=== PATIENT | male | born 1980 | race Caucasian/White ===

== ENCOUNTER → 2016-12-13 | Outpatient (CLI) | payer OTHER ==
[2016-12-13 17:29] LABS: Potassium 24 Hour,Urine 117.8 mmol/24 (25.0-125.0)
== END | disposition home or self-care (01) ==
LOC: LABWHC1 16:13
PROVIDERS: ATTEND Family Medicine
DX: R35.0 Frequency of micturition (principal)
CPT/HCPCS: 36415; 81050; 82340; 82575; 84133; 84156; 84300

== ENCOUNTER 2017-01-20 18:52 | Emergency (ER) | payer OTHER ==
[2017-01-20 19:06] VITALS: TEMP 98.5
[2017-01-20] MEDS ORDERED: LORazepam 2 MG/ML SYRINGE IV PRN ×3 (19:11)
[2017-01-20] MEDS ORDERED: SODIUM CHLORIDE 0.9% 1,000 ML IV STA (19:11)
[2017-01-20] MEDS ORDERED: THIAMINE 100 MG/ML 2 ML VIAL IM STA (19:11)
[2017-01-20 19:45] LABS: Basophils % (A) 1 %; CH 31.1; CHCM 32.9; Eosinophils % (A) 1 %; HCT 43.7 % (39.0-53.0); HDW 1.89; HGB 14.4 gm/dL (13.0-17.5); Luc # (Auto) 0.11; Luc % (Auto) 2; Lymphocytes # (A) 1.6 k/uL (1.0-4.8); Lymphocytes % (A) 29 %; MCH 31.4 pg (25.0-35.0); Mean Platelet Volume 6.7; Monocytes # (A) 0.3 k/uL (0-1.0); Monocytes % (A) 5 %; Neutrophils # (A) 3.6 k/uL (1.3-7.7); Neutrophils % (A) 63 %; RBC 4.59 m/uL (4.30-5.90); RDW 14.7 % (11.5-15.5); WBC 5.7 k/uL (3.8-10.6); WBC (Perox) 5.66
--- NOTE | 2017-01-20 19:56 | ED ---
Psych HPI - General Source: police, RN notes reviewed Mode of arrival: ambulatory <Loretta Nicholas - Last Filed: 01/21/17 05:00> <Niko Carter - Last Filed: 01/21/17 07:18> - General Chief Complaint: Psychiatric Symptoms Stated Complaint: Mental Health Time Seen by Provider: 01/20/17 18:55 - History of Present Illness Initial Comments: 36-year-old male presents to the emergency department with a chief complaint of dictation. The patient states that he is an alcoholic. Patient states that he is a current drinker. The patient states that his called the police to have him come here because detected her that he just wanted to be done with this. He states that he wanted be done with their relationship that they're currently from. The patient denies any suicidal or homicidal ideation with this. Patient denies any thoughts about hurting himself. Patient denies any recent fever, chills, shortness of breath, chest pain, back pain, abdominal pain, nausea vomiting, numbness or tingling, dysuria or hematuria, constipation or diarrhea, headaches or visual changes, or any other current symptoms. (Loretta Nicholas) - Related Data Home Medications Medication Instructions Recorded Confirmed Ibuprofen [Motrin] 800 mg PO Q6HR PRN 01/20/17 01/20/17 PARoxetine HCL [Paxil] 30 mg PO DAILY 01/20/17 01/20/17 busPIRone HCL 15 mg PO TID 01/20/17 01/20/17 Allergies Allergy/AdvReac Type Severity Reaction Status Date / Time No Known Allergies Allergy Verified 01/20/17 19:20 Review of Systems ROS Other: All systems not noted in ROS Statement are negative. <Loretta Nicholas - Last Filed: 01/21/17 05:00> ROS Other: All systems not noted in ROS Statement are negative. <Niko Carter - Last Filed: 01/21/17 07:18> ROS Statement: Those systems with pertinent positive or pertinent negative responses have been documented in the HPI. Past Medical History Past Medical History: No Reported History History of Any Multi-Drug Resistant Organisms: None Reported Past Surgical History: No Surgical Hx Reported Past Psychological History: Anxiety, Depression Smoking Status: Current every day smoker Past Alcohol Use History: Abuse Past Drug Use History: None Reported <Loretta Nicholas - Last Filed: 01/21/17 05:00> General Exam Limitations: no limitations General appearance: alert, in no apparent distress Neck exam: Present: normal inspection. Absent: tenderness, meningismus, lymphadenopathy Respiratory exam: Present: normal lung sounds bilaterally. Absent: respiratory distress, wheezes, rales, rhonchi, stridor Cardiovascular Exam: Present: regular rate, normal rhythm, normal heart sounds. Absent: systolic murmur, diastolic murmur, rubs, gallop, clicks Neurological exam: Present: alert, oriented X3 Psychiatric exam: Present: normal affect, normal mood Skin exam: Present: warm, dry, intact, normal color. Absent: rash <Loretta Nicholas - Last Filed: 01/21/17 05:00> Course <Loretta Nicholas - Last Filed: 01/21/17 05:00> <Niko Carter - Last Filed: 01/21/17 07:18> Vital Signs 01/20/17 01/21/17 19:02 06:00 Temperature 98.5 F Pulse Rate 122 H 78 Respiratory 17 18 Rate Blood Pressure 157/78 106/59 O2 Sat by Pulse 96 98 Oximetry - Reevaluation(s) Reevaluation #1: 01/21/17 05:00 this case will be signed out to Dr. Carter. (Loretta Nicholas) Medical Decision Making - Lab Data Result diagrams: 01/20/17 19:30 01/20/17 19:30 <Loretta Nicholas - Last Filed: 01/21/17 05:00> - Lab Data Result diagrams: 01/20/17 19:30 01/20/17 19:30 <Niko Carter - Last Filed: 01/21/17 07:18> - Medical Decision Making 36-year-old male presents to the emergency department with a chief complaint of medication. Discontinue patient denies any suicidal or homicidal ideation. Patient is at this time intoxicated. at this time patient is clear of any acute medical conditions and can be seen and evaluated by psych and treatment as necessary. (Loretta Nicholas) - Lab Data Lab Results 01/20/17 01/20/17 01/21/17 Range/Units 19:30 19:30 06:15 WBC 5.7 (3.8-10.6) k/uL RBC 4.59 (4.30-5.90) m/uL Hgb 14.4 (13.0-17.5) gm/dL Hct 43.7 (39.0-53.0) % MCV 95.0 (80.0-100.0) fL MCH 31.4 (25.0-35.0) pg MCHC 33.0 (31.0-37.0) g/dL RDW 14.7 (11.5-15.5) % Plt Count 203 (150-450) k/uL Neutrophils % 63 % Lymphocytes % 29 % Monocytes % 5 % Eosinophils % 1 % Basophils % 1 % Neutrophils # 3.6 (1.3-7.7) k/uL Lymphocytes # 1.6 (1.0-4.8) k/uL Monocytes # 0.3 (0-1.0) k/uL Eosinophils # 0.0 (0-0.7) k/uL Basophils # 0.0 (0-0.2) k/uL Sodium 146 H (137-145) mmol/L Potassium 4.0 (3.5-5.1) mmol/L Chloride 103 (98-107) mmol/L Carbon Dioxide 25 (22-30) mmol/L Anion Gap 18 mmol/L BUN 24 H (9-20) mg/dL Creatinine 0.90 (0.66-1.25) mg/dL Est GFR (MDRD) Af Amer >60 (>60 ml/min/1.73 sqM) Est GFR (MDRD) Non-Af >60 (>60 ml/min/1.73 sqM) Glucose 137 H (74-99) mg/dL Calcium 9.1 (8.4-10.2) mg/dL Phosphorus 3.6 (2.5-4.5) mg/dL Magnesium 1.8 (1.6-2.3) mg/dL Total Bilirubin 0.3 (0.2-1.3) mg/dL AST 28 (17-59) U/L ALT 29 (21-72) U/L Alkaline Phosphatase 56 (38-126) U/L Total Protein 7.3 (6.3-8.2) g/dL Albumin 4.6 (3.5-5.0) g/dL Amylase 94 (30-110) U/L Lipase 231 (23-300) U/L Urine Color Yellow Urine Appearance Cloudy (Clear) Urine pH 6.5 (5.0-8.0) Ur Specific Lexa 1.023 (1.001-1.035) Urine Protein Trace H (Negative) Urine Glucose (UA) Negative (Negative) Urine Ketones Negative (Negative) Urine Blood Negative (Negative) Urine Nitrite Negative (Negative) Urine Bilirubin Negative (Negative) Urine Urobilinogen <2.0 (<2.0) mg/dL Ur Leukocyte Esterase Negative (Negative) Urine RBC 1 (0-5) /hpf Urine WBC <1 (0-5) /hpf Amorphous Sediment Occasional H (None) /hpf Urine Mucus Rare H (None) /hpf Urine Opiates Screen Not Detected (NotDetected) Ur Oxycodone Screen Not Detected (NotDetected) Urine Methadone Screen Not Detected (NotDetected) Ur Propoxyphene Screen Not Detected (NotDetected) Ur Barbiturates Screen Not Detected (NotDetected) U Tricyclic Antidepress Not Detected (NotDetected) Ur Phencyclidine Scrn Not Detected (NotDetected) Ur Amphetamines Screen Not Detected (NotDetected) U Methamphetamines Scrn Not Detected (NotDetected) U Benzodiazepines Scrn Not Detected (NotDetected) Urine Cocaine Screen Not Detected (NotDetected) U Marijuana (THC) Screen Not Detected (NotDetected) Disposition <Loretta Nicholas - Last Filed: 01/21/17 05:00> <Niko Carter - Last Filed: 01/21/17 07:18> Clinical Impression: Alcohol intoxication Disposition: HOME SELF-CARE Condition: Fair Instructions: Alcohol Intoxication (ED) Referrals: Eliezer Sauceda MD [Primary Care Provider] - 1-2 days
[2017-01-20 20:08] LABS: ALT 29 U/L (21-72); AST 28 U/L (17-59); Alkaline Phosphatase 56 U/L (38-126); Amylase 94 U/L (30-110); Anion Gap 18 mmol/L; Blood Urea Nitrogen 24 mg/dL (9-20); Calcium 9.1 mg/dL (8.4-10.2); Carbon Dioxide 25 mmol/L (22-30); Chloride 103 mmol/L (98-107); Glucose 137 mg/dL (74-99); Magnesium 1.8 mg/dL (1.6-2.3); Non-African American GFR(MDRD) >60 (>60 ml/min/1.73 sqM); Phosphorous 3.6 mg/dL (2.5-4.5); Sodium 146 mmol/L (137-145); Total Bilirubin 0.3 mg/dL (0.2-1.3); Total Protein 7.3 g/dL (6.3-8.2)
[2017-01-21 06:10] VITALS: BP 106/59; PULSE 78; RESP 18
[2017-01-21 06:46] LABS: Amorphous Sediment,Urine Occasional /hpf; Appearance,Urine Cloudy (Clear); Bilirubin,Urine Negative (Negative); Glucose,Urine (UA) Negative (Negative); Ketones,Urine Negative (Negative); Leukocyte Esterase,Urine Negative (Negative); Mucus,Urine Rare /hpf; Nitrite,Urine Negative (Negative); PH, Urine 6.5 (5.0-8.0); Particle Count 4959; Protein,Urine Trace (Negative); RBC,Urine 1 /hpf (0-5); Specific Gravity,Urine 1.023 (1.001-1.035); UA Billing (MACRO vs. MICRO) MICRO; Urobilinogen,Urine <2.0 mg/dL (<2.0); WBC,Urine <1 /hpf (0-5)
[2017-01-21] MEDS ORDERED: THIAMINE 100 MG TAB PO SCH (12:00)
== END 2017-01-21 08:51 | disposition home or self-care (01) ==
LOC: EC 18:52
DX: F10.129 Alcohol abuse with intoxication, unspecified (principal); F32.9 Major depressive disorder, single episode, unspecified; F41.9 Anxiety disorder, unspecified; F17.200 Nicotine dependence, unspecified, uncomplicated; Z79.899 Other long term (current) drug therapy
CPT/HCPCS: 36415; 80053; 82150; 83690; 83735; 84100; 85025; 81001; 80306; 99284; 96374; 96361; 96372; J2060; J3411

== ENCOUNTER 2017-03-23 16:39 | Emergency (ER) | payer OTHER ==
--- NOTE | 2017-03-23 17:13 | ED ---
General Adult HPI - General Source: patient, police, RN notes reviewed Mode of arrival: ambulatory Limitations: no limitations <Kushal Guzman - Last Filed: 03/24/17 00:18> <Baldomero Price - Last Filed: 03/24/17 06:38> <Baldomero Fletcher - Last Filed: 03/24/17 08:28> - General Chief complaint: Psychiatric Symptoms Stated complaint: petition Time Seen by Provider: 03/23/17 16:50 - History of Present Illness Initial comments: Patient is a pleasant 36-year-old male presenting to the emergency department by police escort for psychiatric evaluation. Patient does have a petition and Court order. Patient does admit to being depressed. Patient does admit to taking alcohol and having a problem with alcohol.Please use medication as discussed. Please follow-up with family doctor in the next 2 days of symptoms have not improved. Please return to emergency room if the symptoms increase or worsen or for any other concerns. Denies suicidal thoughts or suicidal threats. Patient denies homicidal thoughts. Patient denies physical complaint except for a mild toothache. No hallucinations. Patient has previously been admitted for alcohol and psychiatric problems. (Kushal Guzman) - Related Data Home Medications Medication Instructions Recorded Confirmed Ibuprofen [Motrin] 800 mg PO Q8H PRN 01/20/17 03/23/17 busPIRone HCL 15 mg PO TID 01/20/17 03/23/17 Sertraline [Zoloft] 100 mg PO DAILY 03/23/17 03/23/17 Allergies Allergy/AdvReac Type Severity Reaction Status Date / Time No Known Allergies Allergy Verified 03/23/17 17:28 Review of Systems ROS Other: All systems not noted in ROS Statement are negative. Constitutional: Denies: fever Eyes: Denies: eye pain ENT: Reports: dental pain. Denies: ear pain Respiratory: Denies: cough Cardiovascular: Denies: chest pain Endocrine: Denies: fatigue Gastrointestinal: Denies: abdominal pain Genitourinary: Denies: dysuria Musculoskeletal: Denies: back pain Skin: Denies: rash Neurological: Denies: weakness Psychiatric: Reports: depression. Denies: auditory hallucinations, visual hallucinations, homicidal thoughts <Kushal Guzman - Last Filed: 03/24/17 00:18> ROS Other: All systems not noted in ROS Statement are negative. <Baldomero Price - Last Filed: 03/24/17 06:38> ROS Other: All systems not noted in ROS Statement are negative. <Baldomero Fletcher - Last Filed: 03/24/17 08:28> ROS Statement: Those systems with pertinent positive or pertinent negative responses have been documented in the HPI. Past Medical History Past Medical History: No Reported History History of Any Multi-Drug Resistant Organisms: None Reported Past Surgical History: No Surgical Hx Reported Past Psychological History: Anxiety, Depression Smoking Status: Current every day smoker Past Alcohol Use History: Abuse Past Drug Use History: None Reported <Kushal Guzman - Last Filed: 03/24/17 00:18> General Exam Limitations: no limitations General appearance: alert, in no apparent distress, appears intoxicated Head exam: Present: atraumatic Eye exam: Present: normal appearance, PERRL ENT exam: Present: normal oropharynx, other (Patient complains of discomfort of the right upper lateral incisor without swelling or erythema.) Neck exam: Present: normal inspection Respiratory exam: Present: normal lung sounds bilaterally Cardiovascular Exam: Present: regular rate, normal rhythm GI/Abdominal exam: Present: soft. Absent: tenderness Extremities exam: Present: normal inspection Neurological exam: Present: alert Psychiatric exam: Present: depressed Skin exam: Present: normal color <Kushal Guzman - Last Filed: 03/24/17 00:18> Course <Kushal Guzman - Last Filed: 03/24/17 00:18> <Baldomero Price - Last Filed: 03/24/17 06:38> <Baldomero Fletcher - Last Filed: 03/24/17 08:28> Vital Signs 03/23/17 03/24/17 16:43 04:01 Temperature 99.0 F Pulse Rate 96 60 Respiratory 18 18 Rate Blood Pressure 121/81 130/59 O2 Sat by Pulse 97 96 Oximetry - Reevaluation(s) Reevaluation #1: 03/24/17 00:59 Dr. Price will be taking over care patient for final disposition. Patient is medically stable for psychiatric evaluation pending patient being sober. (Kushal Guzman) Medical Decision Making <Kushal Guzman - Last Filed: 03/24/17 00:18> <Baldomero Price - Last Filed: 03/24/17 06:38> <Baldomero Fletcher - Last Filed: 03/24/17 08:28> - Medical Decision Making Dr. Fletcher will be taking over the care of this patient at 7 AM (Baldomero Price) 36 male seen and evaluated by psychiatry, patient meets qualifications for inpatient psychiatric evaluation and treatment (Baldomero Fletcher) - Lab Data Lab Results 03/23/17 Range/Units 17:26 Urine Opiates Screen Not Detected (NotDetected) Ur Oxycodone Screen Not Detected (NotDetected) Urine Methadone Screen Not Detected (NotDetected) Ur Propoxyphene Screen Not Detected (NotDetected) Ur Barbiturates Screen Not Detected (NotDetected) U Tricyclic Antidepress Not Detected (NotDetected) Ur Phencyclidine Scrn Not Detected (NotDetected) Ur Amphetamines Screen Not Detected (NotDetected) U Methamphetamines Scrn Not Detected (NotDetected) U Benzodiazepines Scrn Not Detected (NotDetected) Urine Cocaine Screen Not Detected (NotDetected) U Marijuana (THC) Screen Not Detected (NotDetected) Disposition <Kushal Guzman - Last Filed: 03/24/17 00:18> <Baldomero Price - Last Filed: 03/24/17 06:38> <Baldomero Fletcher - Last Filed: 03/24/17 08:28> Clinical Impression: Suicidal ideation, Depression Disposition: TRANSFER TO PSYCH HOSP/UNIT Condition: Fair Referrals: Eliezer Sauceda MD [Primary Care Provider] - 1-2 days
[2017-03-23] MEDS ORDERED: ACETAMINOPHEN TAB 325 MG TAB PO STA (18:53)
[2017-03-23] MEDS ORDERED: SERTRALINE 100 MG TAB PO STA (19:46)
[2017-03-23] MEDS ORDERED: busPIRone HCl 10 MG TAB PO STA (19:46)
[2017-03-24] MEDS ORDERED: IBUPROFEN 800 MG TAB PO STA (03:50)
[2017-03-24] MEDS ORDERED: LORazepam 1 MG TAB PO STA ×3 (03:50→11:28)
[2017-03-24] MEDS ORDERED: SERTRALINE 100 MG TAB PO STA (07:45)
[2017-03-24] MEDS ORDERED: busPIRone HCl 5 MG TAB PO STA (07:45)
[2017-03-24] MEDS ORDERED: ONDANSETRON ODT 4 MG TAB PO STA (08:55)
[2017-03-24 09:01] LABS: Appearance,Urine Clear (Clear); Bilirubin,Urine Negative (Negative); Calcium Oxalate Crystals,Urine Rare /hpf; Glucose,Urine (UA) Negative (Negative); Ketones,Urine Negative (Negative); Leukocyte Esterase,Urine Negative (Negative); Mucus,Urine Few /hpf; Nitrite,Urine Negative (Negative); Particle Count 4296; Protein,Urine 2+ (Negative); RBC,Urine 13 /hpf (0-5); Specific Gravity,Urine 1.023 (1.001-1.035); Squamous Epithelial Cell,Urine <1 /hpf (0-4); UA Billing (MACRO vs. MICRO) MICRO; Urobilinogen,Urine <2.0 mg/dL (<2.0); WBC,Urine <1 /hpf (0-5)
[2017-03-24 09:05] LABS: Basophils % (A) 0 %; CH 31.5; Eosinophils % (A) 0 %; HCT 44.1 % (39.0-53.0); HDW 1.94; HGB 15.2 gm/dL (13.0-17.5); Luc # (Auto) 0.11; Luc % (Auto) 2; Lymphocytes % (A) 14 %; MCH 31.9 pg (25.0-35.0); MCHC 34.4 g/dL (31.0-37.0); MCV 92.8 fL (80.0-100.0); Mean Platelet Volume 7.2; Monocytes # (A) 0.3 k/uL (0-1.0); Monocytes % (A) 4 %; Neutrophils # (A) 5.8 k/uL (1.3-7.7); Neutrophils % (A) 80 %; RBC 4.75 m/uL (4.30-5.90); RDW 13.5 % (11.5-15.5); WBC 7.3 k/uL (3.8-10.6); WBC (Perox) 7.58
[2017-03-24 09:14] LABS: ALT 44 U/L (21-72); AST 50 U/L (17-59); Alkaline Phosphatase 59 U/L (38-126); Anion Gap 10 mmol/L; Blood Urea Nitrogen 19 mg/dL (9-20); Calcium 9.5 mg/dL (8.4-10.2); Carbon Dioxide 27 mmol/L (22-30); Chloride 100 mmol/L (98-107); Glucose 108 mg/dL (74-99); Non-African American GFR(MDRD) >60 (>60 ml/min/1.73 sqM); Potassium 4.3 mmol/L (3.5-5.1); Sodium 137 mmol/L (137-145); Total Bilirubin 0.9 mg/dL (0.2-1.3); Total Protein 7.6 g/dL (6.3-8.2)
[2017-03-24 11:15] VITALS: BP 135/68; PULSE 67; RESP 16; TEMP 98.5
== END 2017-03-24 11:47 ==
LOC: EC 16:39
DX: F32.9 Major depressive disorder, single episode, unspecified (principal); R45.851 Suicidal ideations; F10.10 Alcohol abuse, uncomplicated; F17.200 Nicotine dependence, unspecified, uncomplicated; Z79.899 Other long term (current) drug therapy
CPT/HCPCS: 36415; 80053; 80306; 81001; 82075; 85025; 99285

== ENCOUNTER 2017-10-18 02:39 | Emergency (ER) | payer OTHER ==
[2017-10-18] MEDS ORDERED: ACETAMINOPHEN TAB 500 MG TAB PO STA (03:05)
--- NOTE | 2017-10-18 03:38 | XR ---
EXAM: XR Left Toe(s), 2 or More Views CLINICAL HISTORY: ITS.REASON XR Reason: Pain TECHNIQUE: Frontal, lateral and oblique views of toe(s) of the left foot. COMPARISON: No relevant prior studies available. FINDINGS: Bones/joints: Tiny ossific fragments adjacent to the first phalanx is likely due to remote injury. No acute fracture. No dislocation. Soft tissues: Mild soft tissue swelling adjacent to the first interphalangeal joint No radiopaque foreign body. IMPRESSION: No acute fracture.
--- NOTE | 2017-10-18 04:08 | ED ---
Wound/Laceration HPI - General Chief Complaint: Wound/Laceration Stated Complaint: head lac,toe injury Time Seen by Provider: 10/18/17 02:57 Source: patient Mode of arrival: ambulatory Limitations: no limitations - History of Present Illness Initial Comments: 37-year-old male patient presents to the emergency department today for evaluation after falling while hanging curtains. Patient states that he was standing on a toy box that was about 2 feet tall. He states that his foot fell through the toy box, he fell backwards, states that the lid of the toy box flew forward striking him in the forehead. He denies any loss of consciousness at time of injury. He reports a laceration to his forehead, reports a mild headache, and is complaining of left great toe pain and discomfort. He reports he did have a tetanus vaccine in the last 5 years. Patient denies any neck pain , back pain, chest pain, shortness of breath, dizziness, weakness, abdominal pain, nausea, vomiting, or difficulties with bowel movements or urination. - Related Data Previous Rx's Medication Instructions Recorded Amoxicillin/Potassium Clav 1 tab PO Q12HR #20 tab 08/06/17 [Augmentin 875-125 Tablet] HYDROmorphone [Dilaudid] 1 mg PO Q4HR PRN #12 tab 08/06/17 Allergies Allergy/AdvReac Type Severity Reaction Status Date / Time No Known Allergies Allergy Verified 10/18/17 02:48 Review of Systems ROS Statement: Those systems with pertinent positive or pertinent negative responses have been documented in the HPI. ROS Other: All systems not noted in ROS Statement are negative. Past Medical History Past Medical History: No Reported History History of Any Multi-Drug Resistant Organisms: None Reported Past Surgical History: No Surgical Hx Reported Past Psychological History: Anxiety, Depression Smoking Status: Current every day smoker Past Alcohol Use History: None Reported Past Drug Use History: None Reported General Exam Limitations: no limitations General appearance: alert, in no apparent distress, other (Social well-developed , well-nourished adult male patient in no acute distress. Vital signs upon presentation are temperature 97.6F, pulse 79, respirations 18, blood pressure 120/76, pulse ox 100% on room air.) Head exam: Present: other (Patient has a stellate laceration noted to the center of the forehead, there is surrounding hematoma.). Absent: atraumatic, normal inspection Eye exam: Present: normal appearance, PERRL, EOMI. Absent: scleral icterus, conjunctival injection, nystagmus, periorbital swelling, periorbital tenderness ENT exam: Present: normal exam, normal oropharynx, mucous membranes moist, TM's normal bilaterally Neck exam: Present: normal inspection, full ROM, other (Nontender, no step-off, no deformity to firm midline palpation of the posterior cervical spine. Full range of motion without pain or limitation.). Absent: tenderness, meningismus, lymphadenopathy Respiratory exam: Present: normal lung sounds bilaterally. Absent: respiratory distress, wheezes, rales, rhonchi, stridor Cardiovascular Exam: Present: regular rate, normal rhythm, normal heart sounds. Absent: systolic murmur, diastolic murmur, rubs, gallop, clicks GI/Abdominal exam: Present: soft, normal bowel sounds. Absent: distended, tenderness, guarding, rebound, rigid Extremities exam: Present: full ROM, normal capillary refill, other (Patient has a superficial abrasion noted to the medial left forearm, no bony tenderness. There is an abrasion and ecchymosis noted to the dorsum of the left great toe. Skin to all 4 extremities is pink, warm, and dry. Cap refills less than 3 seconds. Pedal and posttibial pulses are 2+ and equal bilaterally. Radial pulses are 2+ and equal bilaterally.). Absent: normal inspection, tenderness, pedal edema, joint swelling, calf tenderness Back exam: Present: normal inspection, other (Nontender, no step-off, no deformity to firm midline palpation of the thoracic and lumbar vertebrae. Full range of motion without pain or limitation.). Absent: vertebral tenderness Neurological exam: Present: alert, oriented X3, CN II-XII intact, other ( Strength in all 4 cavities is 5/5.) Psychiatric exam: Present: normal affect, normal mood Skin exam: Present: warm, dry, intact, normal color. Absent: rash Course Vital Signs 10/18/17 10/18/17 02:44 04:14 Temperature 97.6 F 97.9 F Pulse Rate 79 72 Respiratory 18 16 Rate Blood Pressure 120/76 137/82 O2 Sat by Pulse 100 98 Oximetry Procedures - Laceration Laceration #1 Consent Obtained: verbal consent Time Out Performed: Yes Indication: laceration Site: face (Forehead) Size (cm): 2 Description: stellate Depth: simple, single layer Anesthetic Used: lidocaine 1% Anesthesia Technique: local infiltration Amount (mls): 3 Pre-repair: irrigated extensively Type of Sutures: nylon Size of Sutures: 5-0, 6-0 Number of Sutures: 4 Technique: simple, interrupted Patient Tolerated Procedure: well, no complications Medical Decision Making - Medical Decision Making 37 old male patient presented to the emergency department today for evaluation after falling from a toy box. Physical examination did reveal a small 2 cm laceration to the center of the forehead. There is no bony step-off or deformity surrounding the laceration. Patient also had multiple abrasions and contusions. Patient is neurologically intact. He did describe a headache and some mild nausea. I did discuss that symptoms could be consistent with a mild concussion. He was educated regarding signs or symptoms of worsening head injury. I informed him that his x-ray of the toe was negative for any acute fractures. I discussed use of ice to the painful areas. Discussed use of Tylenol and IV for pain control. He is instructed to return here immediately for any new, worsening, or concerning symptoms. He verbalizes understanding and agrees with this plan. - Radiology Data Radiology results: report reviewed, image reviewed Two-view x-ray of the chest shows a heart and mediastinum are normal. Lungs are clear. Diaphragm is normal. Bony thorax appears normal. Impression by Dr. High shows normal chest with no change. Disposition Clinical Impression: Concussion, Laceration, Contusion of great toe Disposition: HOME SELF-CARE Condition: Good Instructions: Care For Your Stitches (ED), Laceration (ED), Concussion (ED), Contusion in Adults (ED), Hematoma (ED) Additional Instructions: Keep wound clean and dry. Return in 3-5 days to have your stitches removed. Clean wound twice daily with warm water and antibacterial soap. Apply ice to the painful areas 20 minutes at a time at least 4 times daily. Follow-up with your primary care physician for recheck in 1-2 days. Return here immediately for any new, worsening, or concerning symptoms. Referrals: Eliezer Sauceda MD [Primary Care Provider] - 1-2 days Time of Disposition: 04:08
[2017-10-18 04:15] VITALS: BP 137/82; PULSE 72; RESP 16; TEMP 97.9
== END 2017-10-18 04:14 | disposition home or self-care (01) ==
LOC: EC 02:39
DX: S06.0X0A Concussion without loss of consciousness, initial encounter (principal); S01.81XA Laceration without foreign body of other part of head, initial encounter; S90.112A Contusion of left great toe without damage to nail, initial encounter; F17.200 Nicotine dependence, unspecified, uncomplicated; W17.89XA Other fall from one level to another, initial encounter; W20.8XXA Other cause of strike by thrown, projected or falling object, initial encounter; Y92.009 Unspecified place in unspecified non-institutional (private) residence as the place of occurrence of the external cause
CPT/HCPCS: 12011; 99283

== ENCOUNTER → 2019-02-14 | Outpatient (CLI) | payer BC ==
--- NOTE | 2019-02-15 07:10 | US ---
EXAMINATION TYPE: US kidneys/renal and bladder DATE OF EXAM: 02/14/2019 COMPARISON: NONE CLINICAL HISTORY: R35.0 Frequency of micturition. Frequent urination EXAM MEASUREMENTS: Right Kidney: 11.0 x 4.6 x 5.0 cm Left Kidney: 11.1 x 6.4 x 5.0 cm Post Void Residual Volume: 12.8 mL Right Kidney: No hydronephrosis or nephrolithiasis Left Kidney: wnl Bladder: wnl Bilateral Jets seen: yes Normal Post Void Residual: yes IMPRESSION: No definite hydronephrosis or nephrolithiasis.
--- NOTE | 2019-02-15 07:13 | US ---
EXAMINATION TYPE: US scrotum with doppler. Grayscale and color Doppler Duplex imaging performed of t neha scrotum. DATE OF EXAM: 02/14/2019 COMPARISON: NONE CLINICAL HISTORY: N50.819.... Frequent urination EXAM MEASUREMENTS: TESTICLES: Right Testicle: 5.0 x 2.6 x 3.4 cm Left Testicle: 4.8 x 2.8 x 3.0 cm EPIDIDYMIS HEAD: Right Epididymis: 0.7 x 1.4 x 1.7 cm Left Epididymis: 1.0 x 1.3 x 1.6 cm Doppler performed to assess for testicular vascularity; good bilateral color flow and waveforms are s een. There is no evidence of testicular torsion. Presence of hydroceles: no Presence of varicoceles: no Left epididymis: 0.4cm cyst IMPRESSION: 1. There is a 4 mm left epididymal cyst.
== END | disposition home or self-care (01) ==
LOC: RADUSWWP 15:42
PROVIDERS: ATTEND Family Medicine
DX: N50.3 Cyst of epididymis (principal); R35.0 Frequency of micturition
CPT/HCPCS: 76770; 76870; 93975

== ENCOUNTER 2019-06-07 16:02 | Emergency (ER) | payer BC ==
[2019-06-07] MEDS ORDERED: SODIUM CHLORIDE 0.9% 1,000 ML IV ONE (16:40)
[2019-06-07] MEDS ORDERED: ONDANSETRON ODT 4 MG TAB PO STA (16:42)
[2019-06-07 17:17] LABS: Basophils % (A) 0 %; Eosinophils # (A) 0.1 k/uL (0-0.7); Eosinophils % (A) 1 %; HGB 13.8 gm/dL (13.0-17.5); Lymphocytes # (A) 2.3 k/uL (1.0-4.8); Lymphocytes % (A) 21 %; MCH 31.1 pg (25.0-35.0); MCHC 32.9 g/dL (31.0-37.0); MCV 94.4 fL (80.0-100.0); Mean Platelet Volume 7.1; Monocytes # (A) 0.5 k/uL (0-1.0); Monocytes % (A) 5 %; Neutrophils # (A) 8.2 k/uL (1.3-7.7); Neutrophils % (A) 73 %; Platelet Count 296 k/uL (150-450); RBC 4.45 m/uL (4.30-5.90); RDW 12.7 % (11.5-15.5); WBC 11.4 k/uL (3.8-10.6)
[2019-06-07 17:29] LABS: ALT 27 U/L (21-72); AST 26 U/L (17-59); African American GFR (CKD) >90 (>60 ml/min/1.73 sqM); Albumin 4.8 g/dL (3.5-5.0); Alkaline Phosphatase 45 U/L (38-126); Anion Gap 12 mmol/L; Blood Urea Nitrogen 7 mg/dL (9-20); Calcium 9.5 mg/dL (8.4-10.2); Carbon Dioxide 26 mmol/L (22-30); Chloride 100 mmol/L (98-107); Glucose 91 mg/dL (74-99); Potassium 4.4 mmol/L (3.5-5.1); Sodium 138 mmol/L (137-145); Total Bilirubin 0.6 mg/dL (0.2-1.3); Total Protein 7.7 g/dL (6.3-8.2)
--- NOTE | 2019-06-07 17:51 | ED ---
General Adult HPI - General Chief complaint: Recheck/Abnormal Lab/Rx Stated complaint: needs fluids, night sweats, shaking Time Seen by Provider: 06/07/19 16:10 Source: patient Mode of arrival: ambulatory Limitations: no limitations - History of Present Illness Initial comments: The patient is a 38-year-old male presents to the emergency department with reported "withdrawal like symptoms". The patient has a previous history of alcohol abuse. States that he hasn't had a drink in 30 days. His primary care physician did give him a shot of vivatrol 2 days ago. He states that one hour after the shot was administered that he began having symptoms of nausea, vomiting and decreased appetite. He was also reporting to shakes and generalized weakness. Called his primary care physician who recommended he come into the emergency room for laboratory studies. The patient denies drinking alcohol or using any illicit drugs. No other medication changes. He denies any sick contacts or recent travel. No abdominal pain. Denies any changes in bowel or bladder habits. No chest pain or shortness of breath. Her no other alleviating, precipitating or modifying factors - Related Data Home Medications Medication Instructions Recorded Confirmed busPIRone HCl [Buspar] 10 mg PO TID 06/07/19 06/07/19 Previous Rx's Medication Instructions Recorded LORazepam [Ativan] 0.5 mg PO TID PRN 3 Days #9 tab 06/07/19 Ondansetron Odt [Zofran Odt] 4 mg PO Q8HR PRN #10 tab 06/07/19 Allergies Allergy/AdvReac Type Severity Reaction Status Date / Time No Known Allergies Allergy Verified 06/07/19 17:14 Review of Systems ROS Statement: Those systems with pertinent positive or pertinent negative responses have been documented in the HPI. ROS Other: All systems not noted in ROS Statement are negative. Past Medical History Past Medical History: No Reported History History of Any Multi-Drug Resistant Organisms: None Reported Past Surgical History: No Surgical Hx Reported Past Psychological History: Anxiety, Depression Smoking Status: Current every day smoker Past Alcohol Use History: Abuse Past Drug Use History: None Reported General Exam Limitations: no limitations General appearance: alert, in no apparent distress Head exam: Present: atraumatic, normocephalic, normal inspection Eye exam: Present: normal appearance, PERRL, EOMI. Absent: scleral icterus, conjunctival injection, periorbital swelling ENT exam: Present: normal exam, mucous membranes moist Neck exam: Present: normal inspection. Absent: tenderness, meningismus, lymphadenopathy Respiratory exam: Present: normal lung sounds bilaterally. Absent: respiratory distress, wheezes, rales, rhonchi, stridor Cardiovascular Exam: Present: regular rate, normal rhythm, normal heart sounds. Absent: systolic murmur, diastolic murmur, rubs, gallop, clicks GI/Abdominal exam: Present: soft, normal bowel sounds. Absent: distended, tenderness, guarding, rebound, rigid Extremities exam: Present: normal inspection, full ROM, normal capillary refill. Absent: tenderness, pedal edema, joint swelling, calf tenderness Back exam: Present: normal inspection Neurological exam: Present: alert, oriented X3, CN II-XII intact Psychiatric exam: Present: normal affect, normal mood Skin exam: Present: warm, dry, intact, normal color. Absent: rash Course Vital Signs 06/07/19 06/07/19 16:05 19:31 Temperature 98.1 F 98.4 F Pulse Rate 78 70 Respiratory 20 18 Rate Blood Pressure 119/76 103/59 O2 Sat by Pulse 99 97 Oximetry EKG Findings - EKG Comments: EKG Findings:: EKG demonstrates a normal sinus rhythm with a ventricular rate of 64. AR interval 158. QRS 104. QTC 408. There are no acute ST segment elevations or depressions concerning for ischemic change. No signs of Ltvqi-[id number]-Uahpe or Brugada syndrome Medical Decision Making - Medical Decision Making Upon arrival the patient was placed into room 20. A history and physical exam was performed. PIV was established. Patient was given a liter bolus of normal saline. He was also given 4 mg of Zofran for nausea. Lab studies were conducted. Patient with blood cell count 11.4, BUN of 7. TSH is normal. Patient also has a 12-lead EKG performed. I did reevaluate the patient who reports improvement in his symptoms. At this time the patient does feel comfortable going home. I will prescribe him Zofran and Ativan to be taken at home for her symptoms. Side effect profile is discussed. He is to not work or drive while taking the medications. He needs to follow up with his primary care physician. The patient agreed to this. If he has any new or worsening symptoms, he should return to the emergency room. He was discharged home in stable condition - Lab Data Result diagrams: 06/07/19 17:09 06/07/19 17:09 Lab Results 06/07/19 06/07/19 06/07/19 Range/Units 17:09 17:09 17:09 WBC 11.4 H (3.8-10.6) k/uL RBC 4.45 (4.30-5.90) m/uL Hgb 13.8 (13.0-17.5) gm/dL Hct 42.0 (39.0-53.0) % MCV 94.4 (80.0-100.0) fL MCH 31.1 (25.0-35.0) pg MCHC 32.9 (31.0-37.0) g/dL RDW 12.7 (11.5-15.5) % Plt Count 296 (150-450) k/uL Neutrophils % 73 % Lymphocytes % 21 % Monocytes % 5 % Eosinophils % 1 % Basophils % 0 % Neutrophils # 8.2 H (1.3-7.7) k/uL Lymphocytes # 2.3 (1.0-4.8) k/uL Monocytes # 0.5 (0-1.0) k/uL Eosinophils # 0.1 (0-0.7) k/uL Basophils # 0.0 (0-0.2) k/uL Sodium 138 (137-145) mmol/L Potassium 4.4 (3.5-5.1) mmol/L Chloride 100 (98-107) mmol/L Carbon Dioxide 26 (22-30) mmol/L Anion Gap 12 mmol/L BUN 7 L (9-20) mg/dL Creatinine 0.83 (0.66-1.25) mg/dL Est GFR (CKD-EPI)AfAm >90 (>60 ml/min/1.73 sqM) Est GFR (CKD-EPI)NonAf >90 (>60 ml/min/1.73 sqM) Glucose 91 (74-99) mg/dL Plasma Lactic Acid Mustapha 0.8 (0.7-2.0) mmol/L Calcium 9.5 (8.4-10.2) mg/dL Total Bilirubin 0.6 (0.2-1.3) mg/dL AST 26 (17-59) U/L ALT 27 (21-72) U/L Alkaline Phosphatase 45 (38-126) U/L Total Protein 7.7 (6.3-8.2) g/dL Albumin 4.8 (3.5-5.0) g/dL TSH 0.823 (0.465-4.680) mIU/L Disposition Clinical Impression: Nausea, Medication adverse effect Disposition: HOME SELF-CARE Condition: Stable Instructions (If sedation given, give patient instructions): Acute Nausea and Vomiting (ED) Additional Instructions: Please follow-up with your primary care doctor in 2-4 days. Return to the emergency room for any new or worsening symptoms. Please take the Ativan as directed. Do not work or drive while you take it. Prescriptions: LORazepam [Ativan] 0.5 mg PO TID PRN 3 Days #9 tab PRN Reason: Anxiety Ondansetron Odt [Zofran Odt] 4 mg PO Q8HR PRN #10 tab PRN Reason: Nausea Is patient prescribed a controlled substance at d/c from ED?: Yes When asked, does pt state using other controlled substances?: No If prescribed controlled substance>3 days was MAPS reviewed?: Prescribed <3 Days Referrals: Jo-Ann Barnett MD [Primary Care Provider] - 1-2 days Time of Disposition: 19:10
[2019-06-07 19:31] VITALS: BP 103/59; PULSE 70; RESP 18; TEMP 98.4
== END 2019-06-07 19:32 | disposition home or self-care (01) ==
LOC: EC 16:02
DX: R11.2 Nausea with vomiting, unspecified (principal); T50.7X5A Adverse effect of analeptics and opioid receptor antagonists, initial encounter; R53.1 Weakness; F32.9 Major depressive disorder, single episode, unspecified; F17.200 Nicotine dependence, unspecified, uncomplicated; F41.9 Anxiety disorder, unspecified; Z79.899 Other long term (current) drug therapy
CPT/HCPCS: 36415; 80053; 83605; 84443; 85025; 93005; 96360; 96361; 99283

== ENCOUNTER → 2021-03-17 | Outpatient (CLI) | payer BC ==
--- NOTE | 2021-03-18 03:02 | MR ---
EXAMINATION TYPE: MR brain wo/w con DATE OF EXAM: 03/17/2021 COMPARISON: None HISTORY: Intermittant headache with vision changes, dizziness CONTRAST: Standard multiplanar, multisequence MRI departmental protocol utilizing 9 mL intravenous Gadavist jhonny olinium contrast. Diffusion images show no evidence of an acute infarct. Ventricles have normal size. There is no mass effect nor midline shift. There is no evidence of intracranial hemorrhage. Brainstem is intact. Cerebellum is intact. Sweet-white matter structures have fairly normal signal pat tern. There is no evidence of cerebral edema. Corpus callosum appears normal. Optic chiasm appears no rmal. There is no evidence of orbital mass. Contrast images show no pathologic enhancement there is n ormal enhancement of the venous sinuses. IMPRESSION: Negative MR scan of the brain.
== END | disposition home or self-care (01) ==
LOC: RADMRIMAIN 09:32
PROVIDERS: ATTEND Family Medicine
DX: R51.9 Headache, unspecified (principal); R42 Dizziness and giddiness; H53.9 Unspecified visual disturbance
CPT/HCPCS: 70553; A9585

== ENCOUNTER 2021-06-13 17:54 | Inpatient (IN) | payer BC ==
[2021-06-13] MEDS ORDERED: SODIUM CHLORIDE 0.9% 1,000 ML IV STA (18:23)
[2021-06-13] MEDS ORDERED: ONDANSETRON 4 MG/2 ML VIAL IVP STA (18:23)
[2021-06-13] MEDS ORDERED: diphenhydrAMINE 50 MG/ML 1 ML VIAL IVP STA (18:23)
[2021-06-13] MEDS ORDERED: MORPHINE SULFATE 4 MG/ML SYRINGE IV STA (18:23)
[2021-06-13] MEDS ORDERED: acetaZOLAMIDE 250 MG TAB PO STA (18:24)
[2021-06-13 19:16] LABS: ALT 30 U/L (4-49); AST 39 U/L (17-59); African American GFR (CKD) >90 (>60 ml/min/1.73 sqM); Albumin 3.3 g/dL (3.5-5.0); Alcohol <10 mg/dL; Alkaline Phosphatase 78 U/L (38-126); Anion Gap 9 mmol/L; Blood Urea Nitrogen 5 mg/dL (9-20); Calcium 8.2 mg/dL (8.4-10.2); Carbon Dioxide 20 mmol/L (22-30); Chloride 97 mmol/L (98-107); Glucose 120 mg/dL (74-99); Magnesium 1.9 mg/dL (1.6-2.3); Non-African American GFR(CKD) >90 (>60 ml/min/1.73 sqM); Potassium 2.9 mmol/L (3.5-5.1); Sodium 126 mmol/L (137-145); Total Bilirubin 1.2 mg/dL (0.2-1.3); Total Protein 5.9 g/dL (6.3-8.2)
[2021-06-13 19:21] LABS: Amylase 713 U/L (30-110)
[2021-06-13 19:34] LABS: Appearance,Urine Clear (Clear); Bilirubin,Urine Negative (Negative); Blood,Urine Trace (Negative); Color,Urine Yellow; Glucose,Urine (UA) Negative (Negative); Ketones,Urine 1+ (Negative); Leukocyte Esterase,Urine Negative (Negative); Nitrite,Urine Negative (Negative); Protein,Urine 1+ (Negative); RBC,Urine 1 /hpf (0-5); Specific Gravity,Urine 1.006 (1.001-1.035); Urobilinogen,Urine <2.0 mg/dL (<2.0); WBC,Urine <1 /hpf (0-5)
[2021-06-13 19:35] LABS: Partial Thromboplastin Time 25.7 sec (22.0-30.0); Prothrombin Time 11.1 sec (9.0-12.0)
[2021-06-13 19:37] LABS: Basophils % (A) 0 %; Eosinophils % (A) 0 %; HCT 38.9 % (39.0-53.0); Lymphocytes # (A) 0.8 k/uL (1.0-4.8); Lymphocytes % (A) 6 %; MCH 32.4 pg (25.0-35.0); MCHC 35.9 g/dL (31.0-37.0); MCV 90.2 fL (80.0-100.0); Mean Platelet Volume 9.6; Monocytes # (A) 0.6 k/uL (0-1.0); Monocytes % (A) 4 %; Neutrophils # (A) 12.3 k/uL (1.3-7.7); Neutrophils % (A) 89 %; RBC 4.32 m/uL (4.30-5.90); RDW 13.2 % (11.5-15.5); WBC 13.9 k/uL (3.8-10.6)
[2021-06-13] MEDS ORDERED: POTASSIUM CHLORIDE ER 20 MEQ TAB.ER PO STA ×2 (19:44→22:32)
--- NOTE | 2021-06-13 19:48 | XR ---
EXAMINATION TYPE: XR chest 2V DATE OF EXAM: 06/13/2021 COMPARISON: NONE HISTORY: Chest pain TECHNIQUE: 2 views FINDINGS: Heart and mediastinum are normal. Lungs are clear. Diaphragm is normal. Bony thorax is inta ct. IMPRESSION: Normal chest. No change.
--- NOTE | 2021-06-13 19:50 | ED ---
General Adult HPI - General Chief complaint: Chest Pain Stated complaint: abd pain/chest pain Time Seen by Provider: 06/13/21 17:58 Source: patient, EMS Mode of arrival: EMS Limitations: no limitations - History of Present Illness Initial comments: Patient is a 40-year-old male with past medical history remarkable for pseudotumor cerebri, chronic neck pain, alcohol abuse who presents from [facility] where he is completing alcohol abuse rehab. He is concerned for having chest tightness throughout the day today and yesterday, as well as mild dyspnea. He is also endorsing some epigastric abdominal pain as well as generalized abdominal pain that is sharp and achy. He is very nonspecific with his pain. He states he has noticed loose stools. He is having nausea as well as nonbilious emesis. He believes that he may have seen some blood in both his stools and emesis, however but is unable to provide how much. He denies any fevers, chills, cough. Denies any current headaches but does endorse worsening neck pain which is acute on chronic secondary to an accident at work. He does not believe he has any acute trauma, however he is expressing worsening neck pain. He is on Acetazolamide for pseudotumor cerebri and did not take his evening medication. He'll ice take lines any acute complaints at this time. Patient was about to be discharged from the rehab facility when he began expressing these symptoms. Denies any history of blood clots. Does endorse a family history of cardiovascular disease. Received aspirin, as well as nitro and Ativan by EMS en route to the hospital. - Related Data Home Medications Medication Instructions Recorded Confirmed Cyclobenzaprine [Flexeril] 5 mg PO HS PRN 06/13/21 06/13/21 acetaZOLAMIDE [Diamox] 250 mg PO BID 06/13/21 06/13/21 Allergies Allergy/AdvReac Type Severity Reaction Status Date / Time pineapple Allergy Unknown Verified 06/13/21 22:17 Review of Systems ROS Statement: Those systems with pertinent positive or pertinent negative responses have been documented in the HPI. Review of Systems: CONST: Denies fever EYES: Denies blurry vision ENT: Denies nasal congestion C/V: Endorses chest tightness RESP: Denies shortness of breath GI: Endorses abdominal pain : Denies dysuria SKIN: Denies rash. MSK: Endorses acute on chronic neck pain NEURO: Denies headache ROS Other: All systems not noted in ROS Statement are negative. Past Medical History Past Medical History: No Reported History Additional Past Medical History / Comment(s): psedotumor History of Any Multi-Drug Resistant Organisms: None Reported Past Surgical History: Tonsillectomy Past Psychological History: Anxiety, Depression Smoking Status: Former smoker Past Alcohol Use History: Abuse Past Drug Use History: Marijuana General Exam - General Exam Comments Initial Comments: General: He is in mild distress secondary primarily to abdominal pain. HEAD: Normal with no signs of head trauma. EYES: PERRLA, EOMI, conjunctiva normal, no discharge. ENT: Hearing grossly intact, normal oropharynx. RESPIRATORY: [Clear breath sounds bilaterally. No wheezes, rales, or rhonchi. C/V: Regular rate and rhythm. S1 and S2 auscultated, no edema, peripheral pulses 2+ and intact throughout ABD: Abdomen is soft, nondistended. Patient is tender to palpation generally, with mild focus in the epigastric region. No rebound tenderness. No peritoneal signs. No guarding. EXT: Mild midline cervical spine tenderness to palpation. SKIN: No rashes or lesions observed on exposed skin. NEURO: Alert and oriented x 4. Cranial nerves II-XII intact. No focal sensory or strength deficits. Limitations: no limitations Course Vital Signs 06/13/21 06/13/21 18:00 21:05 Temperature 98.6 F Pulse Rate 112 H 99 Respiratory 20 20 Rate Blood Pressure 119/77 130/83 O2 Sat by Pulse 98 100 Oximetry Medical Decision Making - Medical Decision Making Based on the patient's presentation and physical exam, I'm concerned for possible intra-abdominal pathology for his current symptoms. Due to his nonspecific chest pain, rule out cardiac etiology pulmonary etiology either. Therefore we will obtain a cardiac workup as well as abdominal labs and d-dimer rule out for pulmonary embolism. Chest x-ray, EKG will also be obtained. I will give him a dose of his nightly acetazolamide. He will be symptomatically treated with IV morphine, IV Zofran, as well as 1 L fluid bolus. He also received 25 mg IV Benadryl. Patient was in agreement this plan. EKG was remarkable for minor sinus tachycardia without any obvious ischemic changes. Patient's chest x-ray showed no acute cardiopulmonary process. There were trace studies are remarkable for a leukocytosis of 13.9. D-dimer is slightly elevated at 3.06. Patient has some electrode abnormalities including hyponatremia of 126, hypokalemia of 2.9, hypochloremia of 97. Patient's tro ponin is negative. Patient has pancreatitis with an elevated amylase of 713 and lipase of 3000. Urinalysis is unremarkable. ETOH level is negative. Covid level is negative. Due to the patient's elevated d-dimer as well as pancreatitis we will obtain CT imaging of the chest as well as abdomen and pelvis. CTA of the chest revealed no signs of acute pulmonary embolism. CT abdomen and pelvis revealed findings concerning for acute pancreatitis. There are no, dictation to the pancreatitis. CT of the cervical spine was also obtained due to his acute on chronic pain which revealed no acute changes. On reevaluation, patient still complaining of nausea as well as abdominal pain. Due to his acute pancreatitis at and electrode abnormalities of like to admit him to the hospital. Due to his hypokalemia was replenished 20 mEq in the emergency department initially additional 20 later on. He was in agreement with this plan. We will continue with pain management and fluid hydration. I spoke with the admitting physician Dr. Coronado was in agreement this plan. Patient was admitted in serious condition. - Lab Data Result diagrams: 06/13/21 18:42 06/13/21 18:42 Lab Results 06/13/21 06/13/21 06/13/21 Range/Units 18:42 18:42 18:42 WBC 13.9 H (3.8-10.6) k/uL RBC 4.32 (4.30-5.90) m/uL Hgb 14.0 (13.0-17.5) gm/dL Hct 38.9 L (39.0-53.0) % MCV 90.2 (80.0-100.0) fL MCH 32.4 (25.0-35.0) pg MCHC 35.9 (31.0-37.0) g/dL RDW 13.2 (11.5-15.5) % Plt Count 61 L (150-450) k/uL MPV 9.6 Neutrophils % 89 % Lymphocytes % 6 % Monocytes % 4 % Eosinophils % 0 % Basophils % 0 % Neutrophils # 12.3 H (1.3-7.7) k/uL Lymphocytes # 0.8 L (1.0-4.8) k/uL Monocytes # 0.6 (0-1.0) k/uL Eosinophils # 0.0 (0-0.7) k/uL Basophils # 0.0 (0-0.2) k/uL PT 11.1 (9.0-12.0) sec INR 1.0 (<1.2) APTT 25.7 (22.0-30.0) sec D-Dimer 3.06 H (<0.60) mg/L FEU Sodium (137-145) mmol/L Potassium (3.5-5.1) mmol/L Chloride (98-107) mmol/L Carbon Dioxide (22-30) mmol/L Anion Gap mmol/L BUN (9-20) mg/dL Creatinine (0.66-1.25) mg/dL Est GFR (CKD-EPI)AfAm (>60 ml/min/1.73 sqM) Est GFR (CKD-EPI)NonAf (>60 ml/min/1.73 sqM) Glucose (74-99) mg/dL Calcium (8.4-10.2) mg/dL Magnesium (1.6-2.3) mg/dL Total Bilirubin (0.2-1.3) mg/dL AST (17-59) U/L ALT (4-49) U/L Alkaline Phosphatase (38-126) U/L Troponin I (0.000-0.034) ng/mL Total Protein (6.3-8.2) g/dL Albumin (3.5-5.0) g/dL Amylase (30-110) U/L Lipase (23-300) U/L Urine Color Yellow Urine Appearance Clear (Clear) Urine pH 7.0 (5.0-8.0) Ur Specific [place] 1.006 (1.001-1.035) Urine Protein 1+ H (Negative) Urine Glucose (UA) Negative (Negative) Urine Ketones 1+ H (Negative) Urine Blood Trace H (Negative) Urine Nitrite Negative (Negative) Urine Bilirubin Negative (Negative) Urine Urobilinogen <2.0 (<2.0) mg/dL Ur Leukocyte Esterase Negative (Negative) Urine RBC 1 (0-5) /hpf Urine WBC <1 (0-5) /hpf Serum Alcohol mg/dL Coronavirus (PCR) (Not Detectd) 06/13/21 06/13/21 06/13/21 Range/Units 18:42 18:42 18:42 WBC (3.8-10.6) k/uL RBC (4.30-5.90) m/uL Hgb (13.0-17.5) gm/dL Hct (39.0-53.0) % MCV (80.0-100.0) fL MCH (25.0-35.0) pg MCHC (31.0-37.0) g/dL RDW (11.5-15.5) % Plt Count (150-450) k/uL MPV Neutrophils % % Lymphocytes % % Monocytes % % Eosinophils % % Basophils % % Neutrophils # (1.3-7.7) k/uL Lymphocytes # (1.0-4.8) k/uL Monocytes # (0-1.0) k/uL Eosinophils # (0-0.7) k/uL Basophils # (0-0.2) k/uL PT (9.0-12.0) sec INR (<1.2) APTT (22.0-30.0) sec D-Dimer (<0.60) mg/L FEU Sodium 126 L (137-145) mmol/L Potassium 2.9 L (3.5-5.1) mmol/L Chloride 97 L (98-107) mmol/L Carbon Dioxide 20 L (22-30) mmol/L Anion Gap 9 mmol/L BUN 5 L (9-20) mg/dL Creatinine 0.79 (0.66-1.25) mg/dL Est GFR (CKD-EPI)AfAm >90 (>60 ml/min/1.73 sqM) Est GFR (CKD-EPI)NonAf >90 (>60 ml/min/1.73 sqM) Glucose 120 H (74-99) mg/dL Calcium 8.2 L (8.4-10.2) mg/dL Magnesium 1.9 (1.6-2.3) mg/dL Total Bilirubin 1.2 (0.2-1.3) mg/dL AST 39 (17-59) U/L ALT 30 (4-49) U/L Alkaline Phosphatase 78 (38-126) U/L Troponin I <0.012 (0.000-0.034) ng/mL Total Protein 5.9 L (6.3-8.2) g/dL Albumin 3.3 L (3.5-5.0) g/dL Amylase 713 H* (30-110) U/L Lipase 3411 H (23-300) U/L Urine Color Urine Appearance (Clear) Urine pH (5.0-8.0) Ur Specific Karn[place] (1.001-1.035) Urine Protein (Negative) Urine Glucose (UA) (Negative) Urine Ketones (Negative) Urine Blood (Negative) Urine Nitrite (Negative) Urine Bilirubin (Negative) Urine Urobilinogen (<2.0) mg/dL Ur Leukocyte Esterase (Negative) Urine RBC (0-5) /hpf Urine WBC (0-5) /hpf Serum Alcohol <10 mg/dL Coronavirus (PCR) Not Detected (Not Detectd) - EKG Data -: EKG Interpreted by Me EKG Comments: 12-lead Electrocardiogram Interpretation Note EKG was reviewed and interpreted by myself. 12-lead ECG performed at 1811 is interpreted by me as revealing sinus tachycardia at a rate of 106 beats per minute. Gower is normal. CT interval is undetectable 6 ms, QRS duration is 82 ms, QTc is 409 ms.. There were no ST or T wave abnormalities to suggest myocardial ischemia or injury. R wave progression across the precordium was satisfactory. By my interpretation this EKG is non-diagnostic for acute ischemia. Disposition Clinical Impression: Hyponatremia, Hypokalemia, Acute pancreatitis, History of alcohol abuse, Elevated d-dimer Disposition: ADMITTED IP TO THIS [facility] Condition: Serious Referrals: Jo-Ann Barnett MD [Primary Care Provider] - 1-2 days
[2021-06-13 19:57] LABS: Lipase 3411 U/L (23-300)
--- NOTE | 2021-06-13 20:00 | CT ---
EXAMINATION TYPE: CT cervical spine wo con DATE OF EXAM: 06/13/2021 COMPARISON: None HISTORY: Pain. History of pseudo tumor cerebri. CT DLP: 316 mGycm Automated exposure control for dose reduction was used. Images obtained from the skull base to T1 vertebra without contrast. The cervical vertebra have normal alignment. Posterior elements are intact. Facet joints are intact. There is degenerative disc space narrowing at C5-6. There is spurring of the endplates. Facet joints are intact. There is no evidence of a fracture. Endplate spur formation at C5-6 show some mild encroachment on the spinal canal. Canal measures 6.5 m m. IMPRESSION: Spondylosis at C5-6 and mild bilateral stenosis. No fracture.
[2021-06-13] MEDS ORDERED: LORazepam 2 MG/ML INJ IV PRN ×3 (20:37)
[2021-06-13] MEDS ORDERED: THIAMINE 100 MG/ML 2 ML VIAL IM STA (20:37)
[2021-06-13 20:47] LABS: Platelet Count 61 k/uL (150-450)
--- NOTE | 2021-06-13 21:31 | CT ---
EXAMINATION TYPE: CT chest angio for PE DATE OF EXAM: 06/13/2021 COMPARISON: None HISTORY: Shortness of breath and abdominal pain. CT DLP: 1412.2 mGycm Automated exposure control for dose reduction was used. CONTRAST: Performed with IV Contrast, patient injected with 100 mL of Isovue 370. Images obtained from the thoracic inlet to the diaphragm with IV contrast Isovue 100 mL. There are 3-D post processed images. The lungs are clear of consolidation. There is some mild interstitial density and subsegmental atelec tasis at the posterior lung bases. There is no pleural effusion. Heart size is normal. There is no pe ricardial effusion. There are no hilar masses. There is no mediastinal adenopathy. Thoracic aorta is intact. There is no aneurysm or dissection. The re is normal contrast opacification of the pulmonary arteries. There are no filling defects. There is bilateral gynecomastia. The thoracic spine is intact. There is no compression fracture. IMPRESSION: No evidence of pulmonary embolism. Mild subsegmental atelectasis.
--- NOTE | 2021-06-13 21:38 | CT ---
EXAMINATION TYPE: CT abdomen pelvis w con DATE OF EXAM: 06/13/2021 COMPARISON: None HISTORY: Shortness of breath and abdominal pain. CT DLP: 1412.2 mGycm Automated exposure control for dose reduction was used. CONTRAST: Performed with IV Contrast, patient injected with 100 mL of Isovue 370. Images obtained from the diaphragm to the floor the pelvis with IV contrast. There is mild subsegmental atelectasis at the lung bases. Heart size is normal. There is minimal pleu ral thickening left lung base. Liver spleen stomach appear intact. There is some fat stranding and fl uid around the tail of the pancreas and body of the pancreas. Gallbladder appears normal. The bile du cts are not dilated. There is no adrenal mass. Kidneys show satisfactory contrast opacification. There is no hydronephrosi s. Ureters are not dilated. There is no retroperitoneal adenopathy. There is free fluid in the pelvis and paracolic gutters with low attenuation. There is no mesenteric edema. There is no sign of free air. There is no sign of thickened appendix. The lumbar vertebra have normal alignment. There is no compression fracture. Bony pelvis is intact. H ip joints are intact. IMPRESSION: There is some retroperitoneal fluid involving the pancreas and left anterior pararenal space suggesti ve of acute pancreatitis. There is some mild abdominal ascites.
[2021-06-13] MEDS ORDERED: MORPHINE SULFATE 4 MG/ML SYRINGE IV PRN (21:40)
[2021-06-13] MEDS ORDERED: ONDANSETRON 4 MG/2 ML VIAL IVP PRN (21:40)
[2021-06-13] MEDS ORDERED: NALOXONE 0.4 MG/ML 1 ML VIAL IV PRN (21:40)
--- NOTE | 2021-06-13 21:48 | HP ---
HISTORY AND PHYSICAL DATE OF SERVICE: 06/13/2021 CHIEF COMPLAINTS: Multiple symptoms, including headache, neck pain, abdominal pain, weakness and anxiety. HISTORY OF PRESENT ILLNESS: This 40-year-old gentleman with a past medical history of multiple medical problems, including pseudotumor cerebri, history of anxiety, depression, being followed Dr. Jo-Ann Barnett in the outpatient setting, was receiving alcohol rehab at [facility]. The patient apparently was in the detox unit, and after one week the patient was able to be transferred. The patient complained of chest tightness, had neck pain, abdominal pain, multiple symptomatology. Abdominal pain was sharp and achy, and the patient was transferred to [facility] for evaluation and treatment. Evaluation in the ER showed sodium 126, potassium 2.9 and evidence of pancreatitis with amylase 713 and lipase 3411. Patient was admitted for further evaluation. COVID-19 is negative. Serum alcohol was less than 10. The patient also had a CT of the brain which was reviewed and showed only spondylosis. CT of the abdomen was requested. There is no history of any fever, rigor or chills at this time. PAST MEDICAL HISTORY: History of pseudotumor cerebri, history of anxiety, depression. MEDICATIONS: Medications prior to admission include buspirone, Zofran, Ativan. Doses are reviewed. ALLERGIES: P[place]APPLE. FAMILY HISTORY: No history of heart disease or strokes in the family. SOCIAL HISTORY: Previous history of smoking. History of alcohol and THC, as mentioned earlier. REVIEW OF SYSTEMS: ENT: No diminished hearing. No diminished vision. CARDIOVASCULAR SYSTEM: No angina, palpitations. RESPIRATORY SYSTEM: No cough, hemoptysis. GI: As mentioned earlier. : No dysuria. NERVOUS SYSTEM: No numbness, weakness. ALLERGY/IMMUNOLOGY: No asthma or hay fever. MUSCULOSKELETAL: As mentioned earlier. HEMATOLOGY/ONCOLOGY: No history of anemia. ENDOCRINE: No history of diabetes or hypothyroidism. CONSTITUTIONAL: As mentioned earlier. DERMATOLOGY: Negative. RHEUMATOLOGY: Negative. PSYCHIATRY: As mentioned earlier. PHYSICAL EXAMINATION: Patient alert and oriented x3. Pulse 112, blood pressure 119/77, respiration 20, temperature 98.6, pulse ox 98% on room air. HEENT: Conjunctivae normal. NECK: No jugular venous distention. CARDIOVASCULAR: S1, S2 muffled. RESPIRATION: Breath sounds diminished at the bases. A few scattered rhonchi and crackles. ABDOMEN: Soft. Mild diffuse discomfort on palpation. LEGS: No edema. No swelling. NERVOUS SYSTEM: Higher functions as mentioned earlier. Moves all 4 limbs. No focal motor or sensory deficit. LYMPHATICS: No lymph node palpable in neck, axillae or groin. SKIN: No ulcer, rash, bleeding. JOINTS: No active deforming arthropathy. LAB STUDIES: WBC 13.9, sodium 126, potassium 2.9. Other labs are noted. ASSESSMENT: 1. Acute delirium tremens and acute alcohol withdrawal syndrome. 2. Acute pancreatitis. 3. Hyponatremia. 4. Hypokalemia. 5. Acute metabolic acidosis. 6. Increased white count. 7. History of pseudotumor cerebri. 8. History of anxiety, depression. 9. History of nicotine dependence. 10.History of THC. RECOMMENDATIONS AND DISCUSSION: In this 40-year-old gentleman who presented with multiple complex medical issues, we will monitor the patient closely, continue the current medications, continue with symptomatic treatment. Otherwise at this time I recommend continuing with DT precautions. Ativan. White count is elevated at this time. No evidence of infection at this time. Will obtain blood cultures. Repeat amylase and lipase. Electrolytes will be repeated at this time. Potassium and magnesium supplements are also done. Prognosis is extremely guarded because of multiple complex medical issues. Further recommendations to follow. A copy of this dictation is being forwarded to Dr. Jo-Ann Barnett, who is the primary physician. MMODL / CARSONN: [id number] /
[2021-06-13] MEDS: SODIUM CHLORIDE 0.9% 1,000 ML IV SCH (22:13)
[2021-06-13] MEDS: HEPARIN SODIUM,PORCINE/PF 5,000 UNIT/0.5 ML SYRINGE SQ SCH (22:14)
[2021-06-13] MEDS: 0.9% NACL WITH KCL 20 MEQ/L 1,000 ML with THIAMINE 100 MG, FOLIC ACID 1 MG IV SCH ×3 (22:14)
[2021-06-13] MEDS: PANTOPRAZOLE 40 MG/10 ML VIAL IVP SCH (22:14)
[2021-06-13] MEDS: HYDROmorphone 0.5 MG/0.5 ML SYRINGE IVP PRN (22:22)
[2021-06-13] MEDS ORDERED: CYCLOBENZAPRINE 5 MG TAB PO PRN (22:32)
[2021-06-14] MEDS: HYDROmorphone 0.5 MG/0.5 ML SYRINGE IVP PRN ×3 (05:25→20:44)
[2021-06-14] MEDS: HYDROcodone/APAP 5-325MG 1 EACH TAB PO PRN ×2 (09:57→22:34)
[2021-06-14] MEDS: PANTOPRAZOLE 40 MG/10 ML VIAL IVP SCH ×2 (09:58→20:46)
[2021-06-14] MEDS: acetaZOLAMIDE 250 MG TAB PO SCH ×2 (09:58→20:51)
[2021-06-14] MEDS: HEPARIN SODIUM,PORCINE/PF 5,000 UNIT/0.5 ML SYRINGE SQ SCH ×2 (09:58→20:46)
[2021-06-14 10:32] LABS: ALT 21 U/L (4-49); AST 34 U/L (17-59); African American GFR (CKD) >90 (>60 ml/min/1.73 sqM); Albumin 2.6 g/dL (3.5-5.0); Alkaline Phosphatase 70 U/L (38-126); Amylase 277 U/L (30-110); Anion Gap 7 mmol/L; Blood Urea Nitrogen 6 mg/dL (9-20); Calcium 7.7 mg/dL (8.4-10.2); Carbon Dioxide 19 mmol/L (22-30); Chloride 104 mmol/L (98-107); Glucose 91 mg/dL (74-99); Lipase 1427 U/L (23-300); Non-African American GFR(CKD) >90 (>60 ml/min/1.73 sqM); Potassium 3.3 mmol/L (3.5-5.1); Sodium 130 mmol/L (137-145); Total Bilirubin 0.8 mg/dL (0.2-1.3); Total Protein 5.1 g/dL (6.3-8.2)
[2021-06-14 10:42] LABS: Basophils % (A) 0 %; Eosinophils % (A) 0 %; HGB 12.3 gm/dL (13.0-17.5); Lymphocytes # (A) 0.8 k/uL (1.0-4.8); Lymphocytes % (A) 7 %; MCH 32.5 pg (25.0-35.0); MCHC 35.2 g/dL (31.0-37.0); MCV 92.2 fL (80.0-100.0); Mean Platelet Volume 9.7; Monocytes # (A) 0.6 k/uL (0-1.0); Monocytes % (A) 5 %; Neutrophils % (A) 86 %; RDW 13.3 % (11.5-15.5); WBC 11.6 k/uL (3.8-10.6)
[2021-06-14 10:59] LABS: Platelet Count 70 k/uL (150-450)
[2021-06-14] MEDS: 0.9% NACL WITH KCL 20 MEQ/L 1,000 ML with THIAMINE 100 MG, FOLIC ACID 1 MG IV SCH ×3 (13:54)
[2021-06-14] MEDS: SODIUM CHLORIDE 0.9% 1,000 ML IV SCH ×2 (13:54→20:52)
--- NOTE | 2021-06-14 17:49 | PN ---
PROGRESS NOTE DATE OF SERVICE: 06/14/2021 This 40-year-old gentleman who was admitted with acute delirium tremens and acute alcohol withdrawal is being closely monitored. Patient also had acute pancreatitis. The patient is being followed closely. An abdomen and pelvis CAT scan was done yesterday which showed some retroperitoneal fluid involving the pancreas suggestive of acute pancreatitis. A CT angio of the chest was also done which was reviewed personally by me and showed no evidence of pulmonary embolism, mild subsegmental atelectasis noted. PAST MEDICAL HISTORY: Reviewed. REVIEW OF SYSTEMS: CARDIOVASCULAR No angina or palpitations. RESPIRATORY No cough, no hemoptysis. GI As mentioned earlier. No dysuria or hematuria. NERVOUS No numbness or weakness. CURRENT MEDICATIONS: Reviewed include [place], Diamox, Flexeril. Ativan, morphine, Protonix, ( ). PHYSICAL EXAMINATION: Alert and oriented x2. Pulse 99, blood pressure 142/80, respiration 18, temperature 98.2, pulse ox 98% on room air. HEENT: Conjunctivae normal. Oral mucosa moist. NECK: No jugular venous distention. No lymph node enlargement. CARDIOVASCULAR: S1, S2, muffled. No S3, no S4, RESPIRATORY: Diminished breath sounds at the bases. A few scattered rhonchi. ABDOMEN: Soft, nontender. LEGS: No edema, no swelling. NERVOUS SYSTEM: No focal deficits. LABS: WBC 7.2, hemoglobin 12.2, sodium 130, potassium 3.3. Amylase 277 and lipase 1427. ASSESSMENT: 1. Acute delirium tremens with acute alcohol withdrawal syndrome. 2. Acute pancreatitis with possible sepsis, present on admission. 3. Hyponatremia. 4. Hypokalemia. 5. Acute metabolic acidosis. 6. Increased WBC. 7. History of pseudotumor cerebri. 8. History of anxiety and depression. 9. History of nicotine dependence. 10.History of THC. RECOMMENDATIONS: Recommend to continue current medications, continue symptomatic treatment. Otherwise, I would also recommend a short course of antibiotics and as well as cultures. Continue with IV fluids. Prognosis guarded because of multiple complex medical issues. Further recommendations to follow. MMODL / IJN: [id number] /
[2021-06-14] MEDS: MEROPENEM 2 GM in SODIUM CHLORIDE 0.9% 100 ML IVPB SCH (17:59)
[2021-06-15] MEDS: MEROPENEM 2 GM in SODIUM CHLORIDE 0.9% 100 ML IVPB SCH ×4 (00:22→23:43)
[2021-06-15] MEDS: 0.9% NACL WITH KCL 20 MEQ/L 1,000 ML with THIAMINE 100 MG, FOLIC ACID 1 MG IV SCH ×6 (00:22→12:05)
[2021-06-15] MEDS: HYDROmorphone 0.5 MG/0.5 ML SYRINGE IVP PRN ×4 (02:27→21:56)
[2021-06-15] MEDS: SODIUM CHLORIDE 0.9% 1,000 ML IV SCH ×2 (04:37→15:58)
[2021-06-15] MEDS: HYDROcodone/APAP 5-325MG 1 EACH TAB PO PRN ×3 (07:14→20:39)
[2021-06-15] MEDS: HEPARIN SODIUM,PORCINE/PF 5,000 UNIT/0.5 ML SYRINGE SQ SCH ×2 (07:19→20:40)
[2021-06-15 07:58] LABS: Basophils % (A) 0 %; Eosinophils % (A) 0 %; HGB 11.7 gm/dL (13.0-17.5); Lymphocytes # (A) 0.7 k/uL (1.0-4.8); Lymphocytes % (A) 7 %; MCH 32.9 pg (25.0-35.0); MCHC 34.5 g/dL (31.0-37.0); MCV 95.5 fL (80.0-100.0); Mean Platelet Volume 8.2; Monocytes # (A) 0.7 k/uL (0-1.0); Monocytes % (A) 7 %; Neutrophils # (A) 8.4 k/uL (1.3-7.7); Neutrophils % (A) 84 %; RBC 3.56 m/uL (4.30-5.90); RDW 13.6 % (11.5-15.5)
[2021-06-15 07:59] LABS: ALT 16 U/L (4-49); AST 19 U/L (17-59); African American GFR (CKD) >90 (>60 ml/min/1.73 sqM); Albumin 2.4 g/dL (3.5-5.0); Alkaline Phosphatase 57 U/L (38-126); Amylase 131 U/L (30-110); Anion Gap 5 mmol/L; Blood Urea Nitrogen 4 mg/dL (9-20); Calcium 7.7 mg/dL (8.4-10.2); Carbon Dioxide 18 mmol/L (22-30); Chloride 107 mmol/L (98-107); Glucose 91 mg/dL (74-99); Lipase 870 U/L (23-300); Non-African American GFR(CKD) >90 (>60 ml/min/1.73 sqM); Potassium 3.3 mmol/L (3.5-5.1); Sodium 130 mmol/L (137-145); Total Bilirubin 0.6 mg/dL (0.2-1.3); Total Protein 4.8 g/dL (6.3-8.2)
[2021-06-15 08:00] LABS: Platelet Count 108 k/uL (150-450)
[2021-06-15] MEDS: PANTOPRAZOLE 40 MG/10 ML VIAL IVP SCH ×2 (09:02→20:39)
[2021-06-15] MEDS: acetaZOLAMIDE 250 MG TAB PO SCH ×2 (09:03→20:39)
[2021-06-15] MEDS: LORazepam 1 MG TAB PO PRN (12:06)
--- NOTE | 2021-06-15 18:08 | PN ---
PROGRESS NOTE DATE OF SERVICE: 06/15/2021. This 40-year-old gentleman who was admitted with acute alcohol withdrawal and delirium tremens also had acute pancreatitis. The patient is slightly better. He still complains of abdominal pain. No chest pain. No palpitations. Patient is on CIWA protocol. PHYSICAL EXAMINATION: Alert and oriented x3. Pulse 102, blood pressure 119/63, respirations 16, temperature is 99.3, pulse ox 98% on room air. HEENT: Conjunctivae normal. NECK: No jugular venous distention. CARDIOVASCULAR: S1, S2 muffled. RESPIRATION: Breath sounds diminished at the bases. A few scattered rhonchi and crackles. ABDOMEN: Soft. Minimal diffuse tenderness. No guarding. No rigidity. No mass palpable. LEGS: No edema. No swelling. NERVOUS SYSTEM: No focal deficit. LABS: WBC 10, hemoglobin 10.2. Sodium n potassium 3.3. ASSESSMENT: 1. Acute delirium tremens with acute alcohol withdrawal syndrome. 2. Acute pancreatitis with possible sepsis, present on admission. 3. Hyponatremia. 4. Hypokalemia. 5. Acute metabolic acidosis. 6. Increased white count. 7. History of pseudotumor cerebri. 8. Change in mental status, acute metabolic encephalopathy, multifactorial. 9. History of anxiety, depression. 10.History of nicotine dependence. 11.History of THC. RECOMMENDATIONS AND DISCUSSION: I recommend to continue current medications, continue with symptomatic treatment. Otherwise, supplement potassium. I would also recommend adding clonidine to the current regimen. Closely monitor. Patient is on empiric Merrem. Symptomatic treatment. Prognosis guarded. Further recommendations to follow. MMODL / IJN: [id number] / [facility]ALS[facility]
[2021-06-16] MEDS ORDERED: Potassium Replacement Protocol 1 EACH MISC MISCELLANE PRN (00:47)
[2021-06-16] MEDS: HYDROcodone/APAP 5-325MG 1 EACH TAB PO PRN ×4 (02:34→21:08)
[2021-06-16] MEDS: HYDROmorphone 0.5 MG/0.5 ML SYRINGE IVP PRN ×3 (04:15→17:39)
[2021-06-16] MEDS: 0.9% NACL WITH KCL 20 MEQ/L 1,000 ML with THIAMINE 100 MG, FOLIC ACID 1 MG IV SCH ×6 (05:26→07:46)
[2021-06-16 07:27] LABS: Basophils % (A) 0 %; Eosinophils % (A) 0 %; HCT 34.6 % (39.0-53.0); HGB 11.5 gm/dL (13.0-17.5); Lymphocytes # (A) 0.7 k/uL (1.0-4.8); Lymphocytes % (A) 8 %; MCH 32.2 pg (25.0-35.0); MCHC 33.3 g/dL (31.0-37.0); MCV 96.9 fL (80.0-100.0); Mean Platelet Volume 7.3; Monocytes % (A) 11 %; Neutrophils % (A) 77 %; RBC 3.57 m/uL (4.30-5.90)
[2021-06-16 07:39] LABS: ALT 20 U/L (4-49); AST 26 U/L (17-59); African American GFR (CKD) >90 (>60 ml/min/1.73 sqM); Albumin 2.8 g/dL (3.5-5.0); Alkaline Phosphatase 62 U/L (38-126); Amylase 140 U/L (30-110); Anion Gap 8 mmol/L; Blood Urea Nitrogen 3 mg/dL (9-20); Calcium 8.1 mg/dL (8.4-10.2); Carbon Dioxide 18 mmol/L (22-30); Chloride 107 mmol/L (98-107); Glucose 97 mg/dL (74-99); Lipase 818 U/L (23-300); Non-African American GFR(CKD) >90 (>60 ml/min/1.73 sqM); Potassium 3.9 mmol/L (3.5-5.1); Sodium 133 mmol/L (137-145); Total Bilirubin 0.6 mg/dL (0.2-1.3); Total Protein 5.4 g/dL (6.3-8.2)
[2021-06-16] MEDS: HEPARIN SODIUM,PORCINE/PF 5,000 UNIT/0.5 ML SYRINGE SQ SCH ×2 (07:45→21:07)
[2021-06-16] MEDS: LORazepam 1 MG TAB PO PRN ×2 (07:45→19:49)
[2021-06-16] MEDS: acetaZOLAMIDE 250 MG TAB PO SCH ×2 (07:46→21:07)
[2021-06-16] MEDS: PANTOPRAZOLE 40 MG/10 ML VIAL IVP SCH ×2 (07:46→21:07)
[2021-06-16] MEDS: MEROPENEM 2 GM in SODIUM CHLORIDE 0.9% 100 ML IVPB SCH ×2 (07:46→15:01)
[2021-06-16 07:50] LABS: Platelet Count 177 k/uL (150-450)
--- NOTE | 2021-06-16 17:34 | PN ---
PROGRESS NOTE DATE OF SERVICE: 06/16/2021 This 40-year-old gentleman who was admitted with acute delirium tremens with acute alcohol withdrawal seizures also had features of acute pancreatitis. Patient complains of some abdominal discomfort. Amylase and lipase have improved significantly to 140 and 818 at this time. No chest pain. No palpitations. No fever. Abdominal and pelvis CT scan is noted. PHYSICAL EXAMINATION: Alert and oriented x3. Pulse is 104, blood pressure 124/73, respiration 17, temperature 98 degrees, pulse ox 100% on room air. HEENT: Conjunctivae normal. NECK: No jugular venous distention. CARDIOVASCULAR: S1, S2 muffled. RESPIRATION: Breath sounds diminished at the bases. ABDOMEN: Soft. Mild diffuse distention and mild diffuse tenderness also present. No guarding. No rigidity. No mass palpable. LEGS: No edema. No swelling. NERVOUS SYSTEM: No focal deficit. LABS: WBC 9, hemoglobin 11.5. LFTs are noted. ASSESSMENT: 1. Acute delirium tremens with acute alcohol withdrawal syndrome. 2. Acute pancreatitis with possible sepsis, present on admission. 3. Hyponatremia. 4. Hypokalemia. 5. Acute metabolic acidosis. 6. Increased white count. 7. History of pseudotumor cerebri. 8. Change in mental status, acute metabolic encephalopathy, multifactorial. 9. History of anxiety, depression. 10.History of nicotine dependence. 11.History of THC. RECOMMENDATIONS AND DISCUSSION: I recommend to continue current medications, continue with symptomatic treatment. Advance the diet. Otherwise, repeat labs in the morning. Regarding the alcohol rehab, the patient and the patient's fiancee communicated to me that the patient was at [facility] only for "detox purpose, not really for rehab." The patient is going to do the rehab on his own apparently with some help with AA meetings. In any case, the prognosis is guarded. Discussed at length with the patient and the fiancee about the options, and they will follow up closely with the primary physician, Dr. Jo-Ann Barnett. MMJANETL / CARSONN: [id number] /
[2021-06-17] MEDS: 0.9% NACL WITH KCL 20 MEQ/L 1,000 ML with THIAMINE 100 MG, FOLIC ACID 1 MG IV SCH ×3 (00:15)
[2021-06-17] MEDS: HYDROmorphone 0.5 MG/0.5 ML SYRINGE IVP PRN ×2 (00:15→06:00)
[2021-06-17] MEDS: MEROPENEM 2 GM in SODIUM CHLORIDE 0.9% 100 ML IVPB SCH ×2 (00:16→08:11)
[2021-06-17 01:46] VITALS: RESP 18
[2021-06-17] MEDS: HYDROcodone/APAP 5-325MG 1 EACH TAB PO PRN ×2 (03:02→09:08)
[2021-06-17 04:28] LABS: Basophils % (A) 0 %; Eosinophils % (A) 0 %; HCT 33.4 % (39.0-53.0); HGB 11.3 gm/dL (13.0-17.5); Lymphocytes # (A) 0.9 k/uL (1.0-4.8); Lymphocytes % (A) 10 %; MCH 32.3 pg (25.0-35.0); MCHC 33.7 g/dL (31.0-37.0); MCV 95.9 fL (80.0-100.0); Mean Platelet Volume 7.3; Monocytes # (A) 1.2 k/uL (0-1.0); Monocytes % (A) 13 %; Neutrophils % (A) 74 %; Platelet Count 251 k/uL (150-450); RBC 3.48 m/uL (4.30-5.90); RDW 13.1 % (11.5-15.5); WBC 9.5 k/uL (3.8-10.6)
[2021-06-17 04:29] LABS: ALT 26 U/L (4-49); AST 34 U/L (17-59); African American GFR (CKD) >90 (>60 ml/min/1.73 sqM); Albumin 2.7 g/dL (3.5-5.0); Alkaline Phosphatase 65 U/L (38-126); Amylase 128 U/L (30-110); Anion Gap 6 mmol/L; Blood Urea Nitrogen 2 mg/dL (9-20); Calcium 8.4 mg/dL (8.4-10.2); Carbon Dioxide 20 mmol/L (22-30); Chloride 108 mmol/L (98-107); Glucose 104 mg/dL (74-99); Lipase 725 U/L (23-300); Magnesium 2.1 mg/dL (1.6-2.3); Non-African American GFR(CKD) >90 (>60 ml/min/1.73 sqM); Potassium 3.8 mmol/L (3.5-5.1); Sodium 134 mmol/L (137-145); Total Bilirubin 0.4 mg/dL (0.2-1.3); Total Protein 5.4 g/dL (6.3-8.2)
[2021-06-17 07:39] VITALS: BP 127/81; PULSE 105; TEMP 99.2
[2021-06-17] MEDS: acetaZOLAMIDE 250 MG TAB PO SCH (08:11)
[2021-06-17] MEDS: PANTOPRAZOLE 40 MG/10 ML VIAL IVP SCH (08:11)
[2021-06-17] MEDS: HEPARIN SODIUM,PORCINE/PF 5,000 UNIT/0.5 ML SYRINGE SQ SCH (08:17)
[2021-06-17] MEDS: LORazepam 1 MG TAB PO PRN (12:16)
--- NOTE | 2021-06-18 10:26 | DS ---
DISCHARGE SUMMARY DATE OF SERVICE: 06/17/2021 FINAL DIAGNOSES: 1. Acute delirium tremens and acute alcohol withdrawal syndrome. 2. Acute pancreatitis with possible sepsis, present on admission. 3. Hyponatremia. 4. Hypokalemia. 5. Acute metabolic acidosis. 6. Increased WBC. 7. History of pseudotumor cerebri. 8. History of change in mental status acute metabolic encephalopathy multifactorial. 9. History of anxiety, depression. 10.History of nicotine dependence. 11.History of THC. DISCHARGE DISPOSITION: The patient will be discharged in stable condition with guarded prognosis. HISTORY OF PRESENT ILLNESS: This 40-year-old gentleman with a past medical history of multiple medical problems admitted with features of acute delirium tremens and multiple other complications. Patient is sent from [facility]. The patient apparently was admitted to [facility] only for detox and the patient wanted to do the rehab part by himself and after several discussions, outpatient followup is recommended. EXAM: Vitals signs stable. Cardiovascular: S1, S2 muffled. Abdomen soft. Nervous system: No focal deficits. DISCHARGE INSTRUCTIONS: 1. Discharge diet is cardiac diet. 2. Activity limited until followup. 3. Follow up with Dr. Jo-Ann Barnett in 2-3 days. 4. Follow up with [facility] and psych as mentioned earlier. 5. Follow up with AA. 6. No alcohol. 7. Diamox 250 mg p.o. b.i.d. 8. Flexeril 5 mg q.h.s. p.r.n. 9. Folic acid 1 mg p.o. daily. 10.Multivitamins one p.o. daily. 11.[place] 5 mg q.6h p.r.n. 12.Multivitamins/Thiamin 100 mg p.o. daily. Once again, the patient will be discharged in stable condition with guarded prognosis. MMODL / IJN: [id number] /
== END 2021-06-17 13:53 | disposition home or self-care (01) | DRG 871 ==
LOC: EC 17:54 → 5NMEDONC 21:41 → 1SOBS 06-14 00:58
PROVIDERS: ADMIT Hospitalist; ATTEND Hospitalist
PROC: HZ2ZZZZ Detoxification Services for Substance Abuse Treatment (ICD-10-PCS; principal; 2021-06-13)
DX: A41.9 Sepsis, unspecified organism (principal); K85.90 Acute pancreatitis without necrosis or infection, unspecified; G93.41 Metabolic encephalopathy; F10.231 Alcohol dependence with withdrawal delirium; E87.1 Hypo-osmolality and hyponatremia; E87.2 Acidosis; J98.11 Atelectasis; E87.6 Hypokalemia; Z20.822 Contact with and (suspected) exposure to COVID-19; R56.9 Unspecified convulsions; E87.8 Other disorders of electrolyte and fluid balance, not elsewhere classified; R74.8 Abnormal levels of other serum enzymes; G93.2 Benign intracranial hypertension; F41.9 Anxiety disorder, unspecified; F32.9 Major depressive disorder, single episode, unspecified; M47.9 Spondylosis, unspecified; G89.29 Other chronic pain; M54.2 Cervicalgia; Z79.899 Other long term (current) drug therapy; Z87.891 Personal history of nicotine dependence; Z91.02 Food additives allergy status; X58.XXXA Exposure to other specified factors, initial encounter
CPT/HCPCS: 36415; 71046; 71275; 72125; 74177; 80053; 80320; 81001; 82150; 83690; 83735; 84484; 85025; 85379; 85610; 85730; 87040; 87086; 87635; 93005; 96361; 96374; 96375; 99285

== ENCOUNTER 2021-07-02 22:18 | Emergency (ER) | payer BC ==
[2021-07-02 22:38] VITALS: BP 149/99; PULSE 127; RESP 20; TEMP 98.1
[2021-07-02] MEDS ORDERED: HYDROmorphone 1 MG/ML 1 ML SYRINGE IVP STA (23:05)
[2021-07-02] MEDS ORDERED: SODIUM CHLORIDE 0.9% 500 ML 500 ML IV STA (23:05)
[2021-07-02] MEDS ORDERED: SODIUM CHLORIDE 0.9% 1,000 ML IV STA (23:05)
[2021-07-02] MEDS ORDERED: ONDANSETRON 4 MG/2 ML VIAL IVP STA (23:05)
[2021-07-02 23:22] LABS: Appearance,Urine Clear (Clear); Bilirubin,Urine Negative (Negative); Blood,Urine Negative (Negative); Color,Urine Light Yellow; Glucose,Urine (UA) Negative (Negative); Ketones,Urine Negative (Negative); Leukocyte Esterase,Urine Negative (Negative); Nitrite,Urine Negative (Negative); Protein,Urine Negative (Negative); Specific Gravity,Urine 1.004 (1.001-1.035); Urobilinogen,Urine <2.0 mg/dL (<2.0)
[2021-07-02 23:23] LABS: Basophils # (A) 0.1 k/uL (0-0.2); Basophils % (A) 1 %; Eosinophils # (A) 0.1 k/uL (0-0.7); Eosinophils % (A) 1 %; HCT 37.2 % (39.0-53.0); HGB 11.9 gm/dL (13.0-17.5); Lymphocytes # (A) 2.5 k/uL (1.0-4.8); Lymphocytes % (A) 24 %; MCH 30.8 pg (25.0-35.0); MCHC 32.1 g/dL (31.0-37.0); MCV 95.8 fL (80.0-100.0); Mean Platelet Volume 6.9; Monocytes # (A) 0.5 k/uL (0-1.0); Monocytes % (A) 5 %; Neutrophils # (A) 6.9 k/uL (1.3-7.7); Neutrophils % (A) 68 %; Platelet Count 451 k/uL (150-450); RBC 3.88 m/uL (4.30-5.90); RDW 13.6 % (11.5-15.5); WBC 10.2 k/uL (3.8-10.6)
[2021-07-02 23:36] LABS: ALT 16 U/L (4-49); AST 23 U/L (17-59); African American GFR (CKD) >90 (>60 ml/min/1.73 sqM); Albumin 4.4 g/dL (3.5-5.0); Alkaline Phosphatase 47 U/L (38-126); Anion Gap 11 mmol/L; Blood Urea Nitrogen 4 mg/dL (9-20); Calcium 9.4 mg/dL (8.4-10.2); Carbon Dioxide 26 mmol/L (22-30); Chloride 100 mmol/L (98-107); Glucose 111 mg/dL (74-99); Lipase 158 U/L (23-300); Non-African American GFR(CKD) >90 (>60 ml/min/1.73 sqM); Potassium 3.9 mmol/L (3.5-5.1); Sodium 137 mmol/L (137-145); Total Bilirubin 0.4 mg/dL (0.2-1.3); Total Protein 7.4 g/dL (6.3-8.2)
[2021-07-03] MEDS ORDERED: ACET/COD 300 MG/30 MG STARTER PACK 6 TAB BTL PO STA (00:14)
[2021-07-03] MEDS ORDERED: HYDROmorphone 1 MG/ML 1 ML SYRINGE IVP STA (00:14)
[2021-07-03] MEDS ORDERED: ONDANSETRON 4 MG ODT STARTER PACK 2 TAB BTL PO STA (00:14)
--- NOTE | 2021-07-03 00:14 | ED ---
Abdominal Pain HPI - General Chief Complaint: Abdominal Pain Stated Complaint: Vomiting Time Seen by Provider: 07/02/21 22:39 Source: patient Mode of arrival: ambulatory Limitations: no limitations - History of Present Illness Initial Comments: 40-year-old male patient presents the emergency department today for evaluation of upper abdominal pain and vomiting for the last 2 days. States he is unable to keep down food or fluids. States he was recently hospitalized for pancreatitis and his symptoms feel similar though maybe a little worse. States he has tried to stop eating but is not helping his symptoms. States he took Tylenol without relief. Denies fever or chills. Denies any constipation or diarrhea. Denies any urinary symptoms. Patient does have past history of alcohol abuse, last drink was one month ago. Denies any street drugs. Patient denies any recent rash, cough, shortness of breath, chest pain, back pain, numbness, tingling, dizziness, weakness, hematuria, dysuria, urinary urgency, urinary frequency, headache, visual changes, or any other complaints. - Related Data Home Medications Medication Instructions Recorded Confirmed Cyclobenzaprine [Flexeril] 5 mg PO HS PRN 06/13/21 07/02/21 acetaZOLAMIDE [Diamox] 250 mg PO BID 06/13/21 07/02/21 Omeprazole 20 mg PO DAILY 07/02/21 07/02/21 hydrOXYzine HCL [Atarax] 25 mg PO HS 07/02/21 07/02/21 Previous Rx's Medication Instructions Recorded Folic Acid 1 mg PO DAILY #30 tablet 06/17/21 Multivitamins, Thera [Multivitamin] 1 tab PO DAILY #30 tablet 06/17/21 Thiamine [Vitamin B-1] 100 mg PO DAILY #30 tablet 06/17/21 Ondansetron [Zofran ODT] 4 mg PO Q8HR PRN #20 tab 07/03/21 Allergies Allergy/AdvReac Type Severity Reaction Status Date / Time pineapple Allergy Unknown Verified 07/02/21 22:38 Review of Systems ROS Statement: Those systems with pertinent positive or pertinent negative responses have been documented in the HPI. ROS Other: All systems not noted in ROS Statement are negative. Past Medical History Past Medical History: No Reported History Additional Past Medical History / Comment(s): psuedotumor,pancreatitis with abdominal pain-n/v, pain back of head, neck pain and 3 buldging disc History of Any Multi-Drug Resistant Organisms: None Reported Past Surgical History: Tonsillectomy Past Anesthesia/Blood Transfusion Reactions: No Reported Reaction Past Psychological History: Anxiety, Depression Smoking Status: Current every day smoker Past Alcohol Use History: None Reported Past Drug Use History: Marijuana General Exam Limitations: no limitations General appearance: alert, in no apparent distress, other (This is a well- developed, well-nourished adult male patient in no acute distress.) Eye exam: Present: normal appearance, PERRL, EOMI. Absent: scleral icterus, conjunctival injection, periorbital swelling ENT exam: Present: normal exam, normal oropharynx, mucous membranes moist Respiratory exam: Present: normal lung sounds bilaterally. Absent: respiratory distress, wheezes, rales, rhonchi, stridor Cardiovascular Exam: Present: normal rhythm, tachycardia, normal heart sounds. Absent: systolic murmur, diastolic murmur, rubs, gallop, clicks GI/Abdominal exam: Present: soft, tenderness (Midepigastric, left upper quadrant, left lower quadrant), normal bowel sounds. Absent: distended, guarding, rebound, rigid Neurological exam: Present: alert, oriented X3, CN II-XII intact Psychiatric exam: Present: normal affect, normal mood Skin exam: Present: warm, dry, intact, normal color. Absent: rash Course Vital Signs 07/02/21 22:34 Temperature 98.1 F Pulse Rate 127 H Respiratory 20 Rate Blood Pressure 149/99 O2 Sat by Pulse 98 Oximetry Medical Decision Making - Medical Decision Making 40-year-old male patient presented to the emergency department today for evaluation of upper abdominal pain and vomiting. Physical examination did reveal midepigastric, left upper quadrant, left lower quadrant abdominal tenderness. Labs reviewed and revealed normal white blood cell count, normal liver function, normal lipase. Urinalysis is negative for any infection or hematuria. I did discuss findings results with him. We did discuss swelling clear liquid diet for the next 24 hours. He is given medication for nausea and vomiting. He'll be discharged follow up with his primary care physician and GI specialist. Return parameters were discussed in detail. He verbalizes understanding and agrees with this plan. Case discussed with my attending Dr. Fletcher. - Lab Data Result diagrams: 07/02/21 23:07 07/02/21 23:07 Lab Results 07/02/21 07/02/21 07/02/21 Range/Units 23:07 23:07 23:07 WBC 10.2 (3.8-10.6) k/uL RBC 3.88 L (4.30-5.90) m/uL Hgb 11.9 L (13.0-17.5) gm/dL Hct 37.2 L (39.0-53.0) % MCV 95.8 (80.0-100.0) fL MCH 30.8 (25.0-35.0) pg MCHC 32.1 (31.0-37.0) g/dL RDW 13.6 (11.5-15.5) % Plt Count 451 H (150-450) k/uL MPV 6.9 Neutrophils % 68 % Lymphocytes % 24 % Monocytes % 5 % Eosinophils % 1 % Basophils % 1 % Neutrophils # 6.9 (1.3-7.7) k/uL Lymphocytes # 2.5 (1.0-4.8) k/uL Monocytes # 0.5 (0-1.0) k/uL Eosinophils # 0.1 (0-0.7) k/uL Basophils # 0.1 (0-0.2) k/uL Sodium 137 (137-145) mmol/L Potassium 3.9 (3.5-5.1) mmol/L Chloride 100 (98-107) mmol/L Carbon Dioxide 26 (22-30) mmol/L Anion Gap 11 mmol/L BUN 4 L (9-20) mg/dL Creatinine 0.58 L (0.66-1.25) mg/dL Est GFR (CKD-EPI)AfAm >90 (>60 ml/min/1.73 sqM) Est GFR (CKD-EPI)NonAf >90 (>60 ml/min/1.73 sqM) Glucose 111 H (74-99) mg/dL Plasma Lactic Acid [place] (0.7-2.0) mmol/L Calcium 9.4 (8.4-10.2) mg/dL Total Bilirubin 0.4 (0.2-1.3) mg/dL AST 23 (17-59) U/L ALT 16 (4-49) U/L Alkaline Phosphatase 47 (38-126) U/L Total Protein 7.4 (6.3-8.2) g/dL Albumin 4.4 (3.5-5.0) g/dL Lipase 158 (23-300) U/L Urine Color Light Yellow Urine Appearance Clear (Clear) Urine pH 6.0 (5.0-8.0) Ur Specific [place] 1.004 (1.001-1.035) Urine Protein Negative (Negative) Urine Glucose (UA) Negative (Negative) Urine Ketones Negative (Negative) Urine Blood Negative (Negative) Urine Nitrite Negative (Negative) Urine Bilirubin Negative (Negative) Urine Urobilinogen <2.0 (<2.0) mg/dL Ur Leukocyte Esterase Negative (Negative) 07/02/21 Range/Units 23:07 WBC (3.8-10.6) k/uL RBC (4.30-5.90) m/uL Hgb (13.0-17.5) gm/dL Hct (39.0-53.0) % MCV (80.0-100.0) fL MCH (25.0-35.0) pg MCHC (31.0-37.0) g/dL RDW (11.5-15.5) % Plt Count (150-450) k/uL MPV Neutrophils % % Lymphocytes % % Monocytes % % Eosinophils % % Basophils % % Neutrophils # (1.3-7.7) k/uL Lymphocytes # (1.0-4.8) k/uL Monocytes # (0-1.0) k/uL Eosinophils # (0-0.7) k/uL Basophils # (0-0.2) k/uL Sodium (137-145) mmol/L Potassium (3.5-5.1) mmol/L Chloride (98-107) mmol/L Carbon Dioxide (22-30) mmol/L Anion Gap mmol/L BUN (9-20) mg/dL Creatinine (0.66-1.25) mg/dL Est GFR (CKD-EPI)AfAm (>60 ml/min/1.73 sqM) Est GFR (CKD-EPI)NonAf (>60 ml/min/1.73 sqM) Glucose (74-99) mg/dL Plasma Lactic Acid [place] 1.1 (0.7-2.0) mmol/L Calcium (8.4-10.2) mg/dL Total Bilirubin (0.2-1.3) mg/dL AST (17-59) U/L ALT (4-49) U/L Alkaline Phosphatase (38-126) U/L Total Protein (6.3-8.2) g/dL Albumin (3.5-5.0) g/dL Lipase (23-300) U/L Urine Color Urine Appearance (Clear) Urine pH (5.0-8.0) Ur Specific [place] (1.001-1.035) Urine Protein (Negative) Urine Glucose (UA) (Negative) Urine Ketones (Negative) Urine Blood (Negative) Urine Nitrite (Negative) Urine Bilirubin (Negative) Urine Urobilinogen (<2.0) mg/dL Ur Leukocyte Esterase (Negative) Disposition Clinical Impression: Vomiting, Abdominal pain Disposition: HOME SELF-CARE Condition: Good Instructions (If sedation given, give patient instructions): Acute Nausea and Vomiting (ED), Abdominal Pain (ED) Additional Instructions: Do clear liquid diet for at least the next 24 hours. Take medications as directed. Follow up with the primary care physician for recheck in 1-2 days. Return for any new, worsening, or concerning symptoms. Prescriptions: Ondansetron [Zofran ODT] 4 mg PO Q8HR PRN #20 tab PRN Reason: Nausea Is patient prescribed a controlled substance at d/c from ED?: No Referrals: Jo-Ann Barnett MD [Primary Care Provider] - 1-2 days Time of Disposition: 00:14
== END 2021-07-03 00:47 | disposition home or self-care (01) ==
LOC: EC 22:18
DX: R10.12 Left upper quadrant pain (principal); R11.10 Vomiting, unspecified; F41.9 Anxiety disorder, unspecified; F32.9 Major depressive disorder, single episode, unspecified; F17.200 Nicotine dependence, unspecified, uncomplicated; F12.90 Cannabis use, unspecified, uncomplicated; Z90.89 Acquired absence of other organs; Z87.19 Personal history of other diseases of the digestive system
CPT/HCPCS: 99284; 96374; 96375; 96376; 96361; 36415; 80053; 83605; 83690; 85025; 81003; J2405; J1170 ×2; S0119

== ENCOUNTER → 2021-07-08 | Outpatient (CLI) | payer BC ==
[2021-07-08 11:23] VITALS: BP 118/77; PULSE 87; RESP 18
--- NOTE | 2021-07-08 12:00 | P.PAINCN ---
History of Present Illness - Reason for Consult Consult date: 07/08/21 - Chief Complaint Head Ache - History of Present Illness Antony is a 40-year-old male presented to clinic today for initial evaluation of headaches. He has been diagnosed with idiopathic intracranial hypertension. He was referred to our clinic by Dr. Joanna Mckeon for bilateral occipital nerve blocks. He reports that his headaches have increased in frequency, duration and severity over time. This began in the back of the neck to the back of his head to the front of his skull. This is been going on for about 4 years now. He describes it as a sharp stabbing sensation gives him blurred vision and difficulty walking. Pain is aggravated with changes in weather, heat, and lights. Pain is better with Tylenol, and ice packs. He is scheduled to begin physical therapy this month. He has not had any massage therapy or career development counselor for this. She rates his pain as a 4 or 5 out of 10 however can be up to 10 out of 10 at a 0-10 pain scale. Past Medical History Past Medical History: No Reported History Additional Past Medical History / Comment(s): psuedotumor,pancreatitis with abdominal pain-n/v, pain back of head, neck pain and 3 buldging disc History of Any Multi-Drug Resistant Organisms: None Reported Past Surgical History: Tonsillectomy Past Anesthesia/Blood Transfusion Reactions: No Reported Reaction Past Psychological History: Anxiety, Depression Smoking Status: Current every day smoker Past Alcohol Use History: None Reported Additional Past Alcohol Use History / Comment(s): "recovering alcoholic" Past Drug Use History: Marijuana Additional Drug Use History / Comment(s): cbd Medications and Allergies Home Medications Medication Instructions Recorded Confirmed Type Cyclobenzaprine [Flexeril] 5 mg PO HS PRN 06/13/21 07/08/21 History acetaZOLAMIDE [Diamox] 250 mg PO BID 06/13/21 07/08/21 History Folic Acid 1 mg PO DAILY #30 tablet 06/17/21 07/08/21 Rx Multivitamins, Thera [Multivitamin] 1 tab PO DAILY #30 tablet 06/17/21 07/08/21 Rx Thiamine [Vitamin B-1] 100 mg PO DAILY #30 tablet 06/17/21 07/08/21 Rx Omeprazole 20 mg PO DAILY 07/02/21 07/08/21 History hydrOXYzine HCL [Atarax] 25 mg PO HS 07/02/21 07/08/21 History Ondansetron [Zofran ODT] 4 mg PO Q8HR PRN #20 tab 07/03/21 07/08/21 Rx Allergies Allergy/AdvReac Type Severity Reaction Status Date / Time pineapple Allergy Unknown Verified 07/08/21 11:36 Physical Exam REVIEW OF ORGAN SYSTEMS: CONSTITUTIONAL: No fevers or chills. No recent weight loss. EYES: denies troubles with vision. HEENT: No difficulties with hearing. No nosebleeds. No difficulty swallowing. RESPIRATORY: Denies any troubles with breathing or dyspnea on exertion. CARDIOVASCULAR: Denies any chest pain, palpitations, or recent heart attacks. GASTROINTESTINAL: Denies fatty food intolerance. Has change in bowel habits and gas bloat. GENITOURINARY: Denies any blood in urine. Has increased urinary frequency. NEUROLOGICAL: (-) numbness and tingling along the distal extremities. No seizure disorders. headaches. MUSCULOSKELETAL: Has neck pain. SKIN:no skin cancer. No rash. PSYCHIATRIC: Denies current depression or suicidal thoughts. ENDOCRINE: Denies current thyroid disorders. Denies any blood sugar glucose intolerance. HEME/LYMPHATIC: Denies any lumps and bumps around the neck. History of deep venous thrombosis. ALLERGY/IMMUNOLOGY: No immunoglobulin therapy. No immune deficiencies. BREAST: Denies current breast lumps, pain or nipple discharge. Physical Examinations : Constitutiona : Cooperative , not in acute distress . HEENT : nech : supple , no Lymphadenopathy , normal thyroid size . : eyes no ptosis , no icterus, no photophobia . : ENT normal of hearing , normal oropharynx , no Thrush . Respiratory : Chest clear to auscultations Bilaterally , no wheezing , no Rhonchi . Cardiovascula : regular rate and rhythem , S1 , S2 , no S3 , no S4. Gastrointestina : abdomen soft no tenderness , bowel sounds , no organomegally . Genitourinary : Defferred . neurologic : Cranial nerve II to XII intact , no focal neurological deffecit . psychatric : alert , oriented X 3 , appropriate affect , intact judgment and insight . Lymphatic : no Lymphadenopathy . musculoskeltal : Cervical Spine motor stregnth in the deltoid and biceps, normal right side , normal Left side motor stregnth biceps and the wrist extensors normal right side ,normal left side . motor stregnth in the triceps muscle . normal Right side , normal Left side deep tendon reflexes= normal at the biceps , normal at Brachioradialis , normal at triceps. cervical facet loading test: Positive Bilaterally Spurling test= positive bilaterally. Neck distraction test= positive bilaterally. Clarissa sign= negative Results CT Scan - head: report reviewed MRI - head: report reviewed Assessment and Plan Assessment: Assessment and plan= Assessment: Bilateral occipital neuralgia Idiopathic intracranial hypertension Plan: Patient could benefit from bilateral occipital nerve blocks up to 2 After completion of nerve blocks referred back to Dr. Joanna Mckeon Diagnoses, prognosis, treatment options, including but not limited to physical therapy, medication management, interventional therapies, and surgery, were discussed with the patient All the questions answered The narcotic consent was not signed. MAPS Reviwed and it was apropriate . Medication managements= I spent extensive time with the patient and review of his records. Medications seem to be offering good relief. There is no signs of any misuse or diversion. I have spent 50 minutes on patient care today. The time was used to review the medical records including relevant urine studies and Prescription history (MAPs), review of the available imaging, evaluation and examination of the patient, coordination of care with the medical staff and if applicable referring physicians, as well as creation of the medical record. Maps were checked and appropriate, opioid start talking form is on file and updated, urine drug screens of been appropriate and have been reviewed. - PQRS measures = - Patient's medications are documented in the chart. -Tobacco use is positive/negative and counseling.Given. -Patient's has not received pneumococcal vaccine. -Advanced care planning discussed, patient not eligible. -Opiate contract signed. -Pain positive and follow-up visit/procedure is scheduled. -Patient's blood pressure measured [ ] , and documented in the record ,and patient will follow up with the primary care. -Patient's weight was measured and body mass index [ ] above the,within the normal limits and counseling was done. and patient instructed to follow-up with the primary care physician. -Patient was not identified as an unhealthy alcohol user Time with Patient: Greater than 30 PQRS Measure Charge Sheet - Pain Location Occipital Non-Pharmacological Interventions: Darkened Room, Ice, Inactivity, Position/Reposition, Reduce Environmental Stimuli Pharmacological Interventions: PRN Medication PQRS Narrative: Smoking Status Current every day smoker Pain Intensity [Occipital] 2 Scale Used Numeric (1 - 10) Home Medications: Ambulatory Orders Cyclobenzaprine [Flexeril] 5 mg PO HS PRN 06/13/21 acetaZOLAMIDE [Diamox] 250 mg PO BID 06/13/21 Folic Acid 1 mg PO DAILY #30 tablet 06/17/21 Multivitamins, Thera [Multivitamin] 1 tab PO DAILY #30 tablet 06/17/21 Thiamine [Vitamin B-1] 100 mg PO DAILY #30 tablet 06/17/21 Omeprazole 20 mg PO DAILY 07/02/21 hydrOXYzine HCL [Atarax] 25 mg PO HS 07/02/21 Ondansetron [Zofran ODT] 4 mg PO Q8HR PRN #20 tab 07/03/21
== END ==
LOC: PNWHC3 10:48
PROVIDERS: ATTEND Student in an Organized Health Care Education/Training Program
DX: M54.81 Occipital neuralgia (principal); G93.2 Benign intracranial hypertension; F17.200 Nicotine dependence, unspecified, uncomplicated; F41.9 Anxiety disorder, unspecified; F32.9 Major depressive disorder, single episode, unspecified; Z91.018 Allergy to other foods
CPT/HCPCS: 99211

== ENCOUNTER → 2022-01-20 | Outpatient (CLI) | payer BC ==
--- NOTE | 2022-01-20 10:21 | CT ---
EXAMINATION TYPE: CT brain wo con DATE OF EXAM: 01/20/2022 COMPARISON: MRI brain March 17, 2021 HISTORY: Pseudotumor cerebri CT DLP: 1222 mGycm. Automated Exposure Control for Dose Reduction was Utilized. TECHNIQUE: CT scan of the head is performed without contrast. FINDINGS: There is no acute intracranial hemorrhage, mass effect, or midline shift identified. The ventricles and sulci remain within normal limits in size. Ventricular size unchanged from prior MRI. No cerebellar tonsillar herniation. Suprasellar cistern is maintained. The globes are intact and the visualized sinuses are clear. IMPRESSION: Unremarkable study. No significant change from prior MRI.
== END | disposition home or self-care (01) ==
LOC: RADCTMAIN 09:27
PROVIDERS: ATTEND Psychiatry & Neurology Neurology
DX: G93.2 Benign intracranial hypertension (principal)
CPT/HCPCS: 70450

== ENCOUNTER 2022-01-24 18:17 | Inpatient (IN) | payer BC, OTHER ==
[2022-01-24 20:02] LABS: Glucose,Whole Blood 109 mg/dL (75-99)
[2022-01-24] MEDS ORDERED: SODIUM CHLORIDE 0.9% 1,000 ML IV STA (20:34)
--- NOTE | 2022-01-24 20:36 | ED ---
General Adult HPI - General Chief complaint: Syncope Stated complaint: vision issues/felling like passing out Time Seen by Provider: 01/24/22 20:13 Source: patient Mode of arrival: wheelchair Limitations: no limitations - History of Present Illness Initial comments: Antony is a 41yo M with a past medical history of pseudotumor cerebri for which she is following with the surgeon out of [facility] in [place]. The patient presents to the emergency Department today reporting that 8 days ago he hit the back of his head at work, he began to feel dizzy and had to have a significant other. Michael. He states that since that time he sat headache and nausea and today had 2 syncopal episodes. Patient denies chest pain or shortness of breath. Complains of headache. Patient's significant other reports she feels he appears jaundiced and that he h as been drinking daily for 2 weeks. Patient does have a history of alcohol abuse. - Related Data Home Medications Medication Instructions Recorded Confirmed Cyclobenzaprine [Flexeril] 5 mg PO HS PRN 06/13/21 01/24/22 acetaZOLAMIDE [Diamox] 250 mg PO BID 06/13/21 01/24/22 Gabapentin [Neurontin] 100 mg PO BID 01/24/22 01/24/22 Allergies Allergy/AdvReac Type Severity Reaction Status Date / Time pineapple Allergy Unknown Verified 01/24/22 21:54 Review of Systems ROS Statement: Those systems with pertinent positive or pertinent negative responses have been documented in the HPI. ROS Other: All systems not noted in ROS Statement are negative. Past Medical History Past Medical History: No Reported History Additional Past Medical History / Comment(s): psuedotumor,pancreatitis with abdo mickie pain-n/v, pain back of head, neck pain and 3 buldging disc History of Any Multi-Drug Resistant Organisms: None Reported Past Surgical History: Tonsillectomy Past Anesthesia/Blood Transfusion Reactions: No Reported Reaction Past Psychological History: Anxiety, Depression Smoking Status: Current every day smoker Past Alcohol Use History: Abuse, Daily, Heavy Past Drug Use History: Marijuana General Exam - General Exam Comments Initial Comments: Physical Exam GENERAL: Patient is well-developed and well-nourished. Patient is nontoxic and well-hydrated and is in no distress. HENT: Normocephalic, Atraumatic. EYES: PERRL, EOMI Mild scleral icterus PULMONARY: Unlabored respirations. No audible rales rhonchi or wheezing was noted. CARDIOVASCULAR: There is a regular rate and rhythm without any murmurs gallops or rubs. ABDOMEN: Soft and nontender with normal bowel sounds. SKIN: Skin is clear with no lesions or rashes and otherwise unremarkable. : Deferred NEUROLOGIC: Patient is alert and oriented x3. Moving all extremities spontaneously MUSCULOSKELETAL: Normal extremities with adequate strength and full range of motion. No lower extremity swelling or edema. No calf tenderness. PSYCHIATRIC: Normal psychiatric evaluation. Limitations: no limitations Course Vital Signs 01/24/22 01/24/22 01/24/22 18:35 20:17 21:42 Temperature 98.9 F Pulse Rate 104 H 92 88 Respiratory 16 18 Rate Blood Pressure 111/68 129/74 117/71 O2 Sat by Pulse 94 L 98 99 Oximetry EKG Findings - EKG Comments: EKG Findings:: EKG was obtained due to complaint of syncope, EKG was obtained at 1841, rate is 93 rhythm is sinus I'll access normal intervals, IL 142 ROS 82 QTc [address] elevations or depressions no evidence of ischemia or infarction. Medical Decision Making - Medical Decision Making The patient was seen and evaluated, history is obtained from patient and significant other at bedside, patient with headache decreased oral intake and according to significant other binge drinking Patient's labs are consistent with his alcohol abuse, patient has transaminitis, hyponatremia, hypokalemia Head CT is unremarkable, patient will be admitted for electrolyte abnormalities dehydration, I'll call withdrawal protocol was ordered, patient's headache was treated with Toradol Benadryl Admission plan was discussed with nurse practitioner Michelle from the [facility] hospitalist group who accepts the admission. - Lab Data Result diagrams: 01/24/22 20:38 01/24/22 20:38 Lab Results 01/24/22 01/24/22 01/24/22 Range/Units 20:01 20:38 20:38 WBC 12.5 H (3.8-10.6) k/uL RBC 4.37 (4.30-5.90) m/uL Hgb 14.5 (13.0-17.5) gm/dL Hct 43.4 (39.0-53.0) % MCV 99.3 (80.0-100.0) fL MCH 33.1 (25.0-35.0) pg MCHC 33.3 (31.0-37.0) g/dL RDW 13.9 (11.5-15.5) % Plt Count 103 L (150-450) k/uL MPV 8.9 Neutrophils % 92 % Lymphocytes % 4 % Monocytes % 3 % Eosinophils % 0 % Basophils % 0 % Neutrophils # 11.5 H (1.3-7.7) k/uL Lymphocytes # 0.4 L (1.0-4.8) k/uL Monocytes # 0.4 (0-1.0) k/uL Eosinophils # 0.0 (0-0.7) k/uL Basophils # 0.0 (0-0.2) k/uL PT 9.9 (9.0-12.0) sec INR 0.9 (<1.2) APTT 30.7 H (22.0-30.0) sec Sodium (137-145) mmol/L Potassium (3.5-5.1) mmol/L Chloride (98-107) mmol/L Carbon Dioxide (22-30) mmol/L Anion Gap mmol/L BUN (9-20) mg/dL Creatinine (0.66-1.25) mg/dL Est GFR (CKD-EPI)AfAm (>60 ml/min/1.73 sqM) Est GFR (CKD-EPI)NonAf (>60 ml/min/1.73 sqM) Glucose (74-99) mg/dL POC Glucose (mg/dL) 109 H (75-99) mg/dL POC Glu Lead Php Developer ID Meir Frausto Calcium (8.4-10.2) mg/dL Magnesium (1.6-2.3) mg/dL Total Bilirubin (0.2-1.3) mg/dL AST (17-59) U/L ALT (4-49) U/L Alkaline Phosphatase (38-126) U/L Ammonia (<30) umol/L Troponin I (0.000-0.034) ng/mL Total Protein (6.3-8.2) g/dL Albumin (3.5-5.0) g/dL 01/24/22 01/24/22 01/24/22 Range/Units 20:38 20:38 20:43 WBC (3.8-10.6) k/uL RBC (4.30-5.90) m/uL Hgb (13.0-17.5) gm/dL Hct (39.0-53.0) % MCV (80.0-100.0) fL MCH (25.0-35.0) pg MCHC (31.0-37.0) g/dL RDW (11.5-15.5) % Plt Count (150-450) k/uL MPV Neutrophils % % Lymphocytes % % Monocytes % % Eosinophils % % Basophils % % Neutrophils # (1.3-7.7) k/uL Lymphocytes # (1.0-4.8) k/uL Monocytes # (0-1.0) k/uL Eosinophils # (0-0.7) k/uL Basophils # (0-0.2) k/uL PT (9.0-12.0) sec INR (<1.2) APTT (22.0-30.0) sec Sodium 129 L (137-145) mmol/L Potassium 3.3 L (3.5-5.1) mmol/L Chloride 90 L (98-107) mmol/L Carbon Dioxide 26 (22-30) mmol/L Anion Gap 13 mmol/L BUN 10 (9-20) mg/dL Creatinine 0.92 (0.66-1.25) mg/dL Est GFR (CKD-EPI)AfAm >90 (>60 ml/min/1.73 sqM) Est GFR (CKD-EPI)NonAf >90 (>60 ml/min/1.73 sqM) Glucose 109 H (74-99) mg/dL POC Glucose (mg/dL) (75-99) mg/dL POC Glu Lead Php Developer ID Calcium 9.2 (8.4-10.2) mg/dL Magnesium 2.6 H (1.6-2.3) mg/dL Total Bilirubin 1.9 H (0.2-1.3) mg/dL AST 239 H (17-59) U/L ALT 206 H (4-49) U/L Alkaline Phosphatase 90 (38-126) U/L Ammonia <9 (<30) umol/L Troponin I 0.012 (0.000-0.034) ng/mL Total Protein 8.1 (6.3-8.2) g/dL Albumin 5.1 H (3.5-5.0) g/dL Disposition Clinical Impression: Hypokalemia, History of alcohol abuse, Hyponatremia, Transaminitis Disposition: ADMITTED IP TO THIS HOSP Condition: Stable Referrals: Jo-Ann Barnett MD [Primary Care Provider] - 1-2 days
[2022-01-24 21:00] LABS: Basophils % (A) 0 %; Eosinophils % (A) 0 %; HCT 43.4 % (39.0-53.0); HGB 14.5 gm/dL (13.0-17.5); Lymphocytes # (A) 0.4 k/uL (1.0-4.8); Lymphocytes % (A) 4 %; MCH 33.1 pg (25.0-35.0); MCHC 33.3 g/dL (31.0-37.0); MCV 99.3 fL (80.0-100.0); Mean Platelet Volume 8.9; Monocytes # (A) 0.4 k/uL (0-1.0); Monocytes % (A) 3 %; Neutrophils # (A) 11.5 k/uL (1.3-7.7); Neutrophils % (A) 92 %; Platelet Count 103 k/uL (150-450); RBC 4.37 m/uL (4.30-5.90); RDW 13.9 % (11.5-15.5); WBC 12.5 k/uL (3.8-10.6)
[2022-01-24 21:18] LABS: ALT 206 U/L (4-49); AST 239 U/L (17-59); African American GFR (CKD) >90 (>60 ml/min/1.73 sqM); Albumin 5.1 g/dL (3.5-5.0); Alkaline Phosphatase 90 U/L (38-126); Anion Gap 13 mmol/L; Blood Urea Nitrogen 10 mg/dL (9-20); Calcium 9.2 mg/dL (8.4-10.2); Carbon Dioxide 26 mmol/L (22-30); Chloride 90 mmol/L (98-107); Glucose 109 mg/dL (74-99); Magnesium 2.6 mg/dL (1.6-2.3); Non-African American GFR(CKD) >90 (>60 ml/min/1.73 sqM); Potassium 3.3 mmol/L (3.5-5.1); Sodium 129 mmol/L (137-145); Total Bilirubin 1.9 mg/dL (0.2-1.3); Total Protein 8.1 g/dL (6.3-8.2)
--- NOTE | 2022-01-24 21:26 | CT ---
EXAMINATION TYPE: CT brain wo con DATE OF EXAM: 01/24/2022 COMPARISON: 01/20/2022 HISTORY: Syncope. CT DLP: 1094.4 mGycm. Automated Exposure Control for Dose Reduction was Utilized. TECHNIQUE: CT scan of the head is performed without contrast. FINDINGS: There is no acute intracranial hemorrhage, mass effect, or midline shift identified. The ventricles and sulci are within normal limits in size. The globes are intact and the visualized sin uses are clear. IMPRESSION: No acute intracranial hemorrhage, mass effect, or midline shift is seen.
--- NOTE | 2022-01-24 21:27 | XR ---
EXAMINATION TYPE: XR chest 2V DATE OF EXAM: 01/24/2022 COMPARISON: 06/13/2021 HISTORY: Syncope TECHNIQUE: Frontal and lateral views of the chest are obtained. FINDINGS: There is no focal air space opacity, pleural effusion, or pneumothorax seen. The cardiac silhouette size is within normal limits. The osseous structures are intact. IMPRESSION: No acute cardiopulmonary process.
[2022-01-24 21:35] LABS: INR 0.9 (<1.2); Partial Thromboplastin Time 30.7 sec (22.0-30.0); Prothrombin Time 9.9 sec (9.0-12.0)
[2022-01-24] MEDS ORDERED: diphenhydrAMINE 50 MG/ML 1 ML VIAL IVP STA (22:12)
[2022-01-24] MEDS ORDERED: KETOROLAC 15 MG/ML 1 ML VIAL IVP STA (22:12)
[2022-01-24] MEDS ORDERED: POTASSIUM CHLORIDE ER 20 MEQ TAB.ER PO STA (22:12)
[2022-01-24] MEDS ORDERED: ONDANSETRON 4 MG/2 ML VIAL IVP STA (22:12)
[2022-01-24] MEDS ORDERED: LORazepam 2 MG/ML INJ IV PRN ×3 (22:13)
[2022-01-24 22:17] LABS: Amorphous Sediment,Urine Moderate /hpf; Appearance,Urine Cloudy (Clear); Bilirubin,Urine Negative (Negative); Blood,Urine Negative (Negative); Color,Urine Yellow; Glucose,Urine (UA) Negative (Negative); Hyaline Casts,Urine 5 /lpf (0-2); Ketones,Urine 2+ (Negative); Leukocyte Esterase,Urine Negative (Negative); Nitrite,Urine Negative (Negative); PH, Urine 8.5 (5.0-8.0); Protein,Urine 1+ (Negative); RBC,Urine 1 /hpf (0-5); Specific Gravity,Urine 1.011 (1.001-1.035); Urobilinogen,Urine <2.0 mg/dL (<2.0); WBC,Urine 1 /hpf (0-5)
[2022-01-24] MEDS: THIAMINE 100 MG TAB PO SCH (22:23)
[2022-01-24] MEDS ORDERED: levETIRAcetam IV 1,000 MG in SALINE 1 100ML.BAG IVPB STA (23:18)
[2022-01-25] MEDS ORDERED: DIAZEPAM 5 MG/ML 2 ML INJ IVP STA (01:16)
[2022-01-25] MEDS ORDERED: ONDANSETRON 4 MG/2 ML VIAL IVP PRN (01:16)
[2022-01-25] MEDS ORDERED: NALOXONE 0.4 MG/ML 1 ML VIAL IV PRN (01:16)
[2022-01-25] MEDS ORDERED: MORPHINE SULFATE 4 MG/ML SYRINGE IV PRN (01:16)
[2022-01-25] MEDS: DIAZEPAM 5 MG/ML 2 ML INJ IVP SCH ×2 (01:34→16:00)
[2022-01-25] MEDS: THIAMINE 100 MG TAB PO SCH ×2 (07:43→17:27)
[2022-01-25] MEDS ORDERED: POTASSIUM CHLORIDE ER 20 MEQ TAB.ER PO STA (10:11)
[2022-01-25] MEDS ORDERED: CYCLOBENZAPRINE 5 MG TAB PO PRN (10:20)
--- NOTE | 2022-01-25 10:21 | P.HPIM ---
History of Present Illness Patient is a pleasant 41-year-old male came in with complaints of severe headache and radiating pain to the back of the head and through seizures yesterday morning and 1 seizure in the ER details of the seizure were not clear, 1 was witnessed by his 1 was witnessed by the nursing staff although details are not available patient denied any loss of bowel or bladder continence. It appears patient had a postictal phase denied any tongue biting, as per the nursing staff patient had a grand mal seizure further details are not available at this time. Patient denied any fever chills. Patient is an alcoholic use to drink 1 pint of alcohol per day which he started drinking about 5 days ago as per the patient patient has been mostly bedbound because of his severe pain for last few days in the head.. Patient had a CT of the head which did not show any hematoma or any bleed. Patient is bit jaundiced with mildly elevated liver enzymes and serum sodium being low at 129. Patient has C3-C4 vertebral disease for which patient is scheduled for surgery at [facility] was [place]. Patient had a history of seizures last seizure was when he was 21 years old and he was told it's at all call withdrawal seizure patient is presently not on any antiseizure medications was given a dose of Keppra in ER last night and patient is on Ativan for alcohol withdrawals. he is still complaining of headache. Patient has significant generalized weakness but no focal weakness REVIEW OF SYSTEMS: CONSTITUTIONAL: No fever, no malaise, no fatigue. HEENT: No recent visual problems or hearing problems. Denied any sore throat. CARDIOVASCULAR: No chest pain, orthopnea, PND, no palpitations, no syncope. PULMONARY: No shortness of breath, no cough, no hemoptysis. GASTROINTESTINAL: No diarrhea, no nausea, no vomiting, no abdominal pain. NEUROLOGICAL: no numbness. HEMATOLOGICAL: Denies any bleeding or petechiae. GENITOURINARY: Denies any burning micturition, frequency, or urgency. MUSCULOSKELETAL/RHEUMATOLOGICAL: Denies any joint pain, swelling, or any muscle pain. ENDOCRINE: Denies any polyuria or polydipsia. The rest of the 14-point review of systems is negative. PHYSICAL EXAMINATION: GENERAL: The patient is alert and oriented x3, not in any acute distress. Well developed, well nourished. HEENT: Pupils are round and equally reacting to light. EOMI. mild scleral icterus. No conjunctival pallor. Normocephalic, atraumatic. No pharyngeal erythema. No thyromegaly. CARDIOVASCULAR: S1 and S2 present. No murmurs, rubs, or gallops. PULMONARY: Chest is clear to auscultation, no wheezing or crackles. ABDOMEN: Soft, nontender, nondistended, normoactive bowel sounds. No palpable organomegaly. MUSCULOSKELETAL: No joint swelling or deformity. EXTREMITIES: No cyanosis, clubbing, or pedal edema. NEUROLOGICAL: Gross neurological examination did not reveal any focal deficits but does have significant generalized weakness in all 4 extremities. SKIN: No rashes. Assessment and plan -Seizures probably all call withdrawal seizures, continue with the Ativan CIWA protocol, neurology will be consulted, and EEG will be obtained. 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: Patient was started on antiplatelet medications and [place] as needed for pain morphine will be discontinued -Alcohol abuse: Counseling was provided -Alcohol withdrawal -Acute alcoholic hepatitis -Hyponatremia hypovolemic hyponatremia from alcoholism: Patient was started on IV fluids -Mild metabolic alkalosis: Probably due to acetazolamide -Leukocytosis reactive secondary to possible seizure -History of pseudotumor cerebri for which patient is on acetazolamide DVT prophylaxis: Lovenox Past Medical History Past Medical History: No Reported History Additional Past Medical History / Comment(s): psuedotumor,pancreatitis with abdominal pain-n/v, pain back of head, neck pain and 3 buldging disc History of Any Multi-Drug Resistant Organisms: None Reported Past Surgical History: Tonsillectomy Past Anesthesia/Blood Transfusion Reactions: No Reported Reaction Past Psychological History: Anxiety, Depression Smoking Status: Current every day smoker Past Alcohol Use History: Abuse, Daily, Heavy Past Drug Use History: Marijuana Medications and Allergies Home Medications Medication Instructions Recorded Confirmed Type Cyclobenzaprine [Flexeril] 5 mg PO HS PRN 06/13/21 01/24/22 History acetaZOLAMIDE [Diamox] 250 mg PO BID 06/13/21 01/24/22 History Gabapentin [Neurontin] 100 mg PO BID 01/24/22 01/24/22 History Allergies Allergy/AdvReac Type Severity Reaction Status Date / Time pineapple Allergy Unknown Verified 05/22/22 21:54 Physical Exam Vitals: Vital Signs Temp Pulse Resp BP Pulse Ox 01/25/22 06:15 98.7 F 96 18 115/73 97 01/25/22 02:28 90 18 95/64 93 L 01/25/22 01:37 101 H 18 99 01/25/22 00:37 97 18 91/49 93 L 01/24/22 23:35 112 H 20 120/74 96 01/24/22 23:19 121 H 24 115/69 100 01/24/22 21:42 88 18 117/71 99 01/24/22 20:17 92 129/74 98 01/24/22 18:35 98.9 F 104 H 16 111/68 94 L Intake and Output 01/24/22 01/25/22 01/25/22 22:59 06:59 14:59 Other: Weight 81.647 kg Results CBC & Chem 7: 01/24/22 20:38 01/24/22 20:38 Labs: Abnormal Lab Results - Last 24 Hours (Table) 01/24/22 01/24/22 01/24/22 Range/Units 20:01 20:38 20:38 WBC 12.5 H (3.8-10.6) k/uL Plt Count 103 L (150-450) k/uL Neutrophils # 11.5 H (1.3-7.7) k/uL Lymphocytes # 0.4 L (1.0-4.8) k/uL APTT 30.7 H (22.0-30.0) sec Sodium (137-145) mmol/L Potassium (3.5-5.1) mmol/L Chloride (98-107) mmol/L Glucose (74-99) mg/dL POC Glucose (mg/dL) 109 H (75-99) mg/dL Magnesium (1.6-2.3) mg/dL Total Bilirubin (0.2-1.3) mg/dL AST (17-59) U/L ALT (4-49) U/L Albumin (3.5-5.0) g/dL Urine pH (5.0-8.0) Urine Protein (Negative) Urine Ketones (Negative) Amorphous Sediment (None) /hpf Hyaline Casts (0-2) /lpf 01/24/22 01/24/22 Range/Units 20:38 21:42 WBC (3.8-10.6) k/uL Plt Count (150-450) k/uL Neutrophils # (1.3-7.7) k/uL Lymphocytes # (1.0-4.8) k/uL APTT (22.0-30.0) sec Sodium 129 L (137-145) mmol/L Potassium 3.3 L (3.5-5.1) mmol/L Chloride 90 L (98-107) mmol/L Glucose 109 H (74-99) mg/dL POC Glucose (mg/dL) (75-99) mg/dL Magnesium 2.6 H (1.6-2.3) mg/dL Total Bilirubin 1.9 H (0.2-1.3) mg/dL AST 239 H (17-59) U/L ALT 206 H (4-49) U/L Albumin 5.1 H (3.5-5.0) g/dL Urine pH 8.5 H (5.0-8.0) Urine Protein 1+ H (Negative) Urine Ketones 2+ H (Negative) Amorphous Sediment Moderate H (None) /hpf Hyaline Casts 5 H (0-2) /lpf
[2022-01-25] MEDS: SODIUM CHLORIDE 0.9% 1,000 ML IV SCH ×2 (11:07→15:36)
[2022-01-25 11:21] LABS: Amphetamine Screen,Urine Not Detected (NotDetected); Barbiturate Screen,Urine Not Detected (NotDetected); Benzodiazepines Screen,Urine Detected (NotDetected); Cocaine Screen,Urine Not Detected (NotDetected); Methadone Screen, Urine Not Detected (NotDetected); Opiate Screen,Urine Detected (NotDetected); Oxycodone Screen, Urine Not Detected (NotDetected); Phencyclidine Screen,Urine Not Detected (NotDetected); Tricyclic Antidepressant,Urine Not Detected (NotDetected); Urn Cannabinoid Scrn Not Detected (NotDetected)
--- NOTE | 2022-01-25 11:38 | P.CNNES ---
History of Present Illness Consult date: 01/25/22 Requesting physician: Tejas Lopez Reason for Consult: seizure History of Present Illness: This is a 5-year-old gentleman with history of pseduotumor cerebri, alcohol use, tobacco use who presented emergency department on 01/24/2022 with a complaint of severe headache and seizure. According to the patient he was at work on 01/17/2022 and that he was coming off the high low and the felt dizzy and fell on the back of the head and the lot denies any loss of consciousness. Ever since the fall he's been having severe headache throughout the brain been constant, has photophobia, phonophobia, nausea denies any vomiting. He feels like his head is on fire. He also describes his headache as a pressure headache. Denies any visual disturbance or any focal weakness or numbness. As a result the headache he restart drinking but dated he was taking sips of alcohol of 1-2 since January 17. His last drink was on January 21 at. Yesterday in the morning patient had a seizure-like activity at home while he was in the bathroom he thinks and he stated that he is a is not aware of the seizure but the felt he kicked the garbage can in the bathroom but denies any urinary or bowel incontinence or tongue bite. He said that he lost memory during the episode that. Then he had a witnessed seizure-like activity by his later and he does not recall what transpired as a result they came to our facility. He has been having a dry cough for the last 1 week. Denies any fever. Denies any skin rash. Denies any sick contacts. According to the patient's had a a questionable seizure around 11 PM yesterday according to the nurse. She stated the patient had tremulous all the body and then he was briefly not responding an episode was short in duration but did not have urinary or bowel incontinence. No tongue bite. She stated that he is to drink alcohol heavily in the past but his last heavy alcohol use was about a year ago but he restarted drinking sips since the head trauma to relieve the pain other than that the he's not drinking heavily at. He stated that he had seizure episode many years ago one time due to alcohol withdrawal. He does have history of pseudotumor cerebri diagnosed 1 year ago and had lumbar puncture. He does follow-up with neurologist (does not recall name) and Opthamologist (Dr. Pretty). He is on Acetazolamide 250mg 1 tab bid. Some of the workup in the hospital consisted of: Initial vital signs his blood pressure of 111/68, heart rate of 104, respiratory of 16, temperature of 98.9 oral, pulse ox of 94% at room air. White blood cell is 12.5 thousand, platelet is 103 and slightly neutrophilic. Sodium is 129, potassium 3.3, magnesium is 2.6, total bilirubin is 1.9, AST of 239 and ALT of 206. Ammonia level is less than 9. CT of the head is reported as no acute intracranial hemorrhage, mass effect or midline shift is seen. Personally reviewed the CT of the head there is no acute or subacute ischemia and there is no intraparenchymal hemorrhage. Review of Systems Review of system: The 12 point system was reviewed and apparent positive and negative per HPI. Past Medical History Past Medical History: No Reported History Additional Past Medical History / Comment(s): psuedotumor,pancreatitis with abdominal pain-n/v, pain back of head, neck pain and 3 buldging disc History of Any Multi-Drug Resistant Organisms: None Reported Past Surgical History: Tonsillectomy Past Anesthesia/Blood Transfusion Reactions: No Reported Reaction Past Psychological History: Anxiety, Depression Smoking Status: Current every day smoker Past Alcohol Use History: Abuse, Daily, Heavy Past Drug Use History: Marijuana Medications and Allergies Home Medications Medication Instructions Recorded Confirmed Type Cyclobenzaprine [Flexeril] 5 mg PO HS PRN 06/13/21 01/24/22 History acetaZOLAMIDE [Diamox] 250 mg PO BID 06/13/21 01/24/22 History Gabapentin [Neurontin] 100 mg PO BID 01/24/22 01/24/22 History Allergies Allergy/AdvReac Type Severity Reaction Status Date / Time pineapple Allergy Unknown Verified 01/24/22 21:54 Physical Examination - Vital Signs Vital Signs: Vital Signs Temp Pulse Resp BP Pulse Ox 01/25/22 06:15 98.7 F 96 18 115/73 97 01/25/22 02:28 90 18 95/64 93 L 01/25/22 01:37 101 H 18 99 01/25/22 00:37 97 18 91/49 93 L 01/24/22 23:35 112 H 20 120/74 96 01/24/22 23:19 121 H 24 115/69 100 01/24/22 21:42 88 18 117/71 99 01/24/22 20:17 92 129/74 98 01/24/22 18:35 98.9 F 104 H 16 111/68 94 L Intake and Output 01/24/22 01/25/22 01/25/22 22:59 06:59 14:59 Other: Weight 81.647 kg GENERAL: The patient is lying in bed and is in mild acute distress. CHEST: The heart rate is regular rate rhythm. No murmurs to auscultation. LUNG: Clear to auscultation bilaterally no wheezing noted throughout. Not labored breathing. ABDOMEN/GI: Bowel sounds present in all 4 quadrants. No tenderness to palpation throughout. NEUROLOGICAL: Higher mental function: The patient is awake, alert, oriented to self, place and time. Patient is following commands. No aphasia and no neglect. Cranial nerves: The pupils are round, equal and reactive to light and accommodation. Visual wagner are full to confrontation throughout. Extraocular movement is intact no nystagmus is noted. Facial sensation is normal to touch throughout. The facial strength is normal throughout. Hearing is normal bilat erally to hand rub. Tongue is midline and moved [id number] without any difficulty. No dysarthria is noted. Shoulder shrug is normal bilaterally. Motor: The strength is 4+ throughout (since felt he had diffuse pain). Normal tone and bulk. Cerebellum: Normal finger to nose heel to morley bilaterally. Sensation: Sensation is normal to touch throughout. Reflexes (right/left): 2+ throughout. Plantars are downgoing bilaterally. Results - Laboratory Findings CBC and BMP: 01/24/22 20:38 01/24/22 20:38 Abnormal Lab Findings: Abnormal Labs 01/24/22 01/24/22 01/24/22 20:01 20:38 20:38 WBC 12.5 H Plt Count 103 L Neutrophils # 11.5 H Lymphocytes # 0.4 L APTT 30.7 H Sodium Potassium Chloride Glucose POC Glucose (mg/dL) 109 H Magnesium Total Bilirubin AST ALT Albumin Urine pH Urine Protein Urine Ketones Amorphous Sediment Hyaline Casts 01/24/22 01/24/22 20:38 21:42 WBC Plt Count Neutrophils # Lymphocytes # APTT Sodium 129 L Potassium 3.3 L Chloride 90 L Glucose 109 H POC Glucose (mg/dL) Magnesium 2.6 H Total Bilirubin 1.9 H AST 239 H ALT 206 H Albumin 5.1 H Urine pH 8.5 H Urine Protein 1+ H Urine Ketones 2+ H Amorphous Sediment Moderate H Hyaline Casts 5 H Assessment and Plan Assessment: Recurrent seizure-like episodes with headaches (headaches since 01/17/2022). Rule out any intracranial process (mass or underlying infection. No fever but has leukocytosis(seems reactive)) vs uncontrolled pseudotumor cerebri. He denies heavy alcohol use for past one year and has been drinks sips of Alcohol since 01/17/2022 and last drink was 01/21/2022 Pseudotumor cerebri for past one year. History heavy alcohol use Plan: Ordered routine EEG. Patient was given keppra 1gm once in ED yesterday for suspected seizures. I started the patient on Keppra 500mg 1 tab every 12 hours since having recurrent seizure. Ordered MRI Brain and MRA head w/ and w/o for his headache and seizure. Ordered Lumbar puncture: to assess opening/closing pressure and evaluated routine CSF study. Continue neuro checks. Continue acetazolamide 250mg 1 tab bid. Ordered UDS, serum alcohol level, vitamin B12 and folate levels. Placed on seizure precaution and pads. Currently on Ativan for CIWA protocol. Continue thiamine 100mg bid daily. Will defer the rest of medical management to the primary team. The plan is discussed with patient and his nurse. Thank you for the consultation. Karl Hughes M.D. Neuro-Hospitalist Time with Patient: Greater than 30
[2022-01-25] MEDS: levETIRAcetam 500 MG TAB PO SCH ×2 (14:17→20:25)
[2022-01-25] MEDS: HYDROcodone/APAP 10-325MG 1 EACH TAB PO PRN ×2 (14:17→20:26)
[2022-01-25] MEDS: ENOXAPARIN 40 MG/0.4 ML SYRINGE SQ SCH (14:38)
--- NOTE | 2022-01-25 14:40 | EEG ---
ELECTROENCEPHALOGRAM REPORT DATE OF SERVICE: 01/25/2022. CLINICAL HISTORY: This is a 41-year-old gentleman who presented to the emergency department because of seizure-like activity that was recurrent. The video EEG is obtained to evaluate for seizure epileptiform activity. RELEVANT MEDICATION: Keppra and Ativan. EEG TYPE: A routine 21-channel EEG is performed with video using the 10/20 electrode system. DESCRIPTION: Awake state is obtained. During awake state the posterior-dominant rhythm consists of 8.5 to 9 hertz activity. There is no physiological stage II sleep architecture. There is no focal slowing. Interictal and ictal is none. ACTIVATION PROCEDURE: Photic stimulation did not evoke a posterior driving response. There is no abnormality during the photic stimulation. Hyperventilation was not performed. CLINICAL INTERPRETATION: This is a normal routine EEG. There is no focal slowing, epileptiform discharge or seizure on the EEG. Clinical correlation is recommended. SANJUANITA / FADI: [id number] / MTDD
[2022-01-25] MEDS: GABAPENTIN 100 MG CAP PO SCH ×2 (15:31→20:25)
[2022-01-25] MEDS: KETOROLAC 15 MG/ML 1 ML VIAL IVP PRN (17:27)
--- NOTE | 2022-01-25 19:21 | MR ---
EXAMINATION TYPE: MR brain wo/w con DATE OF EXAM: 01/25/2022 COMPARISON: 03/17/2021 HISTORY: seizure. worse headache. Rule out SAH. CONTRAST: Standard multiplanar, multisequence MRI departmental protocol images were obtained without contrast a nd with 8 mL intravenous Gadavist gadolinium contrast. Ventricles have normal size. There is no mass effect or midline shift. No sign of intracranial hemorr yadira. Diffusion images show no evidence of an acute infarct. Brainstem is intact. Corpus callosum is intact. No evidence of cerebral edema. The contrast images showed no pathologic enhancement. There is normal enhancement of the venous sinuses. Sella turcica appears normal. There is no evidence of orbi elsa mass. IMPRESSION: Normal MRI scan of the brain. No adverse change compared to old exam.
--- NOTE | 2022-01-25 19:23 | MR ---
EXAMINATION TYPE: MR angio head wo/w con DATE OF EXAM: 01/25/2022 COMPARISON: None HISTORY: seizure. worse headache. Rule out SAH. CONTRAST: Standard multiplanar, multisequence MRI departmental protocol images were obtained without contrast a nd with 8 mL intravenous Gadavist gadolinium contrast. There is arterial flow in the anterior middle and posterior cerebral arteries. There is arterial flow in the vertebrobasilar artery system. There is arterial flow in both distal vertebral arteries. Both distal internal carotid arteries appear normal. There is no mass effect. No evidence of intracranial aneurysm or neovascularity. No evidence of intracranial arterial stenosis. The left A1 segment of th e anterior cerebral artery is relatively small. This is probably developmental. There is probably tommy e filling through the anterior communicating artery. IMPRESSION: Negative MR angiogram of the brain. Small A1 segment of the left anterior cerebral artery is probably developmental.
[2022-01-25] MEDS: acetaZOLAMIDE 250 MG TAB PO SCH (20:25)
[2022-01-25] MEDS: FAMOTIDINE 20 MG TAB PO SCH (20:25)
[2022-01-26] MEDS: SODIUM CHLORIDE 0.9% 1,000 ML IV SCH ×3 (05:55→23:11)
[2022-01-26] MEDS: GABAPENTIN 100 MG CAP PO SCH ×3 (07:22→20:12)
[2022-01-26] MEDS: FAMOTIDINE 20 MG TAB PO SCH ×2 (07:22→20:11)
[2022-01-26] MEDS: acetaZOLAMIDE 250 MG TAB PO SCH ×2 (07:22→20:11)
[2022-01-26] MEDS: THIAMINE 100 MG TAB PO SCH ×2 (07:22→17:43)
[2022-01-26] MEDS: levETIRAcetam 500 MG TAB PO SCH (07:22)
[2022-01-26] MEDS: HYDROcodone/APAP 10-325MG 1 EACH TAB PO PRN ×3 (07:34→19:17)
[2022-01-26] MEDS ORDERED: IV FLUID CONTINUATION 1,000 ML IV ONE (09:16)
--- NOTE | 2022-01-26 10:02 | P.PCN ---
Date of Procedure: 01/26/22 Description of Procedure: Procedure: Lumbar Puncture . Preoperative Diagnoses: Idiopathic intracranial hypertension Postoperative Diagnosis: Idiopathic intracranial hypertension Anesthesia: IV sedation with Versed 2mg and 100mcg fentanyl with 5ml of lidocaine 1% Condition: stable. Complications: none. Description of the procedure: Patient was consented in the preoperative area we discussed the risks benefits and alternatives to the procedure. The patient was Brought the patient into the procedure room and she was placed in the left lateral decubitus position. The back was cleansed with chlorhexadine. L3-4 level was palpated, At that point lidocaine 1% was used to anesthetize the skin, total of 5 mL was used. A 22 gauge spinal needle was advanced until spinal fluid was aspirated through the needle and a three - way stop cock. Opening pressure was 25. 15ml of CSF was removed in total and left a closing pressure of 17. CSF was obtained and sent off to laboratory for examination. Band-Aid was placed after the procedure the patient was instructed to lay flat for the next few hours. The patient was discharged from the PACU in stable condition back to the floor. .
[2022-01-26] MEDS: LACTATED RINGERS 1,000 ML IV SCH ×2 (10:14→23:11)
[2022-01-26 10:21] LABS: Phosphorus 4.2 mg/dL (2.4-5.1)
[2022-01-26 10:22] LABS: Magnesium 2.5 mg/dL (1.5-2.4)
[2022-01-26 10:24] LABS: HGB 14.1 g/dL (13.0-17.0); MCH 32.6 pg (27.0-32.0); MCV 101.9 fL (80.0-97.0); Mean Platelet Volume 11.1 fL (9.5-12.2); NRBC Per 100 WBC 0 /100 WBCS (0.0-0.0); Platelet Count 84 X 10*3/uL (140-440); RBC 4.32 X 10*6/uL (4.40-5.60); RDW 14.2 % (11.5-14.5); WBC 8.72 X 10*3/uL (4.50-10.00)
[2022-01-26 10:42] LABS: Basophils # (A) 0.06 X 10*3/uL (0.00-0.10); Basophils % (A) 0.7 %; Eosinophils % (A) 1.1 %; Immature Grans, Automated 0.7 %; Lymphocytes # (A) 1.63 X 10*3/uL (0.90-5.00); Lymphocytes % (A) 18.7 %; Monocytes # (A) 0.62 X 10*3/uL (0.20-1.00); Monocytes % (A) 7.1 %; Neutrophils # (A) 6.25 X 10*3/uL (1.80-7.70); Neutrophils % (A) 71.7 %
[2022-01-26 10:48] LABS: African American GFR (CKD) 119.8 (60.0-200.0); Albumin 4.3 g/dL (3.8-4.9); Albumin/Globulin Ratio 1.66 (1.60-3.17); BUN/Creat Ratio 8.8 Ratio (12.00-20.00); Blood Urea Nitrogen 8.1 mg/dL (9.0-27.0); Calcium 9.2 mg/dL (8.7-10.3); Carbon Dioxide 18.6 mmol/L (20.0-27.5); Globulin 2.6 g/dL (1.6-3.3); Non-African American GFR(CKD) 103.4 (60.0-200.0); Potassium 3.9 mmol/L (3.5-5.5); Total Bilirubin 0.8 mg/dL (0.30-1.20); Total Protein 6.8 g/dL (6.2-8.2)
[2022-01-26 13:36] LABS: Glucose,CSF 76 mg/dL (40-70); Total Protein,CSF 88 mg/dL (12-60)
[2022-01-26 14:00] LABS: Appearance,CSF Clear; CSF Tube Number 4; CSF Tube Volume 2.5; Nucleated Cells, CSF 0 u/L (0-5); Red Blood Cell,CSF 1 u/L (0-10)
--- NOTE | 2022-01-26 14:15 | P.PN ---
Subjective Progress Note Date: 01/26/22 Patient is a pleasant 41-year-old male came in with complaints of severe headache and radiating pain to the back of the head and through seizures yesterday morning and 1 seizure in the ER details of the seizure were not clear, 1 was witnessed by his 1 was witnessed by the nursing staff although detail s are not available patient denied any loss of bowel or bladder continence. It appears patient had a postictal phase denied any tongue biting, as per the nursing staff patient had a grand mal seizure further details are not available at this time. Patient denied any fever chills. Patient is an alcoholic use to drink 1 pint of alcohol per day which he started drinking about 5 days ago as per the patient patient has been mostly bedbound because of his severe pain for last few days in the head.. Patient had a CT of the head which did not show any hematoma or any bleed. Patient is bit jaundiced with mildly elevated liver enzymes and serum sodium being low at 129. Patient has C3-C4 vertebral disease for which patient is scheduled for surgery at [facility] was [place]. Patient had a history of seizures last seizure was when he was 21 years old and he was told it's at all call withdrawal seizure patient is presently not on any antiseizure medications was given a dose of Keppra in ER last night and patient is on Ativan for alcohol withdrawals. he is still complaining of headache. Patient has significant generalized weakness but no focal weakness 01/26/2022 Patient evaluated today status post lumbar puncture. Opening pressure was found to be 25, and closing pressure 17. 15 mLs of fluid removed and sent for cytology. Earlier this morning headache rated a 9/10 however he states he has had some improvement after procedure. No seizure activity witnessed over the night. Labs today showing white count 8.72, platelets are 84, sodium has improved up to 142, potassium 3.9, mag 2.5, AST 173, ALT 177. Urine drug tox showing opiates and benzodiazepines. EEG negative for focal slowing, epileptiform discharge. MRI, MRA negative for acute stroke or hemorrhage. MRA showed a small A1 segment of the left anterior cerebral artery which is probably developmental per reports . Hemodynamically stable today. Pending further recommendations from neurology. Continue with pain management. Review of Systems Constitutional: Denied any fatigue denied any fever. Cardio vascular: denied any chest pain, palpitations Gastrointestinal: denied any nausea, vomiting, diarrhea Pulmonary: Denied any shortness of breath cough Neurologic denied any new focal deficits, Reports headache All inpatient medications were reviewed and appropriate changes in these medications as dictated in the interval history and assessment and plan. PHYSICAL EXAMINATION: GENERAL: The patient is alert and oriented x3, not in any acute distress. Well developed, well nourished. HEENT: Pupils are round and equally reacting to light. EOMI. mild scleral icterus. No conjunctival pallor. Normocephalic, atraumatic. No pharyngeal erythema. No thyromegaly. CARDIOVASCULAR: S1 and S2 present. No murmurs, rubs, or gallops. PULMONARY: Chest is clear to auscultation, no wheezing or crackles. ABDOMEN: Soft, nontender, nondistended, normoactive bowel sounds. No palpable organomegaly. MUSCULOSKELETAL: No joint swelling or deformity. EXTREMITIES: No cyanosis, clubbing, or pedal edema. NEUROLOGICAL: Gross neurological examination did not reveal any focal deficits but does have significant generalized weakness in all 4 extremities. SKIN: No rashes. Assessment and plan -Seizures like activity with headache, imaging negative for mass, stroke, no seizure activity found on EEG. Question for uncontrolled pseduotumor cerebri, underwent lumbar puncture today. -Recent trauma to the head without any evidence of bleeding -Cervical vertebral disease with a headache from radiculopathy: Continue on nor co and antiemetics for imani control -Alcohol abuse: Counseling was provided -Alcohol withdrawal continues on CIWA protocol, no evidence for acute alcohol withdrawal at this time -Acute alcoholic hepatitis liver enzymes are improving -Hyponatremia hypovolemic hyponatremia from alcoholism: Resolved with hydration, sodium now 142 -Mild metabolic alkalosis: Probably due to acetazolamide, resolving -Leukocytosis reactive secondary to possible seizure, resolved -History of pseudotumor cerebri for which patient is on acetazolamide -Thrombocytopenia, repeat platelet count tomorrow DVT prophylaxis: Lovenox GI prophylaxis: Pepcid Full Code Plan Follow up neurology Pain management for headache Repeat labs in AM Continue with seizure precautions The impression and plan of care has been dictated by Elisa Pinto, Nurse Practitioner as directed. Dr. Jessica MD I have performed a history and physical examination and medical decision making of this patient, discussed the same with the dictator, and agree with the dictators assessment and plan as written, documented as a scribe. Based on total visit time, I have performed more than 50% of this visit. Objective - Vital Signs Vital signs: Vital Signs Temp 97.8 F 01/26/22 09:19 Pulse 94 01/26/22 10:23 Resp 16 01/26/22 10:23 BP 111/75 01/26/22 10:23 Pulse Ox 99 01/26/22 10:23 FiO2 Intake & Output 01/25/22 01/26/22 01/26/22 18:59 06:59 18:59 Intake Total 1200 200 Balance 1200 200 Weight 81.647 kg Intake: IV 200 Intake, IV Titration 1200 Amount Sodium Chloride 0.9% 1, 1200 000 ml @ 100 mls/hr IV . Q10H [facility] Rx#:[id number] Other: Voiding Method Toilet Toilet Urinal Urinal # Voids 1 3 1 - Labs CBC & Chem 7: 01/26/22 05:37 01/26/22 05:37 Labs: Abnormal Lab Results - Last 24 Hours (Table) 01/25/22 01/26/22 01/26/22 Range/Units 11:13 05:37 05:37 RBC 4.32 L (4.40-5.60) X 10*6/uL MCV 101.9 H (80.0-97.0) fL MCH 32.6 H (27.0-32.0) pg Plt Count 84 L (140-440) X 10*3/uL Plt Count Comment DECREASED A Immature Gran # 0.06 H (0.00-0.04) X 10*3/uL Carbon Dioxide 18.6 L (20.0-27.5) mmol/L BUN 8.1 L (9.0-27.0) mg/dL BUN/Creatinine Ratio 8.80 L (12.00-20.00) Ratio Magnesium 2.5 H (1.5-2.4) mg/dL AST 173 H (14-35) U/L ALT 177 H (10-49) U/L Vitamin B12 1570.0 H (200.0-944.0) pg/mL Assessment and Plan Time with Patient: Less than 30
[2022-01-26] MEDS: KETOROLAC 15 MG/ML 1 ML VIAL IVP PRN (15:53)
--- NOTE | 2022-01-26 16:54 | P.PN ---
Subjective Progress Note Date: 01/26/22 The patient is seen at bedside and is accompanied by his significant other. No further seizures in our facility. He has been afebrile in our facility. It seems the patient was drinking frequents alcohol recently then last drink was on 01/22/2020 and was taking very frequents sips prior to that because of headaches. He has severe cervical spondylosis and in process of seeing a neurosurgeon out of [facility] and pending to have surgery in his neck. He is on Flexeril 5mg and does not feel helping. He is seeing Dr. Martinez for neurological management and is on Gabapentin 200mg tid. Objective - Vital Signs Vital signs: Vital Signs Temp 97.8 F 01/26/22 09:19 Pulse 94 01/26/22 10:23 Resp 16 01/26/22 10:23 BP 111/75 01/26/22 10:23 Pulse Ox 99 01/26/22 10:23 FiO2 Intake & Output 01/25/22 01/26/22 01/26/22 18:59 06:59 18:59 Intake Total 1200 200 Balance 1200 200 Weight 81.647 kg Intake: IV 200 Intake, IV Titration 1200 Amount Sodium Chloride 0.9% 1, 1200 000 ml @ 100 mls/hr IV . Q10H [facility] Rx#:[id number] Other: Voiding Method Toilet Toilet Urinal Urinal # Voids 1 3 1 - Exam GENERAL: The patient is lying in bed and is in mild acute distress. NEUROLOGICAL: Higher mental function: The patient is awake, alert, oriented to self, place and time. Patient is following commands. No aphasia and no neglect. Cranial nerves: The pupils are round, equal and reactive to light and accommodation. Visual wagner are full to confrontation throughout. Extraocular movement is intact no nystagmus is noted. Facial sensation is normal to touch throughout. The facial strength is normal throughout. Hearing is normal bilaterally to hand rub. Tongue is midline and moved [id number] without any difficulty. No dysarthria is noted. Shoulder shrug is normal bilaterally. Motor: The strength is 4+ throughout (since felt he had diffuse pain). Normal tone and bulk. Cerebellum: Normal finger to nose heel to morley bilaterally. Sensation: Sensation is normal to touch throughout. Reflexes (right/left): 2+ throughout. Plantars are downgoing bilaterally. SOME OF THE WORK-UP: Vitamin B12: 1570 Serum folate: 16.5 UDS: +ve for opiates and Benzo. Serum Alcohol <10. CSF: clear, colorless, 1 rbc, 0 nucleated cells, 76 glucose, 88 total protein. Opening pressure was 25. 15cc removed and closing pressure is 17. Routine EEG on 01/25/2022: Normal. MRI Brain w/ and w/o is reported as normal. MRA head is negative. Small A1 segment of the left anterior cerebral artery is probably developmental - Labs CBC & Chem 7: 01/26/22 05:37 01/26/22 05:37 Labs: Abnormal Lab Results - Last 24 Hours (Table) 01/25/22 01/26/22 01/26/22 Range/Units 11:13 05:37 05:37 RBC 4.32 L (4.40-5.60) X 10*6/uL MCV 101.9 H (80.0-97.0) fL MCH 32.6 H (27.0-32.0) pg Plt Count 84 L (140-440) X 10*3/uL Plt Count Comment DECREASED A Immature Gran # 0.06 H (0.00-0.04) X 10*3/uL Carbon Dioxide 18.6 L (20.0-27.5) mmol/L BUN 8.1 L (9.0-27.0) mg/dL BUN/Creatinine Ratio 8.80 L (12.00-20.00) Ratio Magnesium 2.5 H (1.5-2.4) mg/dL AST 173 H (14-35) U/L ALT 177 H (10-49) U/L Vitamin B12 1570.0 H (200.0-944.0) pg/mL CSF Glucose (40-70) mg/dL CSF Total Protein (12-60) mg/dL 01/26/22 Range/Units 09:54 RBC (4.40-5.60) X 10*6/uL MCV (80.0-97.0) fL MCH (27.0-32.0) pg Plt Count (140-440) X 10*3/uL Plt Count Comment Immature Gran # (0.00-0.04) X 10*3/uL Carbon Dioxide (20.0-27.5) mmol/L BUN (9.0-27.0) mg/dL BUN/Creatinine Ratio (12.00-20.00) Ratio Magnesium (1.5-2.4) mg/dL AST (14-35) U/L ALT (10-49) U/L Vitamin B12 (200.0-944.0) pg/mL CSF Glucose 76 H (40-70) mg/dL CSF Total Protein 88 H (12-60) mg/dL Microbiology - Last 24 Hours (Table) 01/26/22 09:54 CSF Gram Stain - Preliminary Cerebral Spinal Fluid CSF Culture - Preliminary Assessment and Plan Assessment: Seizure seems provoked due to alcohol withdrawal Cephalgia due to multifactorial: Pseudotumor cerebri and referred from neck pain Significant cervical spondylosis Pseudotumor cerebri for past one year. History heavy alcohol use Plan: -I stopped Keppra and started him on Topamax 50mg 1 tab bid which helps with headaches, helps with pseudotumor cerebri (since his opening pressure is 25cm H2O which is high normal) and acts as antiepileptic drugs. -Continue acetazolamide 250mg 1 tab bid. -his CSF protein is 88 (normal is 12-60) which is considered slightly high and possibly reactive and unsure if due to his seizures. Nucleated cells are norm al. Afebrile. -Started the patient Robaxin 500mg 1 tab bid (which can help with neck pain). Stopped Flexeril since not helping. -On Gabapentin 200mg 1 tab tid and down the line can go up to 300mg 1 tab tid if not helping. Pending to be seen by his neurosurgeon (at [facility]) for his significant c ervical spondylosis and likely surgery. Currently on Ativan for CIWA protocol. Continue thiamine 100mg bid daily. Will defer the rest of medical management to the primary team. Upon discharge, patient needs to follow-up with his neurologist (Dr. Martinez) and his neurosurgeon (over at [facility]). The plan is discussed with patient, his and his nurse There is no further neurological work-up and patient is clear from neurological perspective. Karl Hughes M.D. Neuro-Hospitalist Time with Patient: Less than 30
[2022-01-26] MEDS: methocarbamoL 500 MG TAB PO SCH (20:11)
[2022-01-26] MEDS: TOPIRAMATE 25 MG TAB PO SCH (20:11)
[2022-01-27 04:14] VITALS: RESP 16
[2022-01-27] MEDS: acetaZOLAMIDE 250 MG TAB PO SCH (07:46)
[2022-01-27] MEDS: FAMOTIDINE 20 MG TAB PO SCH (07:46)
[2022-01-27] MEDS: ENOXAPARIN 40 MG/0.4 ML SYRINGE SQ SCH (07:46)
[2022-01-27] MEDS: THIAMINE 100 MG TAB PO SCH (07:46)
[2022-01-27] MEDS: TOPIRAMATE 25 MG TAB PO SCH (07:47)
[2022-01-27] MEDS: GABAPENTIN 100 MG CAP PO SCH (07:47)
[2022-01-27] MEDS: methocarbamoL 500 MG TAB PO SCH (07:48)
[2022-01-27] MEDS: HYDROcodone/APAP 10-325MG 1 EACH TAB PO PRN (07:53)
[2022-01-27 10:21] LABS: African American GFR (CKD) 123.4 (60.0-200.0); Albumin 3.7 g/dL (3.8-4.9); Albumin/Globulin Ratio 1.76 (1.60-3.17); Anion Gap 8.4 mmol/L (10.00-18.00); BUN/Creat Ratio 9.33 Ratio (12.00-20.00); Blood Urea Nitrogen 8.4 mg/dL (9.0-27.0); Carbon Dioxide 22.6 mmol/L (20.0-27.5); Globulin 2.1 g/dL (1.6-3.3); Non-African American GFR(CKD) 106.5 (60.0-200.0); Potassium 4.3 mmol/L (3.5-5.5); Total Bilirubin 0.4 mg/dL (0.30-1.20); Total Protein 5.8 g/dL (6.2-8.2)
[2022-01-27 11:33] LABS: Basophils # (A) 0.03 X 10*3/uL (0.00-0.10); Basophils % (A) 0.5 %; Eosinophils % (A) 1.6 %; HCT 39.1 % (39.6-50.0); HGB 12.6 g/dL (13.0-17.0); Immature Grans, Automated 0.5 %; MCH 32.4 pg (27.0-32.0); MCHC 32.2 g/dL (32.0-37.0); MCV 100.5 fL (80.0-97.0); Mean Platelet Volume 10.5 fL (9.5-12.2); Monocytes # (A) 0.49 X 10*3/uL (0.20-1.00); Monocytes % (A) 7.7 %; NRBC Per 100 WBC 0 /100 WBCS (0.0-0.0); Neutrophils % (A) 67.7 %; Platelet Count 125 X 10*3/uL (140-440); RBC 3.89 X 10*6/uL (4.40-5.60); RDW 13.9 % (11.5-14.5); WBC 6.35 X 10*3/uL (4.50-10.00)
[2022-01-27 12:31] VITALS: BP 117/72; PULSE 96; TEMP 98.5
== END 2022-01-27 12:52 | disposition home or self-care (01) | DRG 101 ==
LOC: EC 18:17 → 4SSUR 01-25 01:17 → 5NMEDONC 01-25 08:26
PROVIDERS: ADMIT Hospitalist; ATTEND Hospitalist
PROC: HZ2ZZZZ Detoxification Services for Substance Abuse Treatment (ICD-10-PCS; 2022-01-25)
PROC: 4A10X4Z Monitoring of Central Nervous Electrical Activity, External Approach (ICD-10-PCS; 2022-01-25)
PROC: 009U3ZX Drainage of Spinal Canal, Percutaneous Approach, Diagnostic (ICD-10-PCS; principal; 2022-01-26 11:30)
DX: R56.9 Unspecified convulsions (principal); F10.239 Alcohol dependence with withdrawal, unspecified; E87.3 Alkalosis; E87.1 Hypo-osmolality and hyponatremia; M47.812 Spondylosis without myelopathy or radiculopathy, cervical region; K70.10 Alcoholic hepatitis without ascites; R74.01 Elevation of levels of liver transaminase levels; M50.10 Cervical disc disorder with radiculopathy, unspecified cervical region; G93.2 Benign intracranial hypertension; F41.9 Anxiety disorder, unspecified; F32.A Depression, unspecified; F17.210 Nicotine dependence, cigarettes, uncomplicated; E87.6 Hypokalemia; E86.1 Hypovolemia; D72.829 Elevated white blood cell count, unspecified; D69.6 Thrombocytopenia, unspecified; Z79.899 Other long term (current) drug therapy; Z87.828 Personal history of other (healed) physical injury and trauma; Z91.018 Allergy to other foods
CPT/HCPCS: 36415; 62270; 70450; 70546; 70553; 71046; 80053; 80306; 80320; 81001; 82140; 82164; 82607; 82746; 82945; 83735; 83873; 84100; 84157; 84484; 85025; 85610; 85730; 87070; 87205; 87252; 88108; 89050; 93005; 95816; 96361; 96374; 96375; 99285

== ENCOUNTER → 2022-02-25 | Outpatient (CLI) | payer BC ==
--- NOTE | 2022-02-25 23:27 | CT ---
EXAMINATION TYPE: CT cervical spine wo con DATE OF EXAM: 02/25/2022 COMPARISON: CT cervical spine June 13, 2021 HISTORY: headaches and neck pain, no injury CT DLP: 459 mGycm. Automated Exposure Control for Dose Reduction was Utilized. TECHNIQUE: CT scan of the cervical spine is obtained without contrast, axial images are obtained, sa gittal and coronal reformatted images are also reviewed. FINDINGS: Cervical spine is visualized in its entirety from C1 through upper thoracic levels, there i s persistent grade 1 retrolisthesis C4 on C5 and C5 on C6. Prevertebral soft tissue appears within n ormal limits. The C1-C2 articulation is within normal limits on the coronal images. Vertebral body h eights are maintained. Moderate disc space narrowing and spurring C5-C6 level is redemonstrated. Mild disc space narrowing and spurring C4-C5 level is redemonstrated. Review of axial images shows C2-C3 and C3-C4 levels remain within normal limits. Axial images at C4-C5 level demonstrate spondylolisthesis with broad based right paracentral spur dis c complex effacing anterior thecal sac and causing asymmetric moderate right-sided neural foraminal n arrowing. Axial images at C5-C6 level shows spondylosis with posterior spur disc complex effacing the anterior thecal sac and causing [id number] bilateral neural foraminal narrowing. Axial images at C6-C7 and C7-T1 levels appear within normal limits. Thyroid gland is unremarkable. Maru ng apices show no pneumothorax. IMPRESSION: Spondylolisthesis and degenerative change.
== END | disposition home or self-care (01) ==
LOC: RADCTMAIN 17:46
PROVIDERS: ATTEND Psychiatry & Neurology Neurology
DX: M47.812 Spondylosis without myelopathy or radiculopathy, cervical region (principal); M43.12 Spondylolisthesis, cervical region
CPT/HCPCS: 72125

== ENCOUNTER → 2022-03-01 | Outpatient (CLI) | payer BC ==
[2022-03-01 08:16] LABS: African American GFR (CKD) >90 (>60 ml/min/1.73 sqM); Blood Urea Nitrogen 17 mg/dL (9-20); Non-African American GFR(CKD) 79 (>60 ml/min/1.73 sqM)
--- NOTE | 2022-03-01 10:07 | CT ---
EXAMINATION TYPE: CT abdomen pelvis w con DATE OF EXAM: 03/01/2022 COMPARISON: CT dated 06/13/2021 HISTORY: Epigastric abdominal pain. History of pancreatitis. CT DLP: 645.6 mGycm Automated exposure control for dose reduction was used. TECHNIQUE: Helical acquisition of images was performed from the lung bases through the pelvis. CONTRAST: Performed with Oral Contrast and with IV Contrast, patient injected with 70ml mL of Isovue 300. FINDINGS: LUNG BASES: No significant abnormality is appreciated. LIVER/GB: No significant abnormality is appreciated. PANCREAS: No significant abnormality is seen. SPLEEN: No significant abnormality is seen. ADRENALS: No significant abnormality is seen. KIDNEYS: No significant abnormality is seen. FREE AIR: No free air is visualized. RETROPERITONEAL ADENOPATHY: None visualized REPRODUCTIVE ORGANS: No significant abnormality is seen URINARY BLADDER: Nondistended. PELVIC ADENOPATHY: No pathologically enlarged pelvic lymph nodes. OSSEOUS STRUCTURES: No gross aggressive bone lesion. BOWEL: No significant abnormality is seen. OTHER: Scattered subcentimeter mesenteric lymph nodes, nonspecific. No sizable ascites. Small fat-con taining umbilical hernia. IMPRESSION: Interval complete resolution of the previously seen signs of acute pancreatitis. Unremarkable pancrea s today. No post-pancreatitis complication identified. Incidental findings as described above.
== END | disposition home or self-care (01) ==
LOC: RADCTMAIN 07:26
PROVIDERS: ATTEND Family Medicine
DX: K44.9 Diaphragmatic hernia without obstruction or gangrene (principal); M50.20 Other cervical disc displacement, unspecified cervical region
CPT/HCPCS: 80201; 82565; 84520; 74177; 36415; Q9967

== ENCOUNTER 2022-06-05 01:06 | Inpatient (IN) | payer BC ==
[2022-06-05] MEDS ORDERED: PANTOPRAZOLE 40 MG/10 ML VIAL IVP STA (01:15)
[2022-06-05] MEDS ORDERED: SODIUM CHLORIDE 0.9% 1,000 ML IV STA (01:15)
[2022-06-05] MEDS ORDERED: ONDANSETRON 4 MG/2 ML VIAL IVP STA (01:15)
--- NOTE | 2022-06-05 01:16 | ED ---
Abdominal Pain HPI - General Chief Complaint: Abdominal Pain Stated Complaint: abd pain Time Seen by Provider: 06/05/22 01:14 Source: patient, RN notes reviewed, old records reviewed Mode of arrival: ambulatory Limitations: no limitations - History of Present Illness Initial Comments: This is a 41-year-old male DF for evaluation positive nausea vomiting abdominal pain. Severe abdominal pain in nature. History of pancreatitis. Patient denies any daily alcohol use or abuse. No fevers. No diarrhea. MD Complaint: abdominal pain -: days(s) Location: epigastric Radiation: epigastric Migration to: epigastric Severity: moderate Severity scale (1-10): 6 Quality: stabbing, sharp Consistency: constant Improves With: nothing Worsens With: nothing Context: other (pancreatitisETOH) Associated Symptoms: nausea, vomiting Treatments Prior to Arrival: other (0) - Related Data Home Medications Medication Instructions Recorded Confirmed Gabapentin [Neurontin] 300 mg PO TID 06/05/22 06/05/22 methocarbamoL [Robaxin] 500 mg PO Q6H 06/05/22 06/05/22 Previous Rx's Medication Instructions Recorded Multivitamins, Thera [Multivitamin 1 tab PO DAILY #30 tablet 06/07/22 (formulary)] Thiamine [Vitamin B-1] 100 mg PO DAILY #30 tablet 06/07/22 oxyCODONE HCL [OxyIR] 5 mg PO Q6H PRN #12 tab 06/07/22 Allergies Allergy/AdvReac Type Severity Reaction Status Date / Time pineapple Allergy Unknown Verified 06/05/22 13:36 Review of Systems ROS Statement: Those systems with pertinent positive or pertinent negative responses have been documented in the HPI. ROS Other: All systems not noted in ROS Statement are negative. Past Medical History Past Medical History: No Reported History Additional Past Medical History / Comment(s): psuedotumor,pancreatitis with abdominal pain-n/v, pain back of head, neck pain and 3 buldging disc, pt reports hx of alcohol abuse History of Any Multi-Drug Resistant Organisms: None Reported Past Surgical History: Tonsillectomy Past Anesthesia/Blood Transfusion Reactions: No Reported Reaction Past Psychological History: Anxiety, Depression Smoking Status: Current every day smoker Past Alcohol Use History: None Reported Past Drug Use History: Marijuana - Past Family History Mother Family Medical History: Cancer Additional Family Medical History / Comment(s): metastatic melanoma Father Additional Family Medical History / Comment(s): alcoholism General Exam Limitations: no limitations General appearance: alert, in no apparent distress, anxious Head exam: Present: atraumatic, normocephalic, normal inspection Eye exam: Present: normal appearance, PERRL, EOMI. Absent: scleral icterus, conjunctival injection, periorbital swelling ENT exam: Present: normal exam, mucous membranes dry Neck exam: Present: normal inspection. Absent: tenderness, meningismus, lymphadenopathy Respiratory exam: Present: normal lung sounds bilaterally. Absent: respiratory distress, wheezes, rales, rhonchi, stridor Cardiovascular Exam: Present: normal rhythm, tachycardia, normal heart sounds. Absent: systolic murmur, diastolic murmur, rubs, gallop, clicks GI/Abdominal exam: Present: soft, tenderness, normal bowel sounds. Absent: distended, guarding, rebound, rigid Extremities exam: Present: normal inspection, full ROM, normal capillary refill. Absent: tenderness, pedal edema, joint swelling, calf tenderness Back exam: Present: normal inspection Neurological exam: Present: alert, oriented X3, CN II-XII intact Psychiatric exam: Present: normal affect, normal mood Skin exam: Present: warm, dry, intact, normal color. Absent: rash Course Vital Signs 06/05/22 06/05/22 06/05/22 01:12 06:02 10:20 Temperature 98.5 F 98.4 F 98.3 F Pulse Rate 115 H Pulse Rate [ 87 70 Pulse Oximetery ] Respiratory 16 18 16 Rate Blood Pressure 129/78 Blood Pressure 118/67 [Left Arm] Blood Pressure 116/72 [Right Arm] O2 Sat by Pulse 98 96 97 Oximetry 06/05/22 15:55 Temperature 98.9 F Pulse Rate Pulse Rate [ 85 Pulse Oximetery ] Respiratory 16 Rate Blood Pressure Blood Pressure [Left Arm] Blood Pressure 114/83 [Right Arm] O2 Sat by Pulse 99 Oximetry - Reevaluation(s) Reevaluation #1: 06/05/22 Record is reviewed Patient symptoms are improved here in the ER Patient is informed of results and questions are answered Medical Decision Making - Medical Decision Making 41 male with abdominal pain. Multiple medical comorbidities, acute on chronic back otitis currently with nausea vomiting hyponatremia multiple M abnormalities. Will be admitted for supportive care - Lab Data Result diagrams: 06/06/22 03:31 06/06/22 03:31 Lab Results 06/05/22 06/05/22 06/05/22 Range/Units 01:46 01:46 01:46 WBC 14.2 H (3.8-10.6) k/uL RBC 4.53 (4.30-5.90) m/uL Hgb 14.9 (13.0-17.5) gm/dL Hct 43.0 (39.0-53.0) % MCV 95.0 (80.0-100.0) fL MCH 32.8 (25.0-35.0) pg MCHC 34.6 (31.0-37.0) g/dL RDW 11.9 (11.5-15.5) % Plt Count 242 (150-450) k/uL MPV 7.9 Neutrophils % 78 % Lymphocytes % 14 % Monocytes % 7 % Eosinophils % 0 % Basophils % 0 % Neutrophils # 11.1 H (1.3-7.7) k/uL Lymphocytes # 1.9 (1.0-4.8) k/uL Monocytes # 0.9 (0-1.0) k/uL Eosinophils # 0.1 (0-0.7) k/uL Basophils # 0.0 (0-0.2) k/uL Sodium 130 L (137-145) mmol/L Potassium 3.6 (3.5-5.1) mmol/L Chloride 93 L (98-107) mmol/L Carbon Dioxide 18 L (22-30) mmol/L Anion Gap 19 mmol/L BUN 14 (9-20) mg/dL Creatinine 0.76 (0.66-1.25) mg/dL Est GFR (CKD-EPI)AfAm >90 (>60 ml/min/1.73 sqM) Est GFR (CKD-EPI)NonAf >90 (>60 ml/min/1.73 sqM) Glucose 104 H (74-99) mg/dL Calcium 9.9 (8.4-10.2) mg/dL Total Bilirubin 1.6 H (0.2-1.3) mg/dL AST 45 (17-59) U/L ALT 45 (4-49) U/L Alkaline Phosphatase 77 (38-126) U/L Ammonia 18 (<30) umol/L Total Protein 7.7 (6.3-8.2) g/dL Albumin 4.9 (3.5-5.0) g/dL Amylase 88 (30-110) U/L Lipase 305 H (23-300) U/L Disposition Clinical Impression: Acute pancreatitis, Abdominal pain, Chronic pancreatitis, Hyponatremia, Hypokalemia, History of alcohol abuse, Transaminitis Disposition: ADMITTED IP TO THIS HOSP Condition: Good Is patient prescribed a controlled substance at d/c from ED?: No Time of Disposition: 03:30
[2022-06-05 01:57] LABS: Basophils % (A) 0 %; Eosinophils # (A) 0.1 k/uL (0-0.7); Eosinophils % (A) 0 %; HGB 14.9 gm/dL (13.0-17.5); Lymphocytes # (A) 1.9 k/uL (1.0-4.8); Lymphocytes % (A) 14 %; MCH 32.8 pg (25.0-35.0); MCHC 34.6 g/dL (31.0-37.0); Mean Platelet Volume 7.9; Monocytes # (A) 0.9 k/uL (0-1.0); Monocytes % (A) 7 %; Neutrophils # (A) 11.1 k/uL (1.3-7.7); Neutrophils % (A) 78 %; Platelet Count 242 k/uL (150-450); RBC 4.53 m/uL (4.30-5.90); RDW 11.9 % (11.5-15.5); WBC 14.2 k/uL (3.8-10.6)
[2022-06-05] MEDS ORDERED: MORPHINE SULFATE 4 MG/ML SYRINGE IVP STA ×3 (02:05→05:37)
[2022-06-05 02:21] LABS: ALT 45 U/L (4-49); AST 45 U/L (17-59); African American GFR (CKD) >90 (>60 ml/min/1.73 sqM); Albumin 4.9 g/dL (3.5-5.0); Alkaline Phosphatase 77 U/L (38-126); Amylase 88 U/L (30-110); Anion Gap 19 mmol/L; Blood Urea Nitrogen 14 mg/dL (9-20); Calcium 9.9 mg/dL (8.4-10.2); Carbon Dioxide 18 mmol/L (22-30); Chloride 93 mmol/L (98-107); Glucose 104 mg/dL (74-99); Lipase 305 U/L (23-300); Non-African American GFR(CKD) >90 (>60 ml/min/1.73 sqM); Potassium 3.6 mmol/L (3.5-5.1); Sodium 130 mmol/L (137-145); Total Bilirubin 1.6 mg/dL (0.2-1.3); Total Protein 7.7 g/dL (6.3-8.2)
--- NOTE | 2022-06-05 02:38 | CT ---
EXAMINATION TYPE: CT abdomen pelvis w con DATE OF EXAM: 06/05/2022 COMPARISON: 03/01/2022 HISTORY: ABD PAIN & NAUSEA. H/O PANCREATITIS CT DLP: 846.7 mGycm Automated exposure control for dose reduction was used. CONTRAST: Performed with IV Contrast, patient injected with 100 mL of Isovue 300. Images obtained from the diaphragm to the floor the pelvis with the IV contrast. Lung bases are clear. No pleural effusion. Heart size is normal. No pericardial effusion. Liver spleen stomach pancreas and gallbladder appear intact. The bile ducts are not dilated. There is some minimal subtle fat stranding at the tail of the pancreas. There is no adrenal mass. Kidneys show satisfactory contrast opacification. No hydronephrosis. No ret roperitoneal adenopathy. Delayed images show normal renal excretion. Ureters are not dilated. The trang dder distends smoothly. No inguinal hernia. No free fluid in the pelvis. No pelvic mass. Appendix cristina ears normal. The lumbar vertebra appear intact. No compression fracture. Disc spaces are normal. The bony pelvis is intact. The hip joints are intact. Sacroiliac joints appear normal. IMPRESSION: There is mild fat stranding at the tail of the pancreas consistent with mild pancreatitis which is im proved compared to old exam.
[2022-06-05] MEDS ORDERED: ONDANSETRON 4 MG/2 ML VIAL IVP PRN (03:30)
[2022-06-05] MEDS ORDERED: NALOXONE 0.4 MG/ML 1 ML VIAL IV PRN (03:30)
[2022-06-05] MEDS: SODIUM CHLORIDE 0.9% 1,000 ML IV SCH ×4 (03:40→21:43)
[2022-06-05] MEDS: MORPHINE SULFATE 4 MG/ML SYRINGE IVP PRN ×4 (09:48→21:40)
[2022-06-05] MEDS: PANTOPRAZOLE 40 MG/10 ML VIAL IV SCH (09:49)
--- NOTE | 2022-06-06 00:47 | P.HPIM ---
History of Present Illness H&P Date: 06/05/22 Chief Complaint: Abdominal pain 41-year-old male with a known history of pancreatic tumor, chronic neck pain and alcohol abuse, anxiety/depression currently under smoker presents to ER with complaints of abdominal pain for the past 5 days. Patient states that he did drink alcohol about a week ago. Denies any complaints of fever or chills. Pain is mainly in the epigastric and left upper quadrant and to the back. Denied abdominal chest pain or shortness of breath. CT of the abdomen pelvis showed there is mild fat stranding at the tail of the pancreas consistent with mild pancreatitis which is improved compared to old exam. Laboratory data showed WBC 14.2 hemoglobin 14.9 and platelets 242 Sodium 130 potassium 3.6 chloride 93 bicarb is 18 BUN 49 creatinine 0.76 and total bilirubin level is 1.6 and lipase level is 305 Review of Systems Constitutional: Patient denies any fever or chills . no Generalized weakness. Abdomen: Patient does complain of nausea vomiting and epigastric discomfort. Also left upper quadrant discomfort./Pain. Cardiovascular: Patient denies any chest pain or short of breath no palpitations. Respiratory: patient denied any cough . no sputum production. No shortness of breath Neurologic: Patient denied any numbness or tingling headache. Musculoskeletal: Patient denies any complaints of joint swelling or deformity. Skin: Negative Psychiatric: Negative Endocrine: No heat or cold intolerance. No recent weight gain. Genitourinary: No dysuria or hematuria. All other 14 point ROS negative except the above Past Medical History Past Medical History: No Reported History Additional Past Medical History / Comment(s): psuedotumor,pancreatitis with abdominal pain-n/v, pain back of head, neck pain and 3 buldging disc, pt reports hx of alcohol abuse History of Any Multi-Drug Resistant Organisms: None Reported Past Surgical History: Tonsillectomy Additional Past Surgical History / Comment(s): neck surgery in March Past Anesthesia/Blood Transfusion Reactions: No Reported Reaction Past Psychological History: Anxiety, Depression Smoking Status: Current every day smoker Past Alcohol Use History: None Reported Additional Past Alcohol Use History / Comment(s): per patient does not drink alcohol; hx of abuse - Past Family History Mother Family Medical History: Cancer Additional Family Medical History / Comment(s): metastatic melanoma Father Additional Family Medical History / Comment(s): alcoholism Medications and Allergies Home Medications Medication Instructions Recorded Confirmed Type Gabapentin [Neurontin] 300 mg PO TID 06/05/22 06/05/22 History methocarbamoL [Robaxin] 500 mg PO Q6H 06/05/22 06/05/22 History Multivitamins, Thera [Multivitamin 1 tab PO DAILY #30 tablet 06/07/22 Rx (formulary)] Thiamine [Vitamin B-1] 100 mg PO DAILY #30 tablet 06/07/22 Rx oxyCODONE HCL [OxyIR] 5 mg PO Q6H PRN #12 tab 06/07/22 Rx Allergies Allergy/AdvReac Type Severity Reaction Status Date / Time pineapple Allergy Unknown Verified 06/05/22 13:36 Physical Exam Vitals: Vital Signs Temp Pulse Pulse Resp BP BP BP 06/05/22 10:20 98.3 F 70 16 116/72 06/05/22 06:02 98.4 F 87 18 118/67 06/05/22 01:12 98.5 F 115 H 16 129/78 Pulse Ox 06/05/22 10:20 97 06/05/22 06:02 96 06/05/22 01:12 98 Intake and Output 06/04/22 06/05/22 06/05/22 22:59 06:59 14:59 Other: Weight 86.183 kg PHYSICAL EXAMINATION: Patient is lying in the bed comfortably, no acute distress, awake alert and oriented.. HEENT: Normocephalic. Neck is supple. Pupils reactive. Nostrils clear. Oral cavity is moist. Neck reveals no JVD, carotid bruits, or thyromegaly. CHEST EXAMINATION: Trachea is central. Symmetrical expansion. Lung wagner clear to auscultation and percussion. CARDIAC: Normal S1, S2 with no gallops. No murmurs ABDOMEN: Soft. Bowel sounds present. Epigastric tenderness. No guarding or rigidity.. No organomegaly. No abdominal bruits. Extremities: reveal no edema. No clubbing or cyanosis Neurologically awake, alert, oriented x3 with well-coordinated movements. No focal deficits noted Skin: No rash or skin lesions. Psychiatric: Coperative. Nonsuicidal, Musculoskeletal: No joint swelling or deformity. Normal range of motion. Results CBC & Chem 7: 06/06/22 03:31 06/06/22 03:31 Labs: Abnormal Lab Results - Last 24 Hours (Table) 06/05/22 06/05/22 Range/Units 01:46 01:46 WBC 14.2 H (3.8-10.6) k/uL Neutrophils # 11.1 H (1.3-7.7) k/uL Sodium 130 L (137-145) mmol/L Chloride 93 L (98-107) mmol/L Carbon Dioxide 18 L (22-30) mmol/L Glucose 104 H (74-99) mg/dL Total Bilirubin 1.6 H (0.2-1.3) mg/dL Lipase 305 H (23-300) U/L Thrombosis Risk Factor Assmnt - DVT/VTE Prophylaxis DVT/VTE Prophylaxis: Pharmacologic Prophylaxis ordered - Choose All That Apply Any of the Below Risk Factors Present?: Yes Each Factor Represents 1 point: Obesity (BMI >25) Thrombosis Risk Factor Assessment Total Risk Factor Score: 1 Thrombosis Risk Factor Assessment Level: Low Risk Assessment and Plan Assessment: Acute alcoholic pancreatitis Alcohol abuse Chronic neck pain History of pseudotumor Anxiety/depression Currently everyday smoker DVT prophylaxis Plan: Patient declined IV hydration with normal saline and nothing by mouth. Continue with IV pain medications. Follow-up closely and monitor for alcohol withdrawal symptoms. Smoking cessation has been counseled extensively. Time with Patient: Greater than 30
[2022-06-06] MEDS: MORPHINE SULFATE 4 MG/ML SYRINGE IVP PRN ×6 (02:02→21:47)
[2022-06-06] MEDS: MELATONIN 5 MG TABLET PO SCH ×2 (02:52→21:47)
[2022-06-06] MEDS: HEPARIN SODIUM,PORCINE/PF 5,000 UNIT/0.5 ML SYRINGE SQ SCH ×3 (07:08→23:54)
[2022-06-06] MEDS: PANTOPRAZOLE 40 MG/10 ML VIAL IV SCH (07:42)
[2022-06-06 09:29] LABS: Basophils # (A) 0.04 X 10*3/uL (0.00-0.10); Basophils % (A) 0.4 %; Eosinophils # (A) 0.04 X 10*3/uL (0.04-0.35); Eosinophils % (A) 0.4 %; HCT 37.2 % (39.6-50.0); HGB 12.4 g/dL (13.0-17.0); Immature Grans, Automated 0.4 %; Lymphocytes # (A) 1.36 X 10*3/uL (0.90-5.00); Lymphocytes % (A) 14.7 %; MCH 32.8 pg (27.0-32.0); MCHC 33.3 g/dL (32.0-37.0); MCV 98.4 fL (80.0-97.0); Mean Platelet Volume 10.7 fL (9.5-12.2); Monocytes # (A) 0.83 X 10*3/uL (0.20-1.00); NRBC Per 100 WBC 0 /100 WBCS (0.0-0.0); Neutrophils # (A) 6.95 X 10*3/uL (1.80-7.70); Neutrophils % (A) 75.1 %; Platelet Count 213 X 10*3/uL (140-440); RBC 3.78 X 10*6/uL (4.40-5.60); RDW 12.4 % (11.5-14.5); WBC 9.26 X 10*3/uL (4.50-10.00)
[2022-06-06 09:45] LABS: African American GFR (CKD) 131.8 (60.0-200.0); Albumin 3.7 g/dL (3.8-4.9); Albumin/Globulin Ratio 1.77 (1.60-3.17); Anion Gap 11.8 mmol/L (10.00-18.00); BUN/Creat Ratio 15.51 Ratio (12.00-20.00); Blood Urea Nitrogen 11.9 mg/dL (9.0-27.0); Calcium 8.6 mg/dL (8.7-10.3); Carbon Dioxide 23.5 mmol/L (20.0-27.5); Globulin 2.1 g/dL (1.6-3.3); Non-African American GFR(CKD) 113.7 (60.0-200.0); Potassium 3.7 mmol/L (3.5-5.5); Total Bilirubin 0.7 mg/dL (0.30-1.20); Total Protein 5.8 g/dL (6.2-8.2)
[2022-06-06] MEDS: SODIUM CHLORIDE 0.9% 1,000 ML IV SCH ×2 (11:44→16:39)
[2022-06-06] MEDS ORDERED: MELATONIN 5 MG TABLET PO SCH (21:00)
[2022-06-07] MEDS ORDERED: IBUPROFEN 600 MG TAB PO SCH (01:00)
[2022-06-07] MEDS: SODIUM CHLORIDE 0.9% 1,000 ML IV SCH ×3 (01:46→18:22)
[2022-06-07] MEDS: MORPHINE SULFATE 4 MG/ML SYRINGE IVP PRN ×4 (02:01→15:57)
[2022-06-07] MEDS: ACETAMINOPHEN TAB 325 MG TAB PO PRN ×3 (02:07→16:02)
[2022-06-07] MEDS: HEPARIN SODIUM,PORCINE/PF 5,000 UNIT/0.5 ML SYRINGE SQ SCH ×2 (07:19→15:57)
[2022-06-07] MEDS: PANTOPRAZOLE 40 MG/10 ML VIAL IV SCH (07:19)
[2022-06-07 07:39] VITALS: RESP 18; TEMP 97.5
[2022-06-07 15:22] VITALS: BP 130/79; PULSE 70
--- NOTE | 2022-06-13 13:33 | P.PN ---
Subjective Progress Note Date: 06/06/22 41-year-old male with a known history of pancreatic tumor, chronic neck pain and alcohol abuse, anxiety/depression currently under smoker presents to ER with complaints of abdominal pain for the past 5 days. Patient states that he did drink alcohol about a week ago. Denies any complaints of fever or chills. Pain is mainly in the epigastric and left upper quadrant and to the back. Denied abdominal chest pain or shortness of breath. CT of the abdomen pelvis showed there is mild fat stranding at the tail of the pancreas consistent with mild pancreatitis which is improved compared to old exam. Laboratory data showed WBC 14.2 hemoglobin 14.9 and platelets 242 Sodium 130 potassium 3.6 chloride 93 bicarb is 18 BUN 49 creatinine 0.76 and total bilirubin level is 1.6 and lipase level is 305 06/06/2022 Patient is currently lying in bed. Awake alert oriented x3. Abdominal pain is better today. No complaints of chest pain or shortness of breath. No fever no chills. Clinically improving. Laboratory data showed WBC 9.2 hemoglobin 12.4 and platelets 213 Sodium 137 potassium 3.7 chloride 101 bicarb is 23.5 BUN 11.9 and creatinine 0.8 and lipase level came down to 111 Patient is being current IV hydration and IV Dilaudid and monitor for alcohol withdrawal symptoms. Current medications reviewed. Objective - Vital Signs Vital signs: Vital Signs Temp 98.4 F 06/06/22 18:50 Pulse 62 06/06/22 19:20 Resp 16 06/06/22 19:20 BP 123/78 06/06/22 18:50 Pulse Ox 99 06/06/22 18:50 FiO2 Intake & Output 06/06/22 06/06/22 06/07/22 06:59 18:59 06:59 Other: Voiding Method Toilet Toilet # Voids 2 2 - Exam PHYSICAL EXAMINATION: Patient is lying in the bed comfortably, no acute distress, awake alert and oriented.. HEENT: Normocephalic. Neck is supple. Pupils reactive. Nostrils clear. Oral cavity is moist. Neck reveals no JVD, carotid bruits, or thyromegaly. CHEST EXAMINATION: Trachea is central. Symmetrical expansion. Lung wagner clear to auscultation and percussion. CARDIAC: Normal S1, S2 with no gallops. No murmurs ABDOMEN: Soft. Bowel sounds present. Epigastric tenderness. No guarding or rigidity.. No organomegaly. No abdominal bruits. Extremities: reveal no edema. No clubbing or cyanosis Neurologically awake, alert, oriented x3 with well-coordinated movements. No focal deficits noted Skin: No rash or skin lesions. Psychiatric: Coperative. Nonsuicidal, Musculoskeletal: No joint swelling or deformity. Normal range of motion. - Labs CBC & Chem 7: 06/06/22 03:31 06/06/22 03:31 Labs: Abnormal Lab Results - Last 24 Hours (Table) 06/06/22 06/06/22 Range/Units 03:31 03:31 RBC 3.78 L (4.40-5.60) X 10*6/uL Hgb 12.4 L (13.0-17.0) g/dL Hct 37.2 L (39.6-50.0) % MCV 98.4 H (80.0-97.0) fL MCH 32.8 H (27.0-32.0) pg Glucose 139 H (70-110) mg/dL Calcium 8.6 L (8.7-10.3) mg/dL Total Protein 5.8 L (6.2-8.2) g/dL Albumin 3.7 L (3.8-4.9) g/dL Lipase 111 H (14-60) U/L Assessment and Plan Assessment: Acute alcoholic pancreatitis Alcohol abuse Chronic neck pain History of pseudotumor Anxiety/depression Currently everyday smoker DVT prophylaxis Plan: Patient declined IV hydration with normal saline and nothing by mouth. Continue with IV pain medications. Follow-up closely and monitor for alcohol withdrawal symptoms. Smoking cessation has been counseled extensively. Time with Patient: Greater than 30
--- NOTE | 2022-06-13 13:34 | P.DS ---
Providers Date of admission: 06/05/22 04:45 Expected date of discharge: 06/07/22 Attending physician: Tejas Lopez Primary care physician: [facility] Course: Discharge diagnosis Acute alcoholic pancreatitis Alcohol abuse Chronic neck pain History of pseudotumor Anxiety/depression Currently everyday smoker DVT prophylaxis Hospital course 41-year-old male with a known history of pancreatic tumor, chronic neck pain and alcohol abuse, anxiety/depression currently under smoker presents to ER with complaints of abdominal pain for the past 5 days. Patient states that he did drink alcohol about a week ago. Denies any complaints of fever or chills. Pain is mainly in the epigastric and left upper quadrant and to the back. Denied abdominal chest pain or shortness of breath. CT of the abdomen pelvis showed there is mild fat stranding at the tail of the pancreas consistent with mild pancreatitis which is improved compared to old exam. Laboratory data showed WBC 14.2 hemoglobin 14.9 and platelets 242 Sodium 130 potassium 3.6 chloride 93 bicarb is 18 BUN 49 creatinine 0.76 and total bilirubin level is 1.6 and lipase level is 305 06/06/2022 Patient is currently lying in bed. Awake alert oriented x3. Abdominal pain is better today. No complaints of chest pain or shortness of breath. No fever no chills. Clinically improving. Laboratory data showed WBC 9.2 hemoglobin 12.4 and platelets 213 Sodium 137 potassium 3.7 chloride 101 bicarb is 23.5 BUN 11.9 and creatinine 0.8 and lipase level came down to 111 Patient is being current IV hydration and IV Dilaudid and monitor for alcohol withdrawal symptoms. 06/07/2022 Patient is currently resting in bed. Awake alert oriented x3. No complaints of chest pain or shortness of breath. Abdominal pain is much improved. No nausea. Patient is able to tolerate oral diet and will be advanced to soft diet later today. Lipase level is normalizing. No complaints of fever or chills. No headache or dizziness or lightheadedness. No other acute overnight issues. Patient is being discharged home today. Counseled extensively for alcohol abstinence. PHYSICAL EXAMINATION: Patient is lying in the bed comfortably, no acute distress, awake alert and oriented.. HEENT: Normocephalic. Neck is supple. Pupils reactive. Nostrils clear. Oral cavity is moist. Neck reveals no JVD, carotid bruits, or thyromegaly. CHEST EXAMINATION: Trachea is central. Symmetrical expansion. Lung wagner clear to auscultation and percussion. CARDIAC: Normal S1, S2 with no gallops. No murmurs ABDOMEN: Soft. Bowel sounds present. Nontender. No organomegaly. No abdominal bruits. Extremities: reveal no edema. No clubbing or cyanosis Neurologically awake, alert, oriented x3 with well-coordinated movements. No focal deficits noted Skin: No rash or skin lesions. Psychiatric: Coperative. Nonsuicidal, Musculoskeletal: No joint swelling or deformity. Normal range of motion. Discharge vitals reviewed. Patient Condition at Discharge: Good Plan - Discharge Summary New Discharge Prescriptions: New Multivitamins, Thera [Multivitamin (formulary)] 1 tab PO DAILY #30 tablet Thiamine [Vitamin B-1] 100 mg PO DAILY #30 tablet Continue Gabapentin [Neurontin] 300 mg PO TID methocarbamoL [Robaxin] 500 mg PO Q6H oxyCODONE HCL [OxyIR] 5 mg PO Q6H PRN #12 tab PRN Reason: Pain Discharge Medication List Gabapentin [Neurontin] 300 mg PO TID 06/05/22 [History] methocarbamoL [Robaxin] 500 mg PO Q6H 06/05/22 [History] Multivitamins, Thera [Multivitamin (formulary)] 1 tab PO DAILY #30 tablet 06/07/22 [Rx] Thiamine [Vitamin B-1] 100 mg PO DAILY #30 tablet 06/07/22 [Rx] oxyCODONE HCL [OxyIR] 5 mg PO Q6H PRN #12 tab 06/07/22 [Rx] Follow up Appointment(s)/Referral(s): Jo-Ann Barnett MD [Primary Care Provider] - 06/17/22 1:15 pm Patient Instructions/Handouts: Pancreatitis (DC) Discharge Disposition: HOME SELF-CARE
== END 2022-06-07 18:39 | disposition home or self-care (01) | DRG 439 ==
LOC: EC 01:06 → 6NMEDSUR 03:30 → 4SSUR 04:40 → OBSVTOIN 04:45 → 4SSUR 13:42
PROVIDERS: ADMIT Internal Medicine; ATTEND Internal Medicine
DX: K85.20 Alcohol induced acute pancreatitis without necrosis or infection (principal); E87.1 Hypo-osmolality and hyponatremia; F10.10 Alcohol abuse, uncomplicated; K86.0 Alcohol-induced chronic pancreatitis; Z28.310 Unvaccinated for COVID-19; D49.0 Neoplasm of unspecified behavior of digestive system; F32.A Depression, unspecified; F41.9 Anxiety disorder, unspecified; G89.29 Other chronic pain; M54.2 Cervicalgia; R74.01 Elevation of levels of liver transaminase levels; F17.200 Nicotine dependence, unspecified, uncomplicated; Z71.6 Tobacco abuse counseling; Z79.899 Other long term (current) drug therapy; Z71.41 Alcohol abuse counseling and surveillance of alcoholic; Z63.72 Alcoholism and drug addiction in family; Z91.018 Allergy to other foods; Z81.1 Family history of alcohol abuse and dependence
CPT/HCPCS: 36415; 74177; 80053; 82140; 82150; 83690; 85025; 96361; 96374; 96375; 96376; 99285

== ENCOUNTER → 2023-10-06 | Outpatient (CLI) | payer OTHER ==
--- NOTE | 2023-10-06 15:27 | XR ---
EXAMINATION TYPE: XR chest 2V DATE OF EXAM: 10/06/2023 COMPARISON: 01/24/2022 INDICATION: Cough chest pain TECHNIQUE: Frontal and lateral views of the chest are obtained. FINDINGS: The heart size is normal. The pulmonary vasculature is normal. The lungs are clear. There is some eventration of the left diaphragm. IMPRESSION: 1. No acute pulmonary process.
== END | disposition home or self-care (01) ==
LOC: RADXRMAIN 14:44
PROVIDERS: ATTEND Emergency Medicine
DX: R05.9 Cough, unspecified (principal); R07.1 Chest pain on breathing
CPT/HCPCS: 71046